=== PATIENT | female | born 1960 | race Caucasian/White ===

== ENCOUNTER 2025-06-16 12:57 | Observation (INO) ==
[2025-06-16] MEDS: ACETAMINOPHEN 1,000 MG/100 ML VIAL IV STA (13:38)
[2025-06-16 13:56] LABS: Hematocrit (blood only) 22.9 % (37.0-47.0); Hemoglobin 6.9 g/dl (12.0-16.0); Mean Corpuscular Hemoglobin 29.7 pg (25.0-34.0); Mean Corpuscular Volume 98.7 fL (80.0-100.0); Platelet Count 122 K/uL (130-400); RDW Standard Deviation 75.7 fL (36.4-46.3); Red Blood Count 2.32 M/uL (4.20-5.40); White Blood Count 11.60 K/ul (4.8-10.8)
[2025-06-16] MEDS: PROCHLORPERAZINE 5 MG in SYRINGE 4 ML IV ONE (14:15)
[2025-06-16 14:17] LABS: Alanine Aminotransferase 33 U/L (7-52); Albumin Globulin Ratio 1.0 (0.9-2); Albumin Level 2.8 gm/dl (3.4-5.0); Alkaline Phosphatase 98 U/L (34-104); Anion Gap 11 (3-11); Bilirubin,Total 0.7 mg/dl (0.2-1.0); Blood Urea Nitrogen 31 mg/dl (6-23); Calcium 8.4 mg/dl (8.6-10.3); Carbon Dioxide 32 mmol/L (21-32); Chloride 95 mmol/L (98-107); Globulin 2.7 gm/dl (2.5-4.0); Glucose 133 mg/dl (70-99(Fasting)); Lipase 10 U/L (11-82); Magnesium 2.1 mg/dl (1.7-2.4); Potassium 3.5 mmol/L (3.5-5.1); Sodium 138 mmol/L (136-145); Total Protein 5.5 gm/dl (6.0-8.3)
[2025-06-16 14:22] LABS: INR 1.1 (0.9-1.1); Partial Thromboplastin Time 23 Seconds (21-31); Prothrombin Time 11.9 Seconds (9.0-12.0)
--- NOTE | 2025-06-16 14:23 | Emergency Department Note ---
Impression & Plan Acute on chronic anemia, Headache ED Provider Note CHIEF COMPLAINT: Headache HISTORY OF PRESENTING ILLNESS: Patient is a 64-year-old female presents to the emergency department today for complaints of a headache. She states that it has been persistent for the past week and has been unable to alleviate it with any [id number] pain medications. Patient is a dialysis patient receives dialysis Thursday and Thursday. She did have dialysis this morning but however only had half of her dialysis as there was a problem with the water supply. She denies any visual changes, dizziness, lightheadedness, syncope. She denies any falls or trauma. Patient denies chest pain, sob, breathing difficulties, abdominal pain, fevers/chills, blood in stool or urine, any recent illness, or any recent travel. REVIEW OF SYSTEMS: See HPI for pertinent positives and pertinent negatives. ALLERGIES: See below MEDICATIONS: See below PAST MEDICAL HISTORY: See below PHYSICAL EXAM: VITALS: Vitals are noted on the nurse's note and reviewed by myself. GENERAL: Non toxic, in no acute distress, non-diaphoretic. SKIN: Capillary refill <2 sec. EYES: PERRLA. EOMI. Conjunctivae without injection, sclerae without icterus. No nystagmus. NECK: Supple without nuchal rigidity. HEART: Regular rate and rhythm without murmurs gallops or rubs. LUNGS: Clear to auscultation bilaterally without wheezes, rales or rhonchi. No retractions or accessory muscle use. ABDOMEN: Positive bowel sounds x 4. Normal tympanic percussion. Soft, nontender to palpation. No masses or hepatosplenomegaly. Delgado sign negative. No CVA tenderness. No guarding, rigidity, or rebound tenderness. No focal RLQ or LLQ tenderness. MUSCULOSKELETAL: Range of motion intact all 4 extremities. Ambulatory with a steady gait. No gross musculoskeletal defects. NEURO: Sensation intact to all 4 extremities. Patient was alert and oriented. No focal neurological deficits. DIFFERENTIAL DIAGNOSIS: The differential diagnosis includes acute intracranial bleed, meningitis, encephalitis, mass or mass effect, sinusitis, infection, tumor, headache, temporal arteritis and carbon monoxide exposure, and migraine. ED COURSE AND MEDICAL DECISION MAKING: HISTORY FROM INDEPENDENT HISTORIAN: History was provided by the patient and her family members at bedside and a secondary historian. MONITOR: Continuous ekg monitor tech: Order was placed for continuous ekg monitor tech. Patient was placed on the ekg monitor tech and continuous pulse ox. Patient was noted to be in normal sinus rhythm at an initial rate of 88 bpm per my interpretation. EKG: EKG was interpreted by myself as sinus rhythm with PACs with ventricular rate of 85 bpm. INTERPRETATION OF LABS: I interpreted the labs with full lab results as below in the lab section of this note. Laboratory results pertinent to the emergent complaint are discussed in the MDM section below. The patient was advised to follow up with their PCP and/or specialist(s) for further outpatient monitoring and management of any abnormal results. INTERPRETATION OF IMAGING: Imaging studies were interpreted by myself and read by radiology as per the imaging section of this note. The patient was advised to follow up with their PCP and/or specialist(s) for further outpatient management of any non-emergent abnormal findings. CHRONIC MEDICAL/SOCIAL CONDITIONS AFFECTING CARE: No social concerns were identified as barriers to patients care. EXTERNAL RECORDS REVIEWED: Patient's nephrology report from 03/02/2025. ESCALATION OF CARE CONSIDERED: I considered admission on this patient due to acute anemia and requiring blood transfusion. CONSULTATIONS: I had a meaningful discussion about this patient with Dr. Wood who agrees with my assessment and the treatment plan. I also consulted with Dr. Ocampo who accepts the patient for admission. SUMMARY: I examined the patient for complaints of headache. A physical exam and history were performed. Nursing notes, EMR, and medication list were personally reviewed. CBC shows a mild leukocytosis with white blood cell count of 11.60. Anemia with hemoglobin of 6.9. Platelet count is 122 which appears to be baseline for the patient. PT/INR and APTT are normal. CMP does show a chloride of 95, BUN of 31, creatinine of 3.52 which is baseline for the patient. Troponin was noted to be 84.2 with a 2-hour repeat of 80. BNP was 1270. Hemoccult was negative. Chest x-ray shows some cardiomegaly with pulmonary vascular congestion and trace pleural effusions plan. With the patient's headache and not having any focal neurological findings she was ordered a CT scan without contrast of the head that showed no acute intracranial findings. Patient was ordered 1 unit of packed red blood cells for transfusion with Lasix 40 mg post transfusion. Risks versus benefits were discussed with the patient and her daughter who verbalized understanding. Consent was signed by the patient and her daughter. Patient was given 1 g of Tylenol and Compazine 5 mg with improvement in pain and nausea. I did consult Dr. Rolon for admission to the hospital. The patient was accepted. I have personally spent 45 minutes of critical care time in the direct management of this patient. This includes bedside care, interpretation of diagnostic studies, and testing, discussion with consultants, patient, and family members, and other required patient management activities. This 45 minutes is in excess of all separately billable procedures. DIAGNOSIS: Acute anemia, headache TREATMENT PLAN/DISCHARGE INSTRUCTIONS: Admit to hospitalist services. The chart was completed utilizing [employer] voice recognition software.Grammatical errors, random word insertions, pronoun errors, and incomplete sentences are an occasional consequence of this system due to software limitations, ambient noise, and hardware issues.Any formal questions or concerns about the content, text, or information contained within the body of this dictation should be directly addressed to the physician for clarification. Past Med/Surg History Problem List (Updated 06/17/25 @ 22:30 by CALLI Manzo) Central line-associated bloodstream infection Gram-positive bacteremia Acute sepsis Headache (Acute) Elevated troponin Acute on chronic anemia (Acute) Goiter Sigmoid diverticulitis Chronic sinusitis Colon polyps IBS (irritable colon syndrome) Medical History Chronic heart failure with preserved ejection fraction (HFpEF) HTN (hypertension) Chronic anemia ESRD on dialysis Primary pauci-immune necrotizing and crescentic glomerulonephritis Hypothyroid Surgical History H/O: hysterectomy Hx of colonoscopy 06/2024 Family History Father Diabetes Lung disease Mother Leukemia Son Diabetes Social History Smoking Status: Never smoker Second Hand Exposure: No; Do You Dip or Chew Tobacco: No; Tobacco Cessation Education Requested by Patient: No Hx Alcohol Use: No Hx Substance Use: No Preferred Language: Gambian Communication Ability: Effective Visual Impairment: No Limitations Hearing Ability: Normal It Consultant Required: No Beliefs That Will Affect Care: None marital status: Current Living Situation: Spouse current occupational status: retired 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 Other Information That Helps Us Care for You: No Feels Safe at Home: Yes Safety Concerns: Feels Safe At This Time Diet: other and regular Diet Comment: renal diet Dental Care, Regularly: Yes Physical Activity Frequency: Does not Exercise Seatbelt Use: always Do you think of yourself as: straight/heterosexual Gender Identity: Female Assistive Devices: Cane and Walker Allergies Allergies Allergy/AdvReac Type Severity Reaction Status Date / Time latex Allergy Unknown unknown Verified 04/10/25 11:43 Home Meds Home Medications Medication Instructions Recorded Confirmed acetaminophen 325 mg capsule 650 mg PO Q6H PRN pain 03/22/25 06/16/25 bumetanide 2 mg tablet 2 mg PO BID 04/10/25 06/16/25 calcium acetate 667 mg tablet 1,334 mg PO TIDM 04/10/25 06/16/25 carvedilol 3.125 mg tablet (Coreg) 3.125 mg PO BID 04/10/25 06/16/25 levothyroxine 125 mcg tablet 125 mcg PO MOTUWETHFR 04/10/25 06/16/25 multivitamin 1 tab PO DAILY 04/10/25 06/16/25 pantoprazole 40 mg tablet,delayed 40 mg PO DAILY 04/10/25 06/16/25 release (Protonix) amlodipine 10 mg tablet 10 mg PO DAILY 06/16/25 06/16/25 levothyroxine 125 mcg tablet 62.5 mcg PO SA 06/16/25 06/16/25 vitamin B complex and vitamin C 1 cap PO DAILY 06/16/25 06/16/25 no.20-folic acid 1 mg capsule ([place] Caps) Results & Data (ED) Vital Signs Vital Signs - 24 hr 06/16/25 12:58 Temperature 37.1 C Temperature Source Temporal Artery Scan Pulse Rate 94 H Respiratory Rate 18 Respiratory Effort / Characteristics Non-Labored Spontaneous Respiratory Depth Normal Respiratory Pattern Regular Blood Pressure 117/60 Blood Pressure Mean 79 Pulse Oximetry 99 Oxygen Delivery Method Room Air Sepsis Recent Fever Within 48 Hours No Sepsis New/Unexplained Change in Mental Status N/A Sepsis Action Taken by Nursing No Action Required Laboratory Data 06/17/25 02:46 06/17/25 02:46 Lab Results 06/16/25 06/16/25 Range/Units 13:35 14:36 WBC 11.60 H (4.8-10.8) K/ul RBC 2.32 L (4.20-5.40) M/uL Hgb 6.9 L* (12.0-16.0) g/dl Hct 22.9 L (37.0-47.0) % MCV 98.7 (80.0-100.0) fL MCH 29.7 (25.0-34.0) pg MCHC 30.1 L (32.0-36.0) g/dL RDW Std Deviation 75.7 H (36.4-46.3) fL RDW Coeff of Ct 20.9 H (11.5-14.5) % Plt Count 122 L (130-400) K/uL MPV 10.4 (9.4-12.4) fL Immature Gran % (Auto) 1.1 % Neut % (Auto) 85.4 % Lymph % (Auto) 9.9 % [place] % (Auto) 3.4 % Eos % (Auto) 0.0 % Baso % (Auto) 0.2 % Neut # (Auto) 9.90 H (1.40-6.50) K/uL Lymph # (Auto) 1.15 L (1.20-3.40) K/uL [place] # (Auto) 0.40 (0.11-0.59) K/uL Eos # (Auto) 0.00 (0.00-0.50) K/uL Baso # (Auto) 0.02 (0.00-0.20) K/uL Immature Gran # (Auto) 0.13 (0.01-0.20) K/uL Absolute Nucleated RBC 0.02 (0.00-0.12) K/uL Nucleated RBC % (auto) 0.2 % Polychromasia 1+ Anisocytosis Present PT 11.9 (9.0-12.0) Seconds INR 1.1 (0.9-1.1) APTT 23 (21-31) Seconds PTT Ratio 0.8 Sodium 138 (136-145) mmol/L Potassium 3.5 (3.5-5.1) mmol/L Chloride 95 L (98-107) mmol/L Carbon Dioxide 32 (21-32) mmol/L Anion Gap 11 (3-11) BUN 31 H (6-23) mg/dl Creatinine 3.52 H (0.6-1.2) mg/dl Est Cr Clr Drug Dosing Not Reportable eGFR 13.90 BUN/Creatinine Ratio 8.8 L (10-20) Glucose 133 H (70-99(Fasting)) mg/dl Calcium 8.4 L (8.6-10.3) mg/dl Phosphorus 2.5 (2.5-4.9) mg/dl Magnesium 2.1 (1.7-2.4) mg/dl Total Bilirubin 0.7 (0.2-1.0) mg/dl AST 36 (13-39) U/L ALT 33 (7-52) U/L Alkaline Phosphatase 98 (34-104) U/L Troponin I High Sens 84.2 H* (0-14) pg/ml Total Protein 5.5 L (6.0-8.3) gm/dl Albumin 2.8 L (3.4-5.0) gm/dl Globulin 2.7 (2.5-4.0) gm/dl Albumin/Globulin Ratio 1.0 (0.9-2) Lipase 10 L (11-82) U/L Blood Type A Positive Antibody Screen NEGATIVE Crossmatch See Detail Administered Medications Acetaminophen (Acetaminophen 325 Mg Tab) 650 mg PO Q4H PRN PRN Reason: Pain or Fever Stop: 07/16/25 17:24 Last Admin: 06/17/25 18:37 Dose: 650 mg Documented By: ayan Admin: 06/16/25 21:57 Dose: 650 mg Documented By: Admin: 06/16/25 17:37 Dose: 650 mg Documented By: POLO Amlodipine Besylate (Amlodipine Besylate 5 Mg Tab) 10 mg PO DAILY [facility] Stop: 07/17/25 08:59 Last Admin: 06/17/25 08:51 Dose: 10 mg Documented By: MAXWELL Bumetanide (Bumetanide 1 Mg Tab) 2 mg PO BID17 TWILA Stop: 07/16/25 17:29 Last Admin: 06/17/25 17:29 Dose: 2 mg Documented By: Admin: 06/17/25 08:51 Dose: 2 mg Documented By: Admin: 06/16/25 17:50 Dose: 2 mg Documented By: SIMON Calcium Acetate (Calcium Acetate 667 Mg Cap/Tab) 1,334 mg PO TIDM TWILA Stop: 07/16/25 17:29 Last Admin: 06/17/25 17:28 Dose: 1,334 mg Documented By: Admin: 06/17/25 14:27 Dose: Not Given Documented By: Admin: 06/17/25 08:50 Dose: 1,334 mg Documented By: Admin: 06/16/25 17:50 Dose: 1,334 mg Documented By: SIMON Carvedilol (Carvedilol 3.125 Mg Tab) 3.125 mg PO BID TWILA Stop: 07/16/25 20:59 Last Admin: 06/17/25 21:11 Dose: 3.125 mg Documented By: deana Admin: 06/17/25 08:51 Dose: 3.125 mg Documented By: Admin: 06/16/25 20:29 Dose: 3.125 mg Documented By: RODGER Ferrous Sulfate (Ferrous Sulfate 325 Mg Tab) 325 mg PO BIDM TWILA Stop: 07/17/25 16:59 Last Admin: 06/17/25 17:28 Dose: 325 mg Documented By: JEREMY Cefepime HCl (Maxipime 2000mg) 1,000 mg in 10 mls @ 5 mls/min IV Q24H TWILA; Protocol Stop: 06/19/25 17:59 Last Admin: 06/17/25 17:33 Dose: 5 mls/min Documented By: JEREMY Levothyroxine Sodium (Levothyroxine Sodium 125 Mcg Tablet) 62.5 mcg PO Sa@0630 TWILA Stop: 07/17/25 06:29 Last Admin: 06/17/25 05:53 Dose: 62.5 mcg Documented By: RODGER Multivitamins (Multivitamin Tab) 1 tab PO DAILY TWILA Stop: 07/17/25 08:59 Last Admin: 06/17/25 08:51 Dose: 1 tab Documented By: MAXWELL Pantoprazole Sodium (Pantoprazole 40 Mg Tab) 40 mg PO DAILY TWILA Stop: 07/17/25 08:59 Last Admin: 06/17/25 08:52 Dose: 40 mg Documented By: MAXWELL Vitamin B Complex/Folic Acid (Nephrocaps) 1 cap PO DAILY TWILA Stop: 07/17/25 08:59 Last Admin: 06/17/25 08:51 Dose: 1 cap Documented By: MAXWELL Discontinued Medications Furosemide (Furosemide 40 Mg/4 Ml Vial) 40 mg IV ONE ONE Stop: 06/16/25 14:37 Last Admin: 06/16/25 16:02 Dose: 40 mg Documented By: DAR Acetaminophen (Ofirmev) 1,000 mg in 100 mls @ 400 mls/hr IV NOW STA Stop: 06/16/25 13:37 Last Infusion: 06/16/25 14:35 Dose: Infused Documented By: Admin: 06/16/25 13:38 Dose: 400 mls/hr Documented By: LATOSHA Prochlorperazine 5 mg/ Syringe 5 mls @ 5 mls/min IV ONE ONE Stop: 06/16/25 13:24 Last Admin: 06/16/25 14:15 Dose: 5 mls/min Documented By: MELVIN Cefepime HCl (Maxipime 2000mg) 1,000 mg in 10 mls @ 5 mls/min IV NOW STA; Protocol Stop: 06/16/25 23:45 Last Admin: 06/17/25 00:36 Dose: 5 mls/min Documented By: RODGER Vancomycin HCl 2,000 mg/ (Sodium Chloride) 540 mls @ 200 mls/hr IV NOW STA Stop: 06/17/25 02:22 Last Infusion: 06/17/25 03:18 Dose: Infused Documented By: Admin: 06/17/25 00:36 Dose: 200 mls/hr Documented By: RODGER Ketorolac Tromethamine (Ketorolac Tromethamine 15 Mg/Ml Vial) 10 mg IV NOW ONE Stop: 06/16/25 20:33 Last Admin: 06/16/25 20:57 Dose: 10 mg Documented By: RODGER Miscellaneous (Patient's Height &/Or Weight Needed) 1 each N/A Q2H STA Stop: 06/16/25 17:34 Last Admin: 06/16/25 17:41 Dose: 1 each Documented By: SIMON Discharge Plan Visit Data Chief Complaint: Headache Stated Complaint: HEADACHE ED Provider: Andre Valdovinos ED Midlevel Provider: Cassandra Pickett Discharge Problem: Acute on chronic anemia, Headache Patient Disposition: Admitted As Inpatient Condition: Good Discharge Instructions Interventions: ED Discharge Assessment Last Done: 06/16/25 17:02 Discharge Problem: Headache Qualifiers: Headache type: unspecified Headache chronicity pattern: acute headache I ntractability: not intractable Qualified Code(s): R51.9 - Headache, unspecified
--- NOTE | 2025-06-16 14:25 | XRay Report ---
XR chest 1V portable HISTORY: 64 years-old Female Chest pain, nonspecific COMPARISON: None TECHNIQUE: AP view the chest FINDINGS: Right IJ dual-lumen hemodialysis catheter distal tip within the expected location of the superior cav oatrial junction. Cardiac silhouette is enlarged. Pulmonary vascular congestion. Trace pleural effusi ons. No pneumothorax. Degenerative changes of the shoulders and spine. IMPRESSION: 1. Cardiomegaly with pulmonary vascular congestion. 2. Trace pleural effusions. ACT 112: Negative or not required by law. The above report was generated using voice recognition software. It may contain grammatical, syntax o r spelling errors. Electronically signed by: Jose Lepe M.D. 06/16/2025 2:24 PM
[2025-06-16] MEDS ORDERED: SODIUM CHLORIDE 0.9% 100 ML IV PRN (14:36)
[2025-06-16 14:42] LABS: Anisocytosis Present; Immature Granulocytes # (auto) 0.13 K/uL (0.01-0.20); Immature Granulocytes % (auto) 1.1 %; Polychromasia 1+
--- NOTE | 2025-06-16 15:26 | History & Physical Report ---
Date of Service June 16, 2025 Assessment & Plan (1) Acute on chronic anemia: Plan: Admit to telemetry Patient presenting for evaluation of headache. Labs show Hgb 6.9. No obvious signs of bleeding. Patient with ongoing anemia since February. Per daughter, patient has received 3 or 4 blood transfusions as an outpatient. She does not believe she has received iron infusions or Procrit injections. While admitted to [facility] in February, patient was noted to have multiple nonspecific sclerotic foci within the T11 vertebral body, left glenoid, left posterior ninth, and left proximal humeral head - felt to be benign Has not followed with hematology as an outpatient Colonoscopy 06/2024: multiple polyps removed with pathology showing tubular adenomas - colonoscopy to be repeated in 1 year, scheduled for September 2025 1 unit PRBC Check iron studies Heme occult stool Hematology consult (2) Elevated troponin: Plan: HS troponin 84, no reports of chest pain and EKG without acute ST changes Elevated troponin in the setting of ESRD Continue to trend, resting echo (3) Headache: Plan: Improved with IV Tylenol and Compazine in the ED Head CT unremarkable (4) Primary pauci-immune necrotizing and crescentic glomerulonephritis: (5) ESRD on dialysis: Plan: Nephro consult Dialysis MWF - only received half of a treatment today due to water issues at the treatment center (6) Chronic heart failure with preserved ejection fraction (HFpEF): Plan: Volume managed with dialysis Continue [employer] Bum[employer] Updating echo (7) HTN (hypertension): Plan: Continue [employer] carvedilol amlodipine DVT PROPHYLAXIS SCDs for now due to anemia Patient seen in collaboration with Dr. Osorio. I spent a total of 75 minutes coordinating, documenting, and providing care for this patient excluding time spent in the performance of separately billed services. This included personally reviewing all current laboratories and imaging studies, medication reconciliation, outpatient chart review, and discussion with specialists. History of Present Illness Chief Complaint: Headache Primary Care Provider: Sarah Trevino 64 year old female with PMH pauci-immune necrotizing and sclerosing glomerulonephritis, ESRD on HD, chronic anemia, chronic HFpEF, and other problems listed below who presents to the ED for evaluation of headache. Daughter is at bedside who provides history. Patient has been having an ongoing headache for the past 1 week. Also has had associated lightheadedness with standing. Patient went for dialysis today and only received half a treatment due to water issues at the center. Due to ongoing headache, patient presented to the ED for further evaluation. No other symptoms reported. Denies any other recent illnesses, fevers, chills. Has been having chronic nausea and poor appetite for the past several months. Denies abdominal pain, vomiting, diarrhea, dark tarry stools, bright red bleeding per rectum. Denies chest pain, Shortness of breath, and palpitations. Patient has been on dialysis since February. Was found to be profoundly anemic with renal failure and diverticulitis. Patient was treated at [facility]. Daughter reports ongoing issues with anemia and has received 3 or 4 transfusions as an outpatient. She does not believe she has received iron infusions or Procrit injections. Patient is scheduled for EGD and colonoscopy however not until September. in the ED, labs show Hgb 6.9, HS troponin 84, EKG without acute ST changes. Head CT negative for acute findings. Patient was given IV Tylenol and IV Compazine. She has been typed and crossed for 1 unit of blood. Allergies Allergy/AdvReac Type Severity Reaction Status Date / Time latex Allergy Unknown unknown Verified 04/10/25 11:43 Home Medications Medication Instructions Recorded Confirmed Type acetaminophen 325 mg capsule 650 mg PO Q6H PRN pain 03/22/25 06/16/25 History bumetanide 2 mg tablet 2 mg PO BID 04/10/25 06/16/25 History calcium acetate 667 mg tablet 1,334 mg PO TIDM 04/10/25 06/16/25 History carvedilol 3.125 mg tablet (Coreg) 3.125 mg PO BID 04/10/25 06/16/25 History levothyroxine 125 mcg tablet 125 mcg PO MOTUWETHFR 04/10/25 06/16/25 History multivitamin 1 tab PO DAILY 04/10/25 06/16/25 History pantoprazole 40 mg tablet,delayed 40 mg PO DAILY 04/10/25 06/16/25 History release (Protonix) amlodipine 10 mg tablet 10 mg PO DAILY 06/16/25 06/16/25 History levothyroxine 125 mcg tablet 62.5 mcg PO SA 06/16/25 06/16/25 History vitamin B complex and vitamin C 1 cap PO DAILY 06/16/25 06/16/25 History no.20-folic acid 1 mg capsule (Morris Caps) Past Med/Surg History Problem List (Updated 06/16/25 @ 16:47 by CALLI Lofton) Headache Elevated troponin Acute on chronic anemia Goiter Sigmoid diverticulitis Chronic sinusitis Dialysis patient Renal impairment Colon polyps IBS (irritable colon syndrome) Medical History (Updated 06/16/25 @ 16:47 by CALLI Lofton) Chronic heart failure with preserved ejection fraction (HFpEF) HTN (hypertension) Chronic anemia ESRD on dialysis Primary pauci-immune necrotizing and crescentic glomerulonephritis Hypothyroid Surgical History H/O: hysterectomy Hx of colonoscopy 06/2024 Family History (Updated 03/22/25 @ 12:29 by Samra Oconnell LPN) Father Diabetes Lung disease Mother Leukemia Son Diabetes Social History (Updated 03/22/25 @ 12:32 by Samra Oconnell LPN) Smoking Status: Never smoker Second Hand Exposure: No; Do You Dip or Chew Tobacco: No; Tobacco Cessation Education Requested by Patient: No Hx Alcohol Use: No Hx Substance Use: No Preferred Language: Hong Konger Communication Ability: Effective Visual Impairment: No Limitations Hearing Ability: Normal 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: No Beliefs That Will Affect Care: None marital status: Current Living Situation: Spouse current occupational status: retired 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 Other Information That Helps Us Care for You: No Feels Safe at Home: Yes Safety Concerns: Feels Safe At This Time Diet: other and regular Diet Comment: renal diet Dental Care, Regularly: Yes Physical Activity Frequency: Does not Exercise Seatbelt Use: always Do you think of yourself as: straight/heterosexual Gender Identity: Female Assistive Devices: Cane and Walker Review of Systems Review of Systems: All systems reviewed & are unremarkable except as noted in HPI & below Physical Exam Constitutional: WD/WN, vitals as above + obese; no acute distress Respiratory: normal respiratory effort; no respiratory distress Auscultation: + diminished lung sounds Cardiovascular: Rate/Rhythm: regular rate and regular rhythm Vessels: normal peripheral pulses Extremities: + edema (+1-2 edema BLE) Gastrointestinal (Abdomen): Percussion/Palpation: abdomen soft; abdomen nontender Skin: no rashes, warm and dry Neurologic: no focal motor deficits Psychiatric: Orientation: oriented x 3 Sleeping, arouses easily to verbal stimuli Results & Data Results & Data Vital Signs (Past 12 Hours) Vital Signs Temp Pulse Resp BP BP Pulse Ox O2 Del Method 06/16/25 14:59 112/51 L 06/16/25 14:33 81 22 97 Room Air 06/16/25 14:33 83 06/16/25 14:00 85 96 Room Air 06/16/25 13:54 87 21 90 Room Air 06/16/25 12:58 37.1 C 94 H 18 117/60 99 Room Air Laboratory Results Short CBC 06/16/25 Range/Units 13:35 WBC 11.60 H (4.8-10.8) K/ul Hgb 6.9 L* (12.0-16.0) g/dl Hct 22.9 L (37.0-47.0) % Plt Count 122 L (130-400) K/uL BMP 06/16/25 13:35 Sodium 138 Potassium 3.5 Chloride 95 L Carbon Dioxide 32 BUN 31 H Creatinine 3.52 H Glucose 133 H Calcium 8.4 L Liver Function 06/16/25 Range/Units 13:35 Total Bilirubin 0.7 (0.2-1.0) mg/dl AST 36 (13-39) U/L ALT 33 (7-52) U/L Alkaline Phosphatase 98 (34-104) U/L Albumin 2.8 L (3.4-5.0) gm/dl Diagnostic Findings Chest X-Ray 06/16/25 13:24 XR chest 1V portable HISTORY: 64 years-old Female Chest pain, nonspecific COMPARISON: None TECHNIQUE: AP view the chest FINDINGS: Right IJ dual-lumen hemodialysis catheter distal tip within the expected location of the superior cavoatrial junction. Cardiac silhouette is enlarged. Pulmonary vascular congestion. Trace pleural effusions. No pneumothorax. Degenerative changes of the shoulders and spine. IMPRESSION: 1. Cardiomegaly with pulmonary vascular congestion. 2. Trace pleural effusions. ACT 112: Negative or not required by law. The above report was generated using voice recognition software. It may contain grammatical, syntax or spelling errors. Electronically signed by: Jose Lepe M.D. 06/16/2025 2:[address] 06/16/25 14:24 CT SCAN OF THE BRAIN WITHOUT IV CONTRAST CLINICAL HISTORY: Headaches and dizziness COMPARISON STUDY: None TECHNIQUE: Unenhanced axial CT scan of the brain was performed from the vertex to the skull base. A dose lowering technique was utilized adhering to the principles of ALARA. CT DOSE: 547.75 mGy.cm FINDINGS: No intrahepatic or extra-axial mass lesions are visualized. The ventricular system is of normal size and configuration for age. There is no CT evidence of acute cortical infarction. There is no midline shift. There is no acute hemorrhage. Mild patchy hypodensities within the white matter likely on a small vessel basis. There is a small right maxillary sinus inflammatory polyp/retention cyst. IMPRESSION: No acute intracranial findings. ACT 112: Negative or not required by law. Electronically signed by: Tk Hernández M.D. 06/16/2025 3:24 PM Code Status & VTE Plan VTE Prophylaxis Plan VTE Prophylaxis will be ordered: Yes Supervising Physician Co-Signing Physician Notes Pt seen and examined by me, care coordinated w/ L. CALLI Ocampo, pls refer to her note above for further detail. Pt is a 64 yo F with pauci-immune necrotizing and sclerosing glomerulonephritis, ESRD on HD, chronic anemia, chronic HFpEF, who presents for evaluation of headache. Daughter is at bedside who also provides history. Patient has had headache for the past 1 week. Also has had associated lightheadedness with standing. Denies any other recent illnesses, fevers, chills. Has been having chronic nausea and poor appetite since started HD. Denies abdominal pain, vomiting, diarrhea, dark tarry stools, bright red bleeding per rectum. Denies chest pain, Shortness of breath, and palpitations. Patient has been on dialysis since February. Was found to be profoundly anemic with renal failure and diverticulitis. Patient was treated at [facility]. Daughter reports ongoing issues with anemia and has received 3 or 4 transfusions as an outpatient. She does not believe she has received iron infusions or Procrit injections. Patient is scheduled for EGD and colonoscopy however not until September. In the ED, labs show Hgb 6.9, HS troponin 84, EKG without acute ST changes. Head CT negative for acute findings.Patient was given IV Tylenol and IV Compazine. She has been typed and crossed for 1 unit of blood. Currently lying in bed in [facility], feels tired. reports weight loss about 30 lbs since started HD as she has been having ongoing nausea. Heart sounds regular, lung sounds decreased. Abdomen soft, obese, nontender. pt is moving extremities. Plan to consult heme/onc regarding anemia. After my eval. Pt with temp 38C, she did not have elev. temp in ED. Will obtain UA/cultx, will obtain blood cultx. Blood transfusion was ordered in ED but it was not started yet. CXR obtained in ED w/ poss. pulm. vasc. congestion. cont. to closely monitor in PCU. MD Jo
[2025-06-16] MEDS: FUROSEMIDE 40 MG/4 ML VIAL IV ONE (16:02)
[2025-06-16 17:02] LABS: Reticulocytes # 0.060 10^6/uL (0.020-0.100)
[2025-06-16 17:19] LABS: Iron 26 mcg/dl (35-150); Total Iron Binding Cap Calc 181 mcg/dl (250-450); Transferrin 129 mg/dl (200-360); Transferrin (FE) Percent Satur 14 % (15-50)
[2025-06-16] MEDS: ACETAMINOPHEN 325 MG TAB PO PRN (17:37)
[2025-06-16] MEDS: Patient's HEIGHT &/or WEIGHT Needed STA (17:41)
[2025-06-16 17:45] LABS: Folate (Folic Acid),Ser orPlas > 22.30 ng/ml (>5.38)
[2025-06-16 17:46] LABS: Vitamin B12 622 pg/ml (180-914)
[2025-06-16] MEDS: BUMETANIDE 1 MG TAB PO SCH (17:50)
[2025-06-16] MEDS: CALCIUM ACETATE 667 MG CAP/TAB PO SCH (17:50)
--- NOTE | 2025-06-16 17:58 | Progress Note ---
Date of Service June 16, 2025 Assessment & Plan Admission and Anticipated Discharge Date Admission Date: June 16, 2025 Results & Data Vital Signs (Past 12 Hours) Vital Signs Temp Pulse Pulse Resp BP BP Pulse Ox 06/16/25 17:42 06/16/25 17:41 87 06/16/25 17:38 06/16/25 17:25 37.8 C H 90 20 124/63 96 06/16/25 17:25 37.8 C H 16 124/63 96 06/16/25 16:30 80 23 97 06/16/25 16:21 78 24 97 06/16/25 15:36 78 24 95 06/16/25 15:06 77 21 97 06/16/25 14:59 112/51 L 06/16/25 14:58 112/51 L 06/16/25 14:58 112/51 L 06/16/25 14:58 112/51 L 06/16/25 14:57 78 21 97 06/16/25 14:45 78 21 97 06/16/25 14:33 81 22 97 06/16/25 14:33 83 06/16/25 14:00 85 96 06/16/25 13:54 87 21 90 06/16/25 12:58 37.1 C 94 H 18 117/60 99 Pulse Ox O2 Del Method O2 Del Method O2 Flow Rate O2 Flow Rate 06/16/25 17:42 Nasal Cannula 1 06/16/25 17:41 06/16/25 17:38 96 Nasal Cannula 1 06/16/25 17:25 Nasal Cannula 1 06/16/25 17:25 Nasal Cannula 1 06/16/25 16:30 06/16/25 16:21 06/16/25 15:36 06/16/25 15:06 06/16/25 14:59 06/16/25 14:58 Nasal Cannula 1 06/16/25 14:58 06/16/25 14:58 06/16/25 14:57 06/16/25 14:45 Nasal Cannula 1 06/16/25 14:33 Room Air 06/16/25 14:33 06/16/25 14:00 Room Air 06/16/25 13:54 Room Air 06/16/25 12:58 Room Air
--- NOTE | 2025-06-16 19:17 | Electrocardiogram Report ---
Test Reason : Blood Pressure : */* mmHG Vent. Rate : 85 BPM Atrial Rate : 85 BPM P-R Int : 136 ms QRS Dur : 80 ms QT Int : 360 ms P-R-T Axes : 63 6 63 degrees QTcB Int : 428 ms Sinus rhythm with Premature atrial complexes Otherwise normal ECG No previous ECGs available Confirmed by Eddi Manuel ([id number]) on 06/16/2025 7:17:20 PM Referred By: REFERRED SELF Confirmed By: Eddi Manuel
[2025-06-16] MEDS: KETOROLAC TROMETHAMINE 15 MG/ML VIAL IV ONE (20:57)
--- NOTE | 2025-06-16 23:28 | CT Scan Report ---
Exam(s): CT ABDOMEN + PELVIS Without Contrast EXAM: CT Abdomen and Pelvis Without Intravenous Contrast CLINICAL HISTORY: Reason for exam: fever, anemia, nausea. PAIN: Pain Notes: fever, anemia, nausea TECHNIQUE: Axial computed tomography images of the abdomen and pelvis without intravenous contrast. CTDI is 26.77 mGy and DLP is 1460.88 mGy-cm. Automated exposure control was utilized for the study. A dose lowering technique was utilized adhering to the principles of ALARA. COMPARISON: No relevant prior studies available. FINDINGS: Exam is limited due to lack of contrast Lung bases: There are trace bilateral pleural effusions with bibasilar areas of atelectasis. There is a small pericardial effusion. ABDOMEN: Liver: The liver is enlarged. Gallbladder and bile ducts: The patient is status post cholecystectomy.. No ductal dilation. Pancreas: The visualized portions of the pancreas, on this noncontrast study, are grossly unremarkable.. Spleen: No splenomegaly. Adrenals: No mass. Kidneys and ureters: No obstructing stones. No hydronephrosis. There is a 3 cm rounded lucency in the left kidney. Stomach and bowel: There are retained foodstuffs within the stomach. There is air and stool noted in the colon. There are diverticula present on the colon. There are some slight inflammatory changes noted surrounding the proximal sigmoid colon.. PELVIS: Appendix: Unremarkable CT scan appearance noted the appendix.. Bladder: No calculi are noted within the bladder.. Reproductive: The patient appears to be status post hysterectomy.. ABDOMEN and PELVIS: Intraperitoneal space: No free air. No significant fluid collection. Bones/joints: There are degenerative changes in the spine.. Soft tissues: Unremarkable. Vasculature: There are atherosclerotic changes. No abdominal aortic aneurysm. Lymph nodes: No enlarged lymph nodes. IMPRESSION: There are diverticula present on the colon. There are some slight inflammatory changes noted surrounding the proximal sigmoid colon.. Cannot exclude acute diverticulitis. There is a possible left renal cyst. Hepatomegaly. See discussion above Electronically signed by: Markie Gomes MD 06/16/25 23:27 PM
[2025-06-16] MEDS ORDERED: VANCOMYCIN CONSULT ACTIVE PRN (23:35)
[2025-06-17 00:08] LABS: Hematocrit (blood only) 23.8 % (37.0-47.0); Hemoglobin 7.2 g/dl (12.0-16.0)
[2025-06-17] MEDS: CEFEPIME 1000MG 1,000 MG/10 ML SYR IV STA (00:36)
[2025-06-17] MEDS: VANCOMYCIN HCL 2,000 MG in SODIUM CHLORIDE 0.9% 500 ML IV STA (00:36)
[2025-06-17 03:14] LABS: Hematocrit (blood only) 23.2 % (37.0-47.0); Hemoglobin 7.1 g/dl (12.0-16.0); Mean Corpuscular Hemoglobin 29.7 pg (25.0-34.0); Mean Corpuscular Volume 97.1 fL (80.0-100.0); Platelet Count 103 K/uL (130-400); RDW Standard Deviation 74.0 fL (36.4-46.3); Red Blood Count 2.39 M/uL (4.20-5.40); White Blood Count 11.57 K/ul (4.8-10.8)
[2025-06-17 03:33] LABS: Anion Gap 8.0 (3-11); Blood Urea Nitrogen 43.0 mg/dl (6-23); Calcium 8.6 mg/dl (8.6-10.3); Carbon Dioxide 31.0 mmol/L (21-32); Chloride 96.0 mmol/L (98-107); Creatinine Clr Calc Pharmacy 13.5 ml/min; Glucose 125.0 mg/dl (70-99(Fasting)); Potassium 3.6 mmol/L (3.5-5.1); Sodium 135.0 mmol/L (136-145)
[2025-06-17] MEDS: LEVOTHYROXINE SODIUM 125 MCG TABLET PO SCH (05:53)
[2025-06-17] MEDS: NEPHROCAPS PO SCH (08:51)
[2025-06-17] MEDS: MULTIVITAMIN TAB PO SCH (08:51)
[2025-06-17] MEDS ORDERED: VANCOMYCIN HCL / NSS 1,000 MG/270 ML BAG IV SCH (09:00)
--- NOTE | 2025-06-17 10:19 | Nephrology Consultation ---
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 HD MWF at [facility]. Completed partial treatment yesterday with adequate UF and clearance. BP and volume status controlled. Electrolytes normal. Next HD is currently planned for Thursday. Rx is 3.5 hours Fx CorAL-80 400/800 2K 140Na 2Ca 35HCO3; EDW 93 kg. RIJ TDC has been functioning well. Vanessa is set up for AVF placement with Dr. Rivera in [place] as an outpatient. She is maintained on Phoslo 2 tabs QAC for hyperphosphatemia. Continue renal diet. Document I/O's. Repeat serum metabolic profile tomorrow AM. Medications are appropriate for kidney function. Vanco level pending. (2) Acute on chronic anemia: Maintained on Mircera 200 mcg q 2 weeks as outpatient. Consider additional transfusion support for Hgb <8. Suggest GI consultation for non-emergent endoscopic evaluation. Peripheral smear pending. (3) Primary pauci-immune necrotizing and crescentic glomerulonephritis: Completed steroid taper and induction with Rituxan in March. Unfortunately, kidney function did not improve. Immunoglobulin testing has been requested. ANCA titers and ESR have been ordered. (4) Headache: Febrile illness -- unclear etiology. Empiric antibiotics with vanco and cefepime have been started. Cultures pending. Exam findings are not strongly suspicious for meningitis (i.e. no nuchal rigidity). HSV PCR sent this AM. Immunoglobulin levels also requested given recent treatment with Rituxan. Differential remains large. Atypical presentation or giant cell arteritis also possible. ESR requested. History of Present Illness Reason for Consultation: ESRD Requesting Physician: Federico Razo DO Attending Physician: Federico Razo DO History of Present Illness Vanessa Christopher is a 64 year-old female with BREE-->ESKD who is maintained on in- center HD at [facility]. Vanessa started HD on February [address] [facility]. She was admitted to [facility] on February 19 after presenting with left lower quadrant pain, kidney failure (creatinine 11.2 mg/dL -- no baseline testing in several years), and anemia (hemoglobin 5.7). Urine studies consistent with glomerulonephritis without nephrotic range proteinuria. Serologic evaluation was unrevealing, including normal C3/C4, negative ANCA and RICHARD, and no paraprotein. Kidney biopsy demonstrated sclerosing pauci-immune glomerulonephritis with crescents. At least moderate chronic changes were appreciated. Vanessa was treated with high dose steroids and Rituxan (1000 mg q 14 d x 2 - last dose April 10). Unfortunately, kidney function has not responded. Follow up 24 hour urine confirmed CrCl of <10 ml/min earlier this month. At this point, her kidney dysfunction appears to have progressed to ESKD. She is maintained on HD MWF. She completed a partial treatment yesterday due to technical issues at the dialysis unit. Vanessa completed 2 hours with adequate UF and clearance. She left dialysis at ~EDW. HD treatments have been uncomplicated. She is dialyzing via at [facility]. The catheter has been functioning well. Current Rx is 3.5 hours Fx CorAL 80 400/800 2K 140Na 2Ca 35HCO3; EDW 93 kg. She endorsed a headache starting in the right side of her head around the TMJ on Thursday. She does not endorse jaw claudication. She describes throbbing in the right adventism and mild tenderness. Earlier in the week, the symptom was also causing some discomfort in the right eye and tearing. She denies visual changes. She has not experienced similar symptoms in the past. Tenderness to touch has improved. The pain has moved from her right adventism to her the front of her head and feels more generalized this AM. Discomfort resolved with treatment in the ED but has returned this AM. Vanessa denies any associated nausea or photophobia. She was not experiencing fevers or chills at home. She denies any sick contacts. In addition to her symptoms, she has also been experiencing fullness in the anterior part of her neck. As an outpatient, an US of the neck was recently completed at [facility]. The study demonstrated a few subcentimeter lymph nodes but no significantly concerning findings. CT head obtained last evening did not demonstrate any concerning pathology. Vanessa has been struggling with ongoing anemia. A blood transfusion was arranged on April 21 as an outpatient. Hemoglobin in April was 10.1 but trended down despite IV iron and GEORGINA therapy. Hgb was 8.2 on 05/24, 7.9 on 06/02, and 8.0 on 06/07. She denies any signs of active bleeding/blood loss. On 06/07, ferritin was 1645 with Tsat 31. Venofer 50 mg has been provided weekly since. She is maintained on Mircera 200 mcg q 2 weeks. Outpatient GI evaluation was arranged and endoscopic evaluation is currently scheduled for September. 1 unit PRBC transfusion support was provided overnight. Hemoglobin 6.9 --> 7.1. No melena or hematochezia has been appreciated. Vanessa has been febrile (Tmax 39). Antibiotic therapy with vancomycin and cefepime provided. She was resting comfortably in bed with mild persistent headache this AM. She denies stiff neck. Medical history is also notable for hypertension, TAPAN, and hypothyroidism. BP well controlled with amlodipine and carvedilol. GERD controlled with Protonix. Allergies Allergy/AdvReac Type Severity Reaction Status Date / Time latex Allergy Unknown unknown Verified 04/10/25 11:43 Home Medications Medication Instructions Recorded Confirmed Type acetaminophen 325 mg capsule 650 mg PO Q6H PRN pain 03/22/25 06/16/25 History bumetanide 2 mg tablet 2 mg PO BID 04/10/25 06/16/25 History calcium acetate 667 mg tablet 1,334 mg PO TIDM 04/10/25 06/16/25 History carvedilol 3.125 mg tablet (Coreg) 3.125 mg PO BID 04/10/25 06/16/25 History levothyroxine 125 mcg tablet 125 mcg PO MOTUWETHFR 04/10/25 06/16/25 History multivitamin 1 tab PO DAILY 04/10/25 06/16/25 History pantoprazole 40 mg tablet,delayed 40 mg PO DAILY 04/10/25 06/16/25 History release (Protonix) amlodipine 10 mg tablet 10 mg PO DAILY 06/16/25 06/16/25 History levothyroxine 125 mcg tablet 62.5 mcg PO SA 06/16/25 06/16/25 History vitamin B complex and vitamin C 1 cap PO DAILY 06/16/25 06/16/25 History no.20-folic acid 1 mg capsule ([place] Caps) Patient History Medical History Chronic heart failure with preserved ejection fraction (HFpEF) HTN (hypertension) Chronic anemia ESRD on dialysis Primary pauci-immune necrotizing and crescentic glomerulonephritis Hypothyroid Surgical History H/O: hysterectomy Hx of colonoscopy 06/2024 Family History Father Diabetes Lung disease Mother Leukemia Son Diabetes Social History Smoking Status: Never smoker Second Hand Exposure: No; Do You Dip or Chew Tobacco: No; Tobacco Cessation Education Requested by Patient: No Hx Alcohol Use: No Hx Substance Use: No Preferred Language: [place]az[place] Communication Ability: Effective Visual Impairment: No Limitations Hearing Ability: Normal Chemical Laboratory Assistant Required: No Beliefs That Will Affect Care: None marital status: Current Living Situation: Spouse current occupational status: 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 Other Information That Helps Us Care for You: No Feels Safe at Home: Yes Safety Concerns: Feels Safe At This Time Diet: other and regular Diet Comment: renal diet Dental Care, Regularly: Yes Physical Activity Frequency: Does not Exercise Seatbelt Use: always Do you think of yourself as: straight/heterosexual Gender Identity: Female Assistive Devices: Cane and Walker Review of Systems Review of Systems: All systems reviewed & are unremarkable except as noted in HPI & below Constitutional: + fatigue; no chills Eyes: no worsening vision Ear, Nose, Mouth, Throat: + sinus pain/pressure (no pain, chronic sinus congestion); no hearing loss, no post nasal drip and no dysphagia Respiratory: + cough (chronic non-productive); no dys pnea Cardiovascular: no problem reported Gastrointestinal: no diarrhea/loose stools, no blood in stools, no melena and no problem reported Genitourinary: no problem reported Musculoskeletal: + joint pain; no problem reported Integumentary: + wounds (bruising on both arms); no zack h and no new lesions Neurologic: no problem reported Psychiatric: no problem reported Endocrine: + fatigue; no problem reported Hematologic / Lymphatic: + easy bleeding and + easy bruising Physical Exam Constitutional: WD/WN, vitals as above no acute distress Eyes: + anicteric sclerae, PERRL and EOM intac t bilaterally; no conjunctival abnormality ENMT: external ear and nose normal, oropharynx normal Neck: trachea midline and + thick neck; neck nontender and no nuchal rigidity Thyroid: no thyromegaly and no thyroid mass RIJ TDC Respiratory: normal respiratory effort; no labored breathing Cardiovascular: Rate/Rhythm: regular rate and regular rhythm Heart Sounds: normal S1 and normal S2 Extremities: no edema Musculoskeletal: Extremities: no cyanosis and no clubbing Skin: + dry skin and + ecchymosis; no jaundice and no purpura Neurologic: awake Psychiatric: Orientation: alert and oriented x 3 Results & Data Vital Signs (Past 12 Hours) Vital Signs Temp Pulse Resp BP Pulse Ox O2 Del Method O2 Flow Rate 06/17/25 07:27 38.4 C H 91 H 18 136/61 90 Nasal Cannula 2 06/16/25 22:44 37.7 C H 85 91 Room Air Laboratory Results Laboratory Results - last 24 hr 06/16/25 06/16/25 06/16/25 13:35 14:36 16:37 WBC 11.60 H RBC 2.32 L Hgb 6.9 L* Hct 22.9 L MCV 98.7 MCH 29.7 MCHC 30.1 L RDW Std Deviation 75.[address] of [address] 20.9 H Plt Count 122 L MPV 10.4 Immature Gran % (Auto) 1.1 Neut % (Auto) 85.4 Lymph % (Auto) 9.9 [place] % (Auto) 3.4 Eos % (Auto) 0.0 Baso % (Auto) 0.2 Reticulocyte % (Auto) 2.93 H Neut # (Auto) 9.90 H Lymph # (Auto) 1.15 L [place] # (Auto) 0.40 Eos # (Auto) 0.00 Baso # (Auto) 0.02 Reticulocyte # 0.060 Immature Gran # (Auto) 0.13 Absolute Nucleated RBC 0.02 Nucleated RBC % (auto) 0.2 Polychromasia 1+ Anisocytosis Present Peripher Smr Path Cons PT 11.9 INR 1.1 APTT 23 PTT Ratio 0.8 Sodium 138 Potassium 3.5 Chloride 95 L Carbon Dioxide 32 Anion Gap 11 BUN 31 H Creatinine 3.52 H Est Cr Clr Drug Dosing Not Reportable eGFR 13.90 BUN/Creatinine Ratio 8.8 L Glucose 133 H Calcium 8.4 L Phosphorus 2.5 Magnesium 2.1 Iron 26 L TIBC 181 L Transferrin 129 L Transferrin % Sat 14 L Total Bilirubin 0.7 AST 36 ALT 33 Alkaline Phosphatase 98 Troponin I High Sens 84.2 H* 80.0 H* B-Natriuretic Peptide 1270 H Total Protein 5.5 L Albumin 2.8 L Globulin 2.7 Albumin/Globulin Ratio 1.0 Lipase 10 L Vitamin B12 622 Folate > 22.30 Procalcitonin Blood Type A Positive Blood Type Recheck A Positive Antibody Screen NEGATIVE Crossmatch See Detail 06/16/25 06/17/25 23:32 02:46 WBC 11.57 H RBC 2.39 L Hgb 7.2 L 7.1 L Hct 23.8 L 23.2 L MCV 97.1 MCH 29.7 MCHC 30.6 L RDW Std Deviation 74.[address] of [address] 21.3 H Plt Count 103 L MPV 10.9 Immature Gran % (Auto) Neut % (Auto) Lymph % (Auto) [place] % (Auto) Eos % (Auto) Baso % (Auto) Reticulocyte % (Auto) Neut # (Auto) Lymph # (Auto) [place] # (Auto) Eos # (Auto) Baso # (Auto) Reticulocyte # Immature Gran # (Auto) Absolute Nucleated RBC Nucleated RBC % (auto) Polychromasia Anisocytosis Peripher Smr Path Cons Pending PT INR APTT PTT Ratio Sodium 135 L Potassium 3.6 Chloride 96 L Carbon Dioxide 31 Anion Gap 8 BUN 43 H Creatinine 4.97 H* D Est Cr Clr Drug Dosing 13.5 eGFR 9.19 BUN/Creatinine Ratio 8.7 L Glucose 125 H Calcium 8.6 Phosphorus Magnesium Iron TIBC Transferrin Transferrin % Sat Total Bilirubin AST ALT Alkaline Phosphatase Troponin I High Sens 79.4 H* 76.0 H* B-Natriuretic Peptide Total Protein Albumin Globulin Albumin/Globulin Ratio Lipase Vitamin B12 Folate Procalcitonin 2.36 H Blood Type Blood Type Recheck Antibody Screen Crossmatch Diagnostic Findings CT Abdomen and Pelvis Without Intravenous Contrast COMPARISON: No relevant prior studies available. FINDINGS: Exam is limited due to lack of contrast Lung bases: There are trace bilateral pleural effusions with bibasilar areas of atelectasis. There is a small pericardial effusion. ABDOMEN: Liver: The liver is enlarged. Gallbladder and bile ducts: The patient is status post cholecystectomy.. No ductal dilation. Pancreas: The visualized portions of the pancreas, on this noncontrast study, are grossly unremarkable.. Spleen: No splenomegaly. Adrenals: No mass. Kidneys and ureters: No obstructing stones. No hydronephrosis. There is a 3 cm rounded lucency in the left kidney. Stomach and bowel: There are retained foodstuffs within the stomach. There is air and stool noted in the colon. There are diverticula present on the colon. There are some slight inflammatory changes noted surrounding the proximal sigmoid colon.. PELVIS: Appendix: Unremarkable CT scan appearance noted the appendix.. Bladder: No calculi are noted within the bladder.. Reproductive: The patient appears to be status post hysterectomy.. ABDOMEN and PELVIS: Intraperitoneal space: No free air. No significant fluid collection. Bones/joints: There are degenerative changes in the spine.. Soft tissues: Unremarkable. Vasculature: There are atherosclerotic changes. No abdominal aortic aneurysm. Lymph nodes: No enlarged lymph nodes. IMPRESSION: There are diverticula present on the colon. There are some slight inflammatory changes noted surrounding the proximal sigmoid colon.. Cannot exclude acute diverticulitis. There is a possible left renal cyst. Hepatomegaly. CT SCAN OF THE BRAIN WITHOUT IV CONTRAST COMPARISON STUDY: None TECHNIQUE: Unenhanced axial CT scan of the brain was performed from the vertex to the skull base. A dose lowering technique was utilized adhering to the principles of ALARA. CT DOSE: 547.75 mGy.cm FINDINGS: No intrahepatic or extra-axial mass lesions are visualized. The ventricular system is of normal size and configuration for age. There is no CT evidence of acute cortical infarction. There is no midline shift. There is no acute hemorrhage. Mild patchy hypodensities within the white matter likely on a small vessel basis. There is a small right maxillary sinus inflammatory polyp/retention cyst. IMPRESSION: No acute intracranial findings. XR chest 1V portable COMPARISON: None TECHNIQUE: AP view the chest FINDINGS: Right IJ dual-lumen hemodialysis catheter distal tip within the expected loc ation of the superior cavoatrial junction. Cardiac silhouette is enlarged. Pulmonary vascular congestion. Trace pleural effusions. No pneumothorax. Degenerative changes of the shoulders and spine. IMPRESSION: 1. Cardiomegaly with pulmonary vascular congestion. 2. Trace pleural effusions. PG Care Time/CCT Total # of Minutes Spent Total Time Spent with Patient: Total time spent is greater than 50% in coordination of care (as documented) at patient's floor/unit and/or counseling patient: Coding Level of Care Code 59038 IN/OBS CONSULT LVL 5,80M Diagnoses ESRD on dialysis N18.6; Z99.2 Acute on chronic anemia D64.9 Primary pauci-immune necrotizing and crescentic glomerulonephritis N05.8; N05.7 Headache R51.9
--- NOTE | 2025-06-17 11:25 | Hospitalist Progress Note ---
Date of Service June 17, 2025 Assessment & Plan (1) Acute sepsis: (2) Gram-positive bacteremia: Plan: Enterococcus faecalis, preliminary (3) Central line-associated bloodstream infection: Plan: Suspected, present on admission (4) Chronic heart failure with preserved ejection fraction (HFpEF): (5) ESRD on dialysis: (6) Primary pauci-immune necrotizing and crescentic glomerulonephritis: (7) Hypothyroid: Plan Patient presented with headache and fever overnight. Primary blood cultures growing Enterococcus faecalis Concern for possible dialysis catheter line infection, drawl blood culture from hemodialysis catheter Continue current antibiotics while blood cultures continuing to be developed, per antibiogram Enterococcus sensitive to vancomycin Hemodialysis per nephrology If appears to have line infection may need to consider removing hemodialysis catheter Continue other medications as prescribed Will recommend infectious disease consultation on Thursday when cultures are more fully developed and infectious disease available Phone conversation with patient's daughter, Karissa, trey. Request to be kept up-to-date. She reports that she helps patient with most of her decisions. Admission and Anticipated Discharge Date Admission Date: June 16, 2025 Subjective Patient still complaining of some mild cephalgia. Seems to get better with Tylenol but then returned. Acute issue overnight with significant fever. Patient reported chills at home but unsure whether she had fever. No chest pain, no shortness of breath, no nausea or vomiting. Physical Exam Physical Exam: Constitutional: Alert, nontoxic in appearance HEENT: Mucous membranes moist. Lungs: Clear to auscultation, decreased, no wheezes rales or rhonchi CV: S1-S2, regular, no significant erythema, swelling, tenderness surrounding hemodialysis catheter right chest Abdomen: Soft, nontender, nondistended Extremities: Trace pretibial edema Neuro: No focal deficits, generally weak Psych: Cooperative, normal mood Results & Data Results & Data Vital Signs (Past 12 Hours) Vital Signs Temp Pulse Resp BP Pulse Ox O2 Del Method O2 Flow Rate 06/17/25 11:19 37.2 C 88 18 136/59 L 93 Nasal Cannula 2 06/17/25 07:27 38.4 C H 91 H 18 136/61 90 Nasal Cannula 2 Diagnostic Findings Reviewed imaging, laboratory and diagnostic studies. Pertinent findings as below. WBCs 11.5 Hemoglobin 7.1 Platelets 103 Creatinine 4.9, on hemodialysis Electrolytes reviewed Iron studies reviewed, consistent with deficiency Troponins reviewed flat, consistent with nonischemic elevated troponin due to her renal dysfunction CT abdomen reviewed, questionable mild diverticulitis Blood cultures pending
[2025-06-17 12:19] LABS: Immunoglobulin A 53.5 mg/dl (70-400); Immunoglobulin G 202.1 mg/dl (635-1741); Immunoglobulin M 20.2 mg/dl (45-281)
[2025-06-17 12:31] LABS: A calco-baum cmplx NotReported Not Detected (NotDetected); Bact fragilis Not Reported Not Detected (NotDetected); Blood Culture Id Panel See PCR Comment (NotDetected); C auris Not Reported Not Detected (NotDetected); Calbicans Not Reported Not Detected (NotDetected); Candida glabrata Not Reported Not Detected (NotDetected); Candida krusei Not Reported Not Detected (NotDetected); Cneoformans/gatti Not Reported Not Detected (NotDetected); Cparapsilosis Not Reported Not Detected (NotDetected); Ctropicalis Not Reported Not Detected (NotDetected); E cloacae compx Not Reported Not Detected (NotDetected); Efaecalis Not Reported DETECTED (NotDetected); Efaecium Not Reported Not Detected (NotDetected); Enterobacterales Not Reported Not Detected (NotDetected); Escherichia coli Not Reported Not Detected (NotDetected); H influenzae Not Reported Not Detected (NotDetected); K aerogenes Not Reported Not Detected (NotDetected); Koxytoca Not Reported Not Detected (NotDetected); Kpneumoniae grp Not Reported Not Detected (NotDetected); Lmonocyt Not Reported Not Detected (NotDetected); N meningitidis Not Reported Not Detected (NotDetected); P aeruginosa Not Reported Not Detected (NotDetected); Proteus spp Not Reported Not Detected (NotDetected); Salmonella spp Not Reported Not Detected (NotDetected); Staph lugdunensis Not Reported Not Detected (NotDetected); Staph spp. Not Reported Not Detected (NotDetected); Staphaureus Not Reported Not Detected (NotDetected); Staphepi Not Reported Not Detected (NotDetected); Stenmaltophilia Not Reported Not Detected (NotDetected); Strep agal(GrpB) Not Reported Not Detected (NotDetected); Strep pneum Not Reported Not Detected (NotDetected); Strep pyog (GrpA) Not Reported Not Detected (NotDetected); Strep spp Not Reported Not Detected (NotDetected); VanAB Resistant Gene VRE Not Detected (NotDetected)
[2025-06-17 12:59] LABS: Enterococcus faecalis DETECTED (NotDetected)
--- NOTE | 2025-06-17 14:30 | Pharmacy Report ---
Pharmacy PK ABX Note - Date of Service June 17, 2025 - Assessment and Plan Assessment 64 year old F receiving vancomycin and cefepime for treatment of bacteremia. 06/16 blood cultures (+) GPC in chains in 11/25. Blood biofire (+) E. faecalis. ESRD on iHD MWF. Day #1 of antimicrobial therapy. Plan Vancomycin * Loading dose: 2000 mg IV x 1 * Early random vanc level drawn this AM (~11h level) - 23mcg/mL. Will not re- dose today. No dialysis ordered for today - next planned for Thursday per nephrology. * Given ESRD on HD, will dose by levels (goal pre-HD level: 15-20mcg/mL). Will obtain a random level tomorrow AM as patient does make residual urine. Pharmacy will continue to follow and will adjust dose/frequency as necessary. Thank you. Pharmacy has transitioned to AUC monitoring for vancomycin. AUC/RADHA is the preferred PK/PD target and is associated with decreased risk of nephrotoxicity compared to traditional trough targets.
--- NOTE | 2025-06-17 14:33 | XCELERA ---
[id number]
[2025-06-17] MEDS: FERROUS SULFATE 325 MG TAB PO SCH (17:28)
[2025-06-17] MEDS: CEFEPIME 1000MG 1,000 MG/10 ML SYR IV SCH (17:33)
[2025-06-18 07:10] LABS: Hematocrit (blood only) 21.7 % (37.0-47.0); Hemoglobin 6.8 g/dl (12.0-16.0); Mean Corpuscular Hemoglobin 30.1 pg (25.0-34.0); Mean Corpuscular Volume 96.0 fL (80.0-100.0); Platelet Count 99 K/uL (130-400); RDW Standard Deviation 70.6 fL (36.4-46.3); Red Blood Count 2.26 M/uL (4.20-5.40); White Blood Count 8.70 K/ul (4.8-10.8)
[2025-06-18] MEDS ORDERED: SODIUM CHLORIDE 0.9% 100 ML IV PRN (07:24)
[2025-06-18 07:29] LABS: Anion Gap 10.0 (3-11); Blood Urea Nitrogen 63.0 mg/dl (6-23); Calcium 9.0 mg/dl (8.6-10.3); Carbon Dioxide 29.0 mmol/L (21-32); Chloride 96.0 mmol/L (98-107); Creatinine Clr Calc Pharmacy 11.0 ml/min; Glucose 99.0 mg/dl (70-99(Fasting)); Potassium 3.7 mmol/L (3.5-5.1); Sodium 135.0 mmol/L (136-145)
[2025-06-18 07:55] LABS: Thyroid Stimulating Hormone 0.984 uIu/ml (0.300-4.500)
[2025-06-18 08:23] LABS: Bilirubin,Total 0.5 mg/dl (0.2-1.0)
[2025-06-18 09:48] LABS: INR 1.2 (0.9-1.1); Prothrombin Time 12.7 Seconds (9.0-12.0)
--- NOTE | 2025-06-18 11:22 | Pharmacy Report ---
Pharmacy PK ABX Note - Date of Service June 18, 2025 - Assessment and Plan Assessment 06/18: Day # 2 vancomycin. Blood cultures (+) GPC in chains in 11/25 and HD cath (+) GPC in chains. Random vanc level this AM, 17.5mcg/mL. ID consulted. 06/17: 64 year old F receiving vancomycin and cefepime for treatment of bacteremia. 06/16 blood cultures (+) GPC in chains in 11/25. Blood biofire (+) E. faecalis. ESRD on iHD MWF. Day #1 of antimicrobial therapy. Plan Vancomycin * S/p loading dose: 2000 mg IV x 1 06/17 ~ midnight * Random vanc level this AM, 17.5mcg/mL - therapeutic and safe to re-dose. * Vancomycin 500mg IV X 1 today to maintain therapeutic level pre-HD in the event pt is dialyzed tomorrow (goal pre-HD level: 15-20mcg/mL). * Repeat level in AM to guide further dosing Pharmacy will continue to follow and will adjust dose/frequency as necessary. Thank you. Pharmacy has transitioned to AUC monitoring for vancomycin. AUC/RADHA is the preferred PK/PD target and is associated with decreased risk of nephrotoxicity compared to traditional trough targets.
--- NOTE | 2025-06-18 11:59 | Nephrology Progress Note ---
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 HD MWF at [facility]. BP and volume status controlled. Electrolytes normal. Next HD planned for tomorrow AM. Rx is 3.5 hours Fx CorAL-80 400/800 2K 140Na 2Ca 35HCO3; EDW 93 kg. After treatment tomorrow morning, I would suggest catheter removal and line holiday given gram positive bacteremia. Vascular surgery has been consulted. She is maintained on Phoslo 2 tabs QAC for hyperphosphatemia. Continue renal diet. Document I/O's. Repeat serum metabolic profile tomorrow AM. Medications are appropriate for kidney function. Vanco level pending. (2) Acute on chronic anemia: Plan: Maintained on Mircera 200 mcg q 2 weeks as outpatient. 1 unit PRBC transfusion provided on 06/16. Second unit infusing this AM. GI consultation pending. (3) Primary pauci-immune necrotizing and crescentic glomerulonephritis: Plan: Completed steroid taper and induction with Rituxan completed in March. Unfortunately, kidney function did not improve. Immunoglobulin testing demonstrates persistent hypogammaglobulinemia. ESR <10. (4) Gram-positive bacteremia: Plan: Primary blood cultures growing Enterococcus faecalis. Follow up cultures pending. TTE did not demonstrate any concerning vegetations. Clinically stable. Vascular has been consulted for line removal. Plan for line removal following hemodialysis tomorrow. Admission and Anticipated Discharge Date Admission Date: June 16, 2025 Subjective Tmax 38.9 overnight. Vanessa reports some generalized weakness. Headache has improved but some mild intermittent symptoms persist. No rigors. No melena or hematochezia. She denies pain. She is breathing comfortably. She denies abdominal pain. Review of Systems Review of Systems: All systems reviewed & are unremarkable except as noted in HPI & below Physical Exam Constitutional: WD/WN, vitals as above no acute distress Eyes: + anicteric sclerae; no conjunctival abn ormality ENMT: external ear and nose normal, oropharynx normal Neck: trachea midline and + thick neck; neck nontender and no nuchal rigidity Thyroid: no thyromegaly and no thyroid mass Respiratory: normal respiratory effort; no labored breathing Cardiovascular: Rate/Rhythm: regular rate and regular rhythm Heart Sounds: normal S1 and normal S2 Extremities: no edema Musculoskeletal: Extremities: no cyanosis and no clubbing Skin: + dry skin and + ecchymosis; no jaundice and no purpura Neurologic: awake Psychiatric: Orientation: alert and oriented x 3 Results & Data Vital Signs (Past 12 Hours) Vital Signs Temp Pulse Pulse Resp BP BP Pulse Ox 06/18/25 10:39 36.7 C 70 18 107/56 L 94 06/18/25 09:40 37.0 C 72 18 110/60 96 06/18/25 09:12 06/18/25 09:10 36.8 C 73 16 97/54 L 96 06/18/25 08:55 36.9 C 73 16 102/56 L 96 06/18/25 08:36 36.8 C 73 18 107/57 L 96 06/18/25 07:03 36.9 C 69 16 105/51 L 96 O2 Del Method O2 Flow Rate 06/18/25 10:39 2 06/18/25 09:40 2 06/18/25 09:12 Nasal Cannula 2 06/18/25 09:10 2 06/18/25 08:55 2 06/18/25 08:36 2 06/18/25 07:03 Nasal Cannula 2 Laboratory Results Laboratory Results - last 24 hr 06/16/25 06/16/25 06/17/25 14:36 23:32 11:14 WBC RBC Hgb Hct MCV MCH MCHC RDW Std Deviation RDW Coeff of Ct Plt Count MPV ESR PT INR Sodium Potassium Chloride Carbon Dioxide Anion Gap BUN Creatinine Est Cr Clr Drug Dosing eGFR BUN/Creatinine Ratio Glucose Calcium Total Bilirubin Direct Bilirubin Lactate Dehydrogenase C-Reactive Protein TSH Random Vancomycin 23.0 H IgG IgA IgM Enterococc faecalis PCR DETECTED A Christopher/B-Vanco Res Genes VRE Not Detected Bld Cult ID Panel PCR See PCR Comment Blood Type A Positive Antibody Screen NEGATIVE Crossmatch See Detail 06/17/25 06/17/25 06/18/25 11:38 11:39 06:36 WBC 8.70 RBC 2.26 L Hgb 6.8 L* Hct 21.7 L MCV 96.0 MCH 30.1 MCHC 31.3 L RDW Std Deviation 70.[address]eff of [address] 20.3 H Plt Count 99 L MPV 11.0 ESR 9 PT INR Sodium 135 L Potassium 3.7 Chloride 96 L Carbon Dioxide 29 Anion Gap 10 BUN 63 H D Creatinine 6.13 H* D Est Cr Clr Drug Dosing 11.0 eGFR 7.14 BUN/Creatinine Ratio 10.3 Glucose 99 Calcium 9.0 Total Bilirubin 0.5 Direct Bilirubin 0.1 Lactate Dehydrogenase 236 C-Reactive Protein 9.05 H TSH 0.984 Random Vancomycin 17.5 IgG 202.1 L IgA 53.5 L IgM 20.2 L Enterococc faecalis PCR Christopher/B-Vanco Res Genes Bld Cult ID Panel PCR Blood Type Antibody Screen Crossmatch 06/18/25 08:45 WBC RBC Hgb Hct MCV MCH MCHC RDW Std Deviation RDW Coeff of Ct Plt Count MPV ESR PT 12.7 H INR 1.2 H Sodium Potassium Chloride Carbon Dioxide Anion Gap BUN Creatinine Est Cr Clr Drug Dosing eGFR BUN/Creatinine Ratio Glucose Calcium Total Bilirubin Direct Bilirubin Lactate Dehydrogenase C-Reactive Protein TSH Random Vancomycin IgG IgA IgM Enterococc faecalis PCR Christopher/B-Vanco Res Genes Bld Cult ID Panel PCR Blood Type Antibody Screen Crossmatch PG Care Time/CCT Total # of Minutes Spent Total Time Spent with Patient: Total time spent is greater than 50% in coordination of care (as documented) at patient's floor/unit and/or counseling patient: Coding Level of Care Code 05321 SUB INP/OBS CARE 3/50MIN Diagnoses ESRD on dialysis N18.6; Z99.2 Acute on chronic anemia D64.9 Primary pauci-immune necrotizing and crescentic glomerulonephritis N05.8; N05.7 Gram-positive bacteremia R78.81
--- NOTE | 2025-06-18 12:17 | Cardiology Consultation ---
Date of Consultation June 18, 2025 Assessment & Plan (1) Central line-associated bloodstream infection: (2) Gram-positive bacteremia: (3) Elevated troponin: (4) Chronic heart failure with preserved ejection fraction (HFpEF): Plan 64 year old female with PMHx significant for pauci-immune necrotizing and sclerosing glomerulonephritis, ESRD on HD, chronic anemia, chronic HFpEF, HTN, hypothyroidism, diverticulitis, and IBS who presented to [facility] on 06/16/25 for evaluation of ongoing headaches and positional lightheadedness for the past week. Had hemodialysis on Thursday but only received half of her treatment due to problems with the water supply. Work-up in ED remarkable for low hemoglobin (6.9) and mildly elevated troponin (84). EKG with no acute ischemic changes. Received 2 unit of PRBCs during admission. Found to have positive blood cultures growing Enterococcus faecalis and started on antibiotics for bacteremia. Nephrology consulted with plan for line removal with vascular surgery after hemodialysis tomorrow. Developed a fever overnight and received Tylenol. ECHO today revealed preserved systolic function (LVEF 55-60%), mild-moderate aortic regurgitation, mild MR/TR, and no concerning valve vegetations. Plan/Recommendations: * Remains stable and asymptomatic from a cardiac standpoint * Does not appear significantly volume overloaded upon exam * Heart rate and blood pressure remain stable * High-sensitivity troponin x4 (84-80-79-76) mildly elevated but remains flat likely secondary to ESRD * Plan CHARISMA tomorrow AM to rule out infective endocarditis and NPO at midnight * Will defer to primary team and nephrology for ongoing management of bacteremia * Continue to monitor on telemetry Case discussed and coordinated with Dr. Marrero. Please see Dr. Marrero notes for further recommendations. I spent a total of 45 minutes coordinating, documenting, and providing care for this patient excluding time spent in the performance of separately billed services or time spent by another provider/QHP. CALLI Christensen Department of Cardiology Supervising Physician Co-Signing Physician Notes Patient seen and examined. Past medical history, surgical history, social history and family history have been reviewed. The medical record and all the above studies have been reviewed. Case DW TAD including management. Gram positive bacteremia Chronic HFpEF -> not in acute CHF at the time of exam ESRD on HD HTN Hypothyroidism ABN Troponin - likely due to demand ischemia 06/17/25 ECHO Interpretation Summary The study was technically difficult. Left ventricular systolic function is normal. Left Ventricular Ejection Fraction = 55-60%. Mild to moderate aortic regurgitation. Mild pulmonic valvular regurgitation. There is mild mitral regurgitation. There is mild tricuspid regurgitation. Right ventricular systolic pressure is elevated at 30-40mmHg. CHARISMA dw patient - agrees to proceed will schedule for 06/19/25 NPO post MN correct and f/u electrolytes ABX as per hospitalist continue anticoagulation GDMT for HFrEF limited due to renal insufficiency adjust dose keeping HR between 60 to 100 BPM and systolic BP between 100-140 mmHg adjust anti-HTN meds keeping systolic BP between 100-140 mmHg avoid hypovolemia keep patient euvolemic DVT prophylaxis History of Present Illness Reason for Consultation: CHARISMA; Bacteremia Requesting Physician: Kari Brennan MD Attending Physician: Kari Brennan MD History of Present Illness 64 year old female with PMHx significant for pauci-immune necrotizing and sclerosing glomerulonephritis, ESRD on HD (MWF), chronic anemia, chronic HFpEF, HTN, hypothyroidism, diverticulitis, and IBS who presented to [facility] on 06/16/25 for evaluation of ongoing headaches for the past week. She has been having ongoing headaches for the past week. Worsening lightheadedness and dizziness as well as increased head pressure with positional changes. Denies near syncopal or syncopal episodes. She went to hemodialysis on Thursday but only received half of her treatment due to problems with the water supply. She developed worsening shortness of breath and noticed lower leg swelling on Thursday after her treatment. Denies missing any dialysis sessions prior to Thursday. Denies chest pressure or pain, tachy palpitations, orthopnea, PND, or abdominal bloating. She has been dealing with chronic anemia issues outpatient and received 3-4 blood transfusions. She also states that she has been getting IV iron infusions during hemodialysis. Denies bright red blood in stool, dark tarry stools, or blood in urine. She developed a fever overnight and received Tylenol. She also notes new tremors or "jerking" motions since admission. She otherwise denies muscle aches, chills, or flu-like symptoms. Denies stroke-like symptoms. Denies tobacco, alcohol, or illicit drug use. Denies significant family history of cardiovascular disease. Allergies Allergy/AdvReac Type Severity Reaction Status Date / Time latex Allergy Unknown unknown Verified 04/10/25 11:43 Home Medications Medication Instructions Recorded Confirmed Type acetaminophen 325 mg capsule 650 mg PO Q6H PRN pain 03/22/25 06/16/25 History bumetanide 2 mg tablet 2 mg PO BID 04/10/25 06/16/25 History calcium acetate 667 mg tablet 1,334 mg PO TIDM 04/10/25 06/16/25 History carvedilol 3.125 mg tablet (Coreg) 3.125 mg PO BID 04/10/25 06/16/25 History levothyroxine 125 mcg tablet 125 mcg PO MOTUWETHFR 04/10/25 06/16/25 History multivitamin 1 tab PO DAILY 04/10/25 06/16/25 History pantoprazole 40 mg tablet,delayed 40 mg PO DAILY 04/10/25 06/16/25 History release (Protonix) amlodipine 10 mg tablet 10 mg PO DAILY 06/16/25 06/16/25 History levothyroxine 125 mcg tablet 62.5 mcg PO SA 06/16/25 06/16/25 History vitamin B complex and vitamin C 1 cap PO DAILY 06/16/25 06/16/25 History no.20-folic acid 1 mg capsule ([place] Caps) Patient History Medical History Chronic heart failure with preserved ejection fraction (HFpEF) HTN (hypertension) Chronic anemia ESRD on dialysis Primary pauci-immune necrotizing and crescentic glomerulonephritis Hypothyroid Surgical History H/O: hysterectomy Hx of colonoscopy 06/2024 Family History Father Diabetes Lung disease Mother Leukemia Son Diabetes Social History Smoking Status: Never smoker Second Hand Exposure: No; Do You Dip or Chew Tobacco: No; Tobacco Cessation Education Requested by Patient: No Hx Alcohol Use: No Hx Substance Use: No Preferred Language: Venezuelan Communication Ability: Effective Visual Impairment: No Limitations Hearing Ability: Normal Manufacturing Cost Estimator Required: No Beliefs That Will Affect Care: None marital status: Current Living Situation: Spouse current occupational status: retired 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 All others negative other than those noted in the HPI. CONSTITUTIONAL: +fever. No change in weight, No weakness, No fatigue, No sweats or chills. HEENT: No visual changes, No epistaxis, No bleeding gums, No dysphagia, PULMONARY: +shortness of breath. No cough, sputum, or hemoptysis, No wheezing, No shortness of breath, and No recent change in breathing. CARDIOVASCULAR: +edema. No chest pain, No dyspnea on exertion, No palpitations, No syncope, No claudication, No calf pain. GASTROINTESTINAL: No change in appetite, No abdominal pain, No change in bowel habits, No significant heartburn, No nausea, No vomiting, No diarrhea, No constipation, No blood in stools or black tarry stools, No dysphagia. HEMATOLOGIC: No abnormal bleeding and No bruising. NEUROLOGICAL: +lightheadedness. No falls, No dizziness, Normal balance, No headaches, and No weakness. PSYCH: No sleep disturbances, No mood changes. Physical Exam Physical Exam: Vital signs within normal limits as above. General: Well developed and nourished. No acute distress. A+Ox3. HEENT: Normocephalic. Atraumatic. EOMI. Conjunctiva and sclera clear. NECK: Trachea midline. No thyromegaly. No carotid bruits. No JVD. Carotid upstrokes are brisk. Heart: RRR. S1 and S2 noted. No murmur. No rubs or gallops. PMI non displaced. Lungs: No acute respiratory distress. Clear to auscultation. No wheezes.No rhonchi. No rales. Abdomen: Obese. Normal bowel sounds. Soft. Nontender. No abdominal bruits. Extremities: Normal capillary refill. No edema. No clubbing or cyanosis. Skin: Warm and dry. No Janeway leisons or Osler nodes noted. NEURO: No focal deficits. PSYCH: Appropriate affect and insight. Results & Data Vital Signs (Past 12 Hours) Vital Signs Temp Pulse Pulse Resp BP BP Pulse Ox 06/18/25 10:39 36.7 C 70 18 107/56 L 94 06/18/25 09:40 37.0 C 72 18 110/60 96 06/18/25 09:12 06/18/25 09:10 36.8 C 73 16 97/54 L 96 06/18/25 08:55 36.9 C 73 16 102/56 L 96 06/18/25 08:36 36.8 C 73 18 107/57 L 96 06/18/25 07:03 36.9 C 69 16 105/51 L 96 O2 Del Method O2 Flow Rate 06/18/25 10:39 2 06/18/25 09:40 2 06/18/25 09:12 Nasal Cannula 2 06/18/25 09:10 2 06/18/25 08:55 2 06/18/25 08:36 2 06/18/25 07:03 Nasal Cannula 2 Laboratory Results Cardiac Enzymes 06/18/25 Range/Units 06:36 Lactate Dehydrogenase 236 (86-244) U/L Coagulation 06/18/25 Range/Units 08:45 PT 12.7 H (9.0-12.0) Seconds CBC 06/18/25 Range/Units 06:36 WBC 8.70 (4.8-10.8) K/ul RBC 2.26 L (4.20-5.40) M/uL Hgb 6.8 L* (12.0-16.0) g/dl Hct 21.7 L (37.0-47.0) % Plt Count 99 L (130-400) K/uL Comprehensive Metabolic Panel 06/18/25 Range/Units 06:36 Sodium 135 L (136-145) mmol/L Potassium 3.7 (3.5-5.1) mmol/L Chloride 96 L (98-107) mmol/L Carbon Dioxide 29 (21-32) mmol/L BUN 63 H D (6-23) mg/dl Creatinine 6.13 H* D (0.6-1.2) mg/dl Glucose 99 (70-99(Fasting)) mg/dl Calcium 9.0 (8.6-10.3) mg/dl Direct Bilirubin 0.1 (0-0.2) mg/dl Intake and Output 06/17/25 06/18/25 06/18/25 22:59 06:59 14:59 Intake Total 0 / 0 Balance 0 / 0 Intake: Intake (Blood Product) Amt 0 / 0 Packed Cells, Leukoreduced 0 / 0 Unit [id number] Diagnostic Findings ECHO 06/17/25 Left ventricular systolic function is normal LVEF = 55-60% Mild-moderate aortic regurgitation Mild pulmonic regurgitation Mild mitral regurgitation Mild tricuspid regurgitation Mild pulmonary hypertension EKG 06/16/25 NSR with PACs 85 bpm QTc 428 ms Medications Administered Home Medications Medication Instructions Recorded Confirmed Last Taken acetaminophen 325 mg capsule 650 mg PO Q6H PRN pain 03/22/25 06/16/25 Unknown bumetanide 2 mg tablet 2 mg PO BID 04/10/25 06/16/25 Unknown calcium acetate 667 mg tablet 1,334 mg PO TIDM 04/10/25 06/16/25 Unknown carvedilol 3.125 mg tablet (Coreg) 3.125 mg PO BID 04/10/25 06/16/25 Unknown levothyroxine 125 mcg tablet 125 mcg PO MOTUWETHFR 04/10/25 06/16/25 Unknown multivitamin 1 tab PO DAILY 04/10/25 06/16/25 Unknown pantoprazole 40 mg tablet,delayed 40 mg PO DAILY 04/10/25 06/16/25 Unknown release (Protonix) amlodipine 10 mg tablet 10 mg PO DAILY 06/16/25 06/16/25 Unknown levothyroxine 125 mcg tablet 62.5 mcg PO SA 06/16/25 06/16/25 Unknown vitamin B complex and vitamin C 1 cap PO DAILY 06/16/25 06/16/25 Unknown no.20-folic acid 1 mg capsule (Oscar Caps) Active Medications Generic Name Dose Route Start Last Admin Trade Name Freq PRN Reason Stop Dose Admin Acetaminophen 650 mg 06/16/25 17:25 06/17/25 18:37 Acetaminophen 325 Mg Tab PO 07/16/25 17:24 650 mg Q4H PRN Administration Pain or Fever Amlodipine Besylate 10 mg 06/17/25 09:00 06/17/25 08:51 Amlodipine Besylate 5 Mg Tab PO 07/17/25 08:59 10 mg DAILY TWILA Administration Bumetanide 2 mg 06/16/25 17:30 06/18/25 08:09 Bumetanide 1 Mg Tab PO 07/16/25 17:29 2 mg BID17 TWILA Administration Calcium Acetate 1,334 mg 06/16/25 17:30 06/18/25 12:51 Calcium Acetate 667 Mg Cap/Tab PO 07/16/25 17:29 1,334 mg TIDM TWILA Administration Carvedilol 3.125 mg 06/16/25 21:00 06/17/25 21:11 Carvedilol 3.125 Mg Tab PO 07/16/25 20:59 3.125 mg BID TWILA Administration Ferrous Sulfate 325 mg 06/17/25 17:00 06/18/25 08:09 Ferrous Sulfate 325 Mg Tab PO 07/17/25 16:59 325 mg BIDM TWILA Administration Cefepime HCl 1,000 mg in 10 mls @ 5 mls/min 06/17/25 18:00 06/17/25 17:33 Maxipime 2000mg IV 06/19/25 17:59 5 mls/min Q24H TWILA Administration Protocol Levothyroxine Sodium 62.5 mcg 06/17/25 06:30 06/17/25 05:53 Levothyroxine Sodium 125 Mcg Tablet PO 07/17/25 06:29 62.5 mcg Sa@0630 TWILA Administration Multivitamins 1 tab 06/17/25 09:00 06/18/25 08:09 Multivitamin Tab PO 07/17/25 08:59 1 tab DAILY TWILA Administration Pantoprazole Sodium 40 mg 06/17/25 09:00 06/18/25 08:09 Pantoprazole 40 Mg Tab PO 07/17/25 08:59 40 mg DAILY TWILA Administration Vitamin B Complex/Folic Acid 1 cap 06/17/25 09:00 06/18/25 08:09 Nephrocaps PO 07/17/25 08:59 1 cap DAILY TWILA Administration PG Care Time/CCT Total # of Minutes Spent Total Time Spent with Patient: Total time spent is greater than 50% in coordination of care (as documented) at patient's floor/unit and/or counseling patient: [place] [address] IN/OBS CONSULT LVL 5,80M Patient Type New Medical Decision Making High Complexity Diagnoses Central line-associated bloodstream infection T80.211A Gram-positive bacteremia R78.81 Elevated troponin R79.89 Chronic heart failure with preserved ejection fraction (HFpEF) I50.32 Time Spent (min) 45
--- NOTE | 2025-06-18 12:24 | Gastrointestinal Consultation ---
Date of Consultation June 18, 2025 Assessment & Plan (1) Acute on chronic anemia: Likely multifactorial. Renal failure and now this bacteremia may be playing a role. There are certainly no clinical evidence of gastrointestinal bleeding patient denies any melena hematochezia excetra. We will check a Hemoccult if negative will helpful if positive not so much. Awaiting hematology consult. Patient has a bit of a pancytopenia now with low platelets. (2) Sigmoid diverticulitis: CT changes may not reflect acute diverticulitis he clinically does not have this. This may be sequela of her bowel back in January. Alternatively this may represent a polypectomy site. I will review the previous colonoscopy report to see over the polyps were removed. She is adequately covered at this point with antibiotics. (3) Gram-positive bacteremia: (4) Colon polyps: Previous polypectomy June. Reviewed results. Evaluate indication for 1 year colon follow-up suspect previous piecemeal polypectomy. (5) ESRD on dialysis: History of Present Illness Reason for Consultation: Anemia Attending Physician: Kari Brennan MD History of Present Illness 64-year-old female GI is asked to assess for persistent recurrent anemia requiring transfusion. By patient's recall she has had up to 6 units of packed cells since January. There has been no obvious gastrointestinal bleeding either melena hematochezia dark or maroon stools. Patient had a colonoscopy performed at [facility] in June 2024. Apparently multiple polyps removed at that time and she was told to return in approximately a year. She tells me clips were placed so I assume there was a larger polyp present. Pathology and these polyps are said to be tubular adenomas Patient was admitted in January 2025 to [facility] with left-sided abdominal pain. Ultimately diagnosed with diverticulitis by her report but then developed acute renal failure with pauci-immune concentric glomerulonephritis. Patient is now on dialysis. Since her renal failure she has received to 6 units of blood's as noted above. 2 in [place] to at [place] and she believes to here. Patient has been receiving EPO and iron. Adequate iron stores. GI is consulted possibility of occult gastrointestinal bleeding. Do not see any Hemoccults. Patient had a remote history of peptic ulcer disease 20 years ago which she attributes to stress. She denies regular NSAID use. Patient currently not on oral anticoagulants. Likely receives heparin on dialysis. Patient is growing Enterococcus faecalis in her blood. May be related to line infection. Her liver tests are normal against any biliary source. There is thickening of the sigmoid colon which is described as mild. She does not have pain in the side. This may be sequela of her previous diagnosis of diverticulitis, represent a polypectomy site, or diverticulitis currently. She has been covered adequately for this bacteremia present. Echo did not show obvious endocarditis though was transthoracic and described as technically difficult study Of note Home medications list Protonix 40 mg/day. Allergies Allergy/AdvReac Type Severity Reaction Status Date / Time latex Allergy Unknown unknown Verified 04/10/25 11:43 Home Medications Medication Instructions Recorded Confirmed Type acetaminophen 325 mg capsule 650 mg PO Q6H PRN pain 03/22/25 06/16/25 History bumetanide 2 mg tablet 2 mg PO BID 04/10/25 06/16/25 History calcium acetate 667 mg tablet 1,334 mg PO TIDM 04/10/25 06/16/25 History carvedilol 3.125 mg tablet (Coreg) 3.125 mg PO BID 04/10/25 06/16/25 History levothyroxine 125 mcg tablet 125 mcg PO MOTUWETHFR 04/10/25 06/16/25 History multivitamin 1 tab PO DAILY 04/10/25 06/16/25 History pantoprazole 40 mg tablet,delayed 40 mg PO DAILY 04/10/25 06/16/25 History release (Protonix) amlodipine 10 mg tablet 10 mg PO DAILY 06/16/25 06/16/25 History levothyroxine 125 mcg tablet 62.5 mcg PO SA 06/16/25 06/16/25 History vitamin B complex and vitamin C 1 cap PO DAILY 06/16/25 06/16/25 History no.20-folic acid 1 mg capsule ([place] [facility]aps) Patient History Medical History Chronic heart failure with preserved ejection fraction (HFpEF) HTN (hypertension) Chronic anemia ESRD on dialysis Primary pauci-immune necrotizing and crescentic glomerulonephritis Hypothyroid Surgical History H/O: hysterectomy Hx of colonoscopy 06/2024 Family History Father Diabetes Lung disease Mother Leukemia Son Diabetes Social History Smoking Status: Never smoker Second Hand Exposure: No; Do You Dip or Chew Tobacco: No; Tobacco Cessation Education Requested by Patient: No Hx Alcohol Use: No Hx Substance Use: No Preferred Language: Tamaz[place] Communication Ability: Effective Visual Impairment: No Limitations Hearing Ability: Normal Negative Notcher Required: No Beliefs That Will Affect Care: None marital status: Current Living Situation: Spouse 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 No changes. GI currently denies abdominal pain heartburn indigestion. Does state occasionally has issues with eating meats. Where they hang for a few seconds though no prolonged esophageal obstructions. No diarrhea or constipation. Stools are brown Physical Exam Physical Exam: Patient lying in bed she does not appear acutely toxic or ill. Does appear chronically ill. Physical examination from H&P reviewed agree without change. GI bowel sounds are present. No guarding rebound rigidity tenderness or masses identified specifically the right lower quadrant also felt benign. Liver and spleen not clinically enlarged. No distention or hernias. Results & Data Vital Signs (Past 12 Hours) Vital Signs Temp Pulse Pulse Resp BP BP Pulse Ox 06/18/25 10:39 36.7 C 70 18 107/56 L 94 06/18/25 09:40 37.0 C 72 18 110/60 96 06/18/25 09:12 06/18/25 09:10 36.8 C 73 16 97/54 L 96 06/18/25 08:55 36.9 C 73 16 102/56 L 96 06/18/25 08:36 36.8 C 73 18 107/57 L 96 06/18/25 07:03 36.9 C 69 16 105/51 L 96 O2 Del Method O2 Flow Rate 06/18/25 10:39 2 06/18/25 09:40 2 06/18/25 09:12 Nasal Cannula 2 06/18/25 09:10 2 06/18/25 08:55 2 06/18/25 08:36 2 06/18/25 07:03 Nasal Cannula 2 PG Care Time/CCT Total # of Minutes Spent Total Time Spent with Patient: Total time spent is greater than 50% in coordination of care (as documented) at patient's floor/unit and/or counseling patient: Coding Level of Care Code 79723 INT INP/OBS CARE 2MIN Diagnoses Acute on chronic anemia D64.9 Sigmoid diverticulitis K57.32 Gram-positive bacteremia R78.81 Colon polyps K63.5 ESRD on dialysis N18.6; Z99.2
[2025-06-18] MEDS: VANCOMYCIN 500 MG in NSS 100mL IV ONE (12:51)
--- NOTE | 2025-06-18 15:45 | Hospitalist Progress Note ---
Date of Service June 18, 2025 Assessment & Plan (1) Acute sepsis: (2) Gram-positive bacteremia: (3) Central line-associated bloodstream infection: (4) Chronic heart failure with preserved ejection fraction (HFpEF): (5) ESRD on dialysis: (6) Primary pauci-immune necrotizing and crescentic glomerulonephritis: (7) Hypothyroid: Plan Ms. Christopher is 64 year old female with PMH pauci-immune necrotizing and sclerosing glomerulonephritis, ESRD on HD, chronic anemia, chronic HFpEF, and other problems listed admitted for headache and found to have bacteremia. Patient with hgb down to 6.8 this am, noting that since last transfusion hgb only went from 6.9-7.2 No signs of hemorrhage. Patient with recent history requiring blood transfusions at prior hospitalization when diagnosed with glomerulonephritis Lesions noted on CT at that time including sclerotic oci on T11, left glenoid , left rib, and left humeral head--thought to be benign at that time, but no further work up performed. Lesions noted noted on CT/CXR on admission. Patient still overall feeling poorly. Blood cx 4/4 + enterococcus on 06/16, 1/2 +on 06/17 Discussed case with daughter, Karissa #Sepsis #Bacteremia 2/2 enterococcus blood cultures with enterococcus faecalis 06/17 blood culture from [facility] 24 hours 38.9 Vascular consulted for exchange tomorrow s/p HD ID consulted Cards consulted for CHARISMA continue vanc/cefepime for now transfer back to med/tele on monitor iso relative hypotension ID consult #Acute on chronic anemia, multifactorial #Thrombocytopenia likely multifactorial iso AoCD, sepsis, renal disease Colonoscopy 06/2024: multiple polyps removed with pathology showing tubular adenomas - colonoscopy to be repeated in 1 year, scheduled for September 2025 labs with hgb of 6.9, only up to 7.2; now 6.2 this am transfusion ordered, now s/p 2 PRBC this admission repeat HH ldh 236, t bili wnl, low suspicion of active hemolysis epogen per nephrology GI consulted: low suspicion of gi bleed hemoccult pending #Elevated troponin, likely demand iso infection and renal disease HS troponin 84, no reports of chest pain and EKG without acute ST changes Elevated troponin in the setting of ESRD ctm #Primary pauci-immune necrotizing and crescentic glomerulonephritis: #ESRD on dialysis: Nephro consult Dialysis MWF - only received half of a treatment today due to water issues at the treatment center plan for HD tomorrow followed by TDC exchange # Headache: resoved Improved with IV Tylenol and Compazine in the ED Head CT unremarkable # Chronic heart failure with preserved ejection fraction (HFpEF): Volume managed with dialysis 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 #HTN (hypertension): relatively hypotensive hold 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 carvedilol amlodipine, resume as able DVT ppx SCDS iso thrombocyptopenia < 100, resume as able dispo pending ID recs and pt/OT Admission and Anticipated Discharge Date Admission Date: June 16, 2025 Subjective Reports headache has improved, but still feeling generally poor and fatigued denies chest pain, sob, or abdominal pain denies any vomiting or signs of bleeding Physical Exam Constitutional: mildly uncomfortable woman Respiratory: normal respiratory effort, lungs clear to auscultation Cardiovascular: RRR, no murmur, no edema Gastrointestinal (Abdomen): normal bowel sounds, soft, nontender, no hepatosplenomegaly Results & Data Results & Data Vital Signs (Past 12 Hours) Vital Signs Temp Pulse Pulse Resp BP BP Pulse Ox 06/18/25 15:14 76 06/18/25 15:05 78 06/18/25 12:37 36.6 C 71 17 118/62 94 06/18/25 11:40 36.6 C 71 18 109/57 L 93 06/18/25 10:39 36.7 C 70 18 107/56 L 94 06/18/25 09:40 37.0 C 72 18 110/60 96 06/18/25 09:12 06/18/25 09:10 36.8 C 73 16 97/54 L 96 06/18/25 08:55 36.9 C 73 16 102/56 L 96 06/18/25 08:36 36.8 C 73 18 107/57 L 96 06/18/25 07:03 36.9 C 69 16 105/51 L 96 O2 Del Method O2 Flow Rate 06/18/25 15:14 06/18/25 15:05 06/18/25 12:37 2 06/18/25 11:40 2 06/18/25 10:39 2 06/18/25 09:40 2 06/18/25 09:12 Nasal Cannula 2 06/18/25 09:10 2 06/18/25 08:55 2 06/18/25 08:36 2 06/18/25 07:03 Nasal Cannula 2 Laboratory Results Short CBC 06/18/25 Range/Units 06:36 WBC 8.70 (4.8-10.8) K/ul Hgb 6.8 L* (12.0-16.0) g/dl Hct 21.7 L (37.0-47.0) % Plt Count 99 L (130-400) K/uL BMP 06/18/25 06:36 Sodium 135 L Potassium 3.7 Chloride 96 L Carbon Dioxide 29 BUN 63 H D Creatinine 6.13 H* D Glucose 99 Calcium 9.0 Liver Function 06/18/25 Range/Units 06:36 Total Bilirubin 0.5 (0.2-1.0) mg/dl Direct Bilirubin 0.1 (0-0.2) mg/dl Medications Administered Home Medications Medication Instructions Recorded Confirmed Last Taken acetaminophen 325 mg capsule 650 mg PO Q6H PRN pain 03/22/25 06/16/25 Unknown bumetanide 2 mg tablet 2 mg PO BID 04/10/25 06/16/25 Unknown calcium acetate 667 mg tablet 1,334 mg PO TIDM 04/10/25 06/16/25 Unknown carvedilol 3.125 mg tablet (Coreg) 3.125 mg PO BID 04/10/25 06/16/25 Unknown levothyroxine 125 mcg tablet 125 mcg PO MOTUWETHFR 04/10/25 06/16/25 Unknown multivitamin 1 tab PO DAILY 04/10/25 06/16/25 Unknown pantoprazole 40 mg tablet,delayed 40 mg PO DAILY 04/10/25 06/16/25 Unknown release (Protonix) amlodipine 10 mg tablet 10 mg PO DAILY 06/16/25 06/16/25 Unknown levothyroxine 125 mcg tablet 62.5 mcg PO SA 06/16/25 06/16/25 Unknown vitamin B complex and vitamin C 1 cap PO DAILY 06/16/25 06/16/25 Unknown no.20-folic acid 1 mg capsule ([place] Caps) Active Medications Generic Name Dose Route Start Last Admin Trade Name Freq PRN Reason Stop Dose Admin Acetaminophen 650 mg 06/16/25 17:25 06/17/25 18:37 Acetaminophen 325 Mg Tab PO 07/16/25 17:24 650 mg Q4H PRN Administration Pain or Fever Amlodipine Besylate 10 mg 06/17/25 09:00 06/17/25 08:51 Amlodipine Besylate 5 Mg Tab PO 07/17/25 08:59 10 mg DAILY TWILA Administration Bumetanide 2 mg 06/16/25 17:30 06/18/25 08:09 Bumetanide 1 Mg Tab PO 07/16/25 17:29 2 mg BID17 TWILA Administration Calcium Acetate 1,334 mg 06/16/25 17:30 06/18/25 12:51 Calcium Acetate 667 Mg Cap/Tab PO 07/16/25 17:29 1,334 mg TIDM TWILA Administration Carvedilol 3.125 mg 06/16/25 21:00 06/17/25 21:11 Carvedilol 3.125 Mg Tab PO 07/16/25 20:59 3.125 mg BID TWILA Administration Ferrous Sulfate 325 mg 06/17/25 17:00 06/18/25 08:09 Ferrous Sulfate 325 Mg Tab PO 07/17/25 16:59 325 mg BIDM TWILA Administration Cefepime HCl 1,000 mg in 10 mls @ 5 mls/min 06/17/25 18:00 06/17/25 17:33 Maxipime 2000mg IV 06/19/25 17:59 5 mls/min Q24H TWILA Administration Protocol Levothyroxine Sodium 62.5 mcg 06/17/25 06:30 06/17/25 05:53 Levothyroxine Sodium 125 Mcg Tablet PO 07/17/25 06:29 62.5 mcg Sa@0630 TWILA Administration Multivitamins 1 tab 06/17/25 09:00 06/18/25 08:09 Multivitamin Tab PO 07/17/25 08:59 1 tab DAILY TWILA Administration Pantoprazole Sodium 40 mg 06/17/25 09:00 06/18/25 08:09 Pantoprazole 40 Mg Tab PO 07/17/25 08:59 40 mg DAILY TWILA Administration Vitamin B Complex/Folic Acid 1 cap 06/17/25 09:00 06/18/25 08:09 Nephrocaps PO 07/17/25 08:59 1 cap DAILY TWILA Administration
--- NOTE | 2025-06-18 20:38 | XRay Report ---
INDICATION: Pain. History of sclerotic lesion in the humerus. TECHNIQUE: 2 views of the left humerus were obtained. COMPARISON: None FINDINGS: No displaced acute osseous process is identified. There is a region of sclerosis measuring 1.3 x 5.1 cm in the proximal humeral shaft in its medial aspect with a narrow zone of transition Enthesopathic changes over the humeral head. IMPRESSION: Region of sclerosis in the medial aspect of the proximal shaft may represent the sclerotic lesion described in the history. Narrow zone of transition may suggest a benign fibrocystic change however if warranted, further ration with MRI may be obtained for further assessment. Electronically signed by Chandra Farrell 06-18-2025 8:38 PM
[2025-06-19 05:52] LABS: Hematocrit (blood only) 26.9 % (37.0-47.0); Hemoglobin 8.5 g/dl (12.0-16.0); Mean Corpuscular Hemoglobin 29.4 pg (25.0-34.0); Mean Corpuscular Volume 93.1 fL (80.0-100.0); Platelet Count 109 K/uL (130-400); RDW Standard Deviation 65.9 fL (36.4-46.3); Red Blood Count 2.89 M/uL (4.20-5.40); White Blood Count 9.43 K/ul (4.8-10.8)
[2025-06-19 06:12] LABS: Albumin Level 2.5 gm/dl (3.4-5.0); Anion Gap 11.0 (3-11); Blood Urea Nitrogen 72.0 mg/dl (6-23); Calcium 9.1 mg/dl (8.6-10.3); Carbon Dioxide 27.0 mmol/L (21-32); Chloride 95.0 mmol/L (98-107); Creatinine Clr Calc Pharmacy 10.2 ml/min; Glucose 101.0 mg/dl (70-99(Fasting)); Magnesium 2.3 mg/dl (1.7-2.4); Potassium 3.7 mmol/L (3.5-5.1); Sodium 133.0 mmol/L (136-145)
[2025-06-19] MEDS: LEVOTHYROXINE SODIUM 125 MCG TABLET PO SCH (06:15)
--- NOTE | 2025-06-19 07:45 | Vascular Surgery Consultation ---
<Statement entered by Madhu Heredia MD - 06/19/25 10:19> Options include: *removal of tunneled line, placement of temporary line, then re-placement of tunneled line or *removal of tunneled line, line "holiday" then re-placement of tunneled line or *treat through with IV antibiotics Will discuss with Nephrology/primary team regarding options. Date of Consultation June 19, 2025 Assessment & Plan (1) Gram-positive bacteremia: in setting of tunneled dialysis catheter seen by nephrology who recommends removal with line holiday, although removal would not be able to happen until after dialysis today, so may be more worth while to look at time for tomorrow (Thursday). Tentative plan would be for line removal with temporary line placement so she could continue to receive dialysis, and after line holiday, place new tunneled line. Would try to avoid placement on left if possible, due to plan for LUE AVF in near future (2) ESRD on dialysis: HD MWF History of Present Illness Reason for Consultation: tunneled dialysis catheter removal Requesting Physician: Dr. 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 In the ED she was found to have Hgb 6.9 and was also noted to be febrile, so blood and urine cultures obtained. Blood cultures from 06/16, 06/17, 06/18 noted to be positive for gram positive cocci in chains. She was started on IV antibiotics. She has been followed by nephrology since admission as she will need HD today, and current recommendations are for her to receive dialysis today then have line removed with line holiday, before placing new tunneled line. Of note she does follow with Dr. Rivera in [place] and has plans for LUE A VF. She has had no other dialysis catheters in the past and has had no issues with her current dialysis catheter. She overall feels a little better this morning. Still with poor appetite which is not new for her with some weakness, but denies any fevers, chills or headache. Denies any chest pain, shortness of breath, abdominal pain, diarrhea, nausea or vomiting. She has received transfusion while in house for anemia. She has been Afebrile past 24 hours. Allergies Allergy/AdvReac Type Severity Reaction Status Date / Time latex Allergy Unknown unknown Verified 04/10/25 11:43 Home Medications Medication Instructions Recorded Confirmed Type acetaminophen 325 mg capsule 650 mg PO Q6H PRN pain 03/22/25 06/16/25 History bumetanide 2 mg tablet 2 mg PO BID 04/10/25 06/16/25 History calcium acetate 667 mg tablet 1,334 mg PO TIDM 04/10/25 06/16/25 History carvedilol 3.125 mg tablet (Coreg) 3.125 mg PO BID 04/10/25 06/16/25 History levothyroxine 125 mcg tablet 125 mcg PO MOTUWETHFR 04/10/25 06/16/25 History multivitamin 1 tab PO DAILY 04/10/25 06/16/25 History pantoprazole 40 mg tablet,delayed 40 mg PO DAILY 04/10/25 06/16/25 History release (Protonix) amlodipine 10 mg tablet 10 mg PO DAILY 06/16/25 06/16/25 History levothyroxine 125 mcg tablet 62.5 mcg PO SA 06/16/25 06/16/25 History vitamin B complex and vitamin C 1 cap PO DAILY 06/16/25 06/16/25 History no.20-folic acid 1 mg capsule (Belden Caps) Patient History Medical History Chronic heart failure with preserved ejection fraction (HFpEF) HTN (hypertension) Chronic anemia ESRD on dialysis Primary pauci-immune necrotizing and crescentic glomerulonephritis Hypothyroid Surgical History H/O: hysterectomy Hx of colonoscopy 06/2024 Family History Father Diabetes Lung disease Mother Leukemia Son Diabetes Social History Smoking Status: Never smoker Second Hand Exposure: No; Do You Dip or Chew Tobacco: No; Tobacco Cessation Education Requested by Patient: No Hx Alcohol Use: No Hx Substance Use: No Preferred Language: Kiswahili Communication Ability: Effective Visual Impairment: No Limitations Hearing Ability: Normal Smokehouse Operator Required: No Beliefs That Will Affect Care: None marital status: Current Living Situation: Spouse current occupational status: 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 Other Information That Helps Us Care for You: No Feels Safe at Home: Yes Safety Concerns: Feels Safe At This Time Diet: other and regular Diet Comment: renal diet Dental Care, Regularly: Yes Physical Activity Frequency: Does not Exercise Seatbelt Use: always Do you think of yourself as: straight/heterosexual Gender Identity: Female Assistive Devices: Cane and Walker Review of Systems Constitutional: see HPI Respiratory: See HPI, also denies coughing or wheezing Cardiovascular: Additional Comments: See HPI, also denies increased swelling in extremities, palpitations Gastrointestinal: see HPI Genitourinary: still makes urine Integumentary: no itching, rashes or ulcers/lesions Neurologic: no numbness or tingling, no extremity weakness Hematologic / Lymphatic: history of anemia Physical Exam Constitutional: WDWN, in no distress, lying in bed Neck: supple, trachea midline, no lymphadenopathy Respiratory: no increased work of breathing or accessory muscle use, CTAB Cardiovascular: RRR, no peripheral edema noted. Radial pulses +2 bilaterally Pedal pulses +2 bilaterally Chest (Breasts): Additional Comments: right sided tunneled dialysis catheter in place, no obvious redness to tunnel, no drainage from tunnel Skin: warm and dry with bruising noted on upper extremities Neurologic: no focal deficits noted. Results & Data Vital Signs (Past 12 Hours) Vital Signs Temp Pulse Pulse Resp BP Pulse Ox O2 Del Method 06/19/25 07:37 71 06/19/25 03:26 36.9 C 75 20 111/55 L 94 Room Air 06/18/25 23:47 36.7 C 77 16 95 Nasal Cannula 06/18/25 22:03 82 O2 Flow Rate 06/19/25 07:37 06/19/25 03:26 06/18/25 23:47 1 06/18/25 22:03 Laboratory Results 06/18/25 06:36 Aerobic Blood Culture - Preliminary Blood Gram positive cocci in chains Anaerobic Blood Culture - Preliminary No growth in Anaerobic bottle after 24 hours. 06/18/25 06:44 Aerobic Blood Culture - Preliminary Blood Gram positive cocci in chains Anaerobic Blood Culture - Pending 06/16/25 23:32 Aerobic Blood Culture - Preliminary Blood Gram positive cocci in chains Anaerobic Blood Culture - Preliminary Gram positive cocci in chains 06/17/25 11:37 Aerobic Blood Culture - Preliminary Blood Gram positive cocci in chains Anaerobic Blood Culture - Preliminary No growth in Anaerobic bottle after 24 hours. 06/16/25 23:32 Aerobic Blood Culture - Preliminary Blood Gram positive cocci in chains Anaerobic Blood Culture - Preliminary Gram positive cocci in chains 06/19/25 06/18/25 06/18/25 05:23 08:45 06:44 WBC 9.43 RBC 2.89 L Hgb 8.5 L Hct 26.9 L MCV 93.1 MCH 29.4 MCHC 31.6 L RDW Std Deviation 65.[address]eff of Ct 19.8 H Plt Count 109 L MPV 10.7 Peripher Smr Path Cons PT 12.7 H INR 1.2 H Sodium 133 L Potassium 3.7 Chloride 95 L Carbon Dioxide 27 Anion Gap 11 BUN 72 H Creatinine 6.60 H* D Est Cr Clr Drug Dosing 10.2 eGFR 6.54 BUN/Creatinine Ratio 10.9 Glucose 101 H Calcium 9.1 Phosphorus 3.8 Magnesium 2.3 Albumin 2.5 L Random Vancomycin 19.8 A.calcoaceticus-baumannii cmplx PCR Cancelled Bacteroides fragilis Cancelled Elsie albicans (PCR) Cancelled Elsie auris (PCR) Cancelled C. glabrata (PCR) Cancelled C. krusei (PCR) Cancelled C. parapsilosis (PCR) Cancelled C. tropicalis (PCR) Cancelled C. neoform/gattii (PCR) Cancelled Enterobacterales (PCR) Cancelled E. cloacae complex PCR Cancelled Enterococc faecalis PCR Cancelled Enterococc faecium PCR Cancelled E. coli (PCR) Cancelled H. influenzae (PCR) Cancelled Klebsiella aerogenes (PCR) Cancelled Klebsiella oxytoca PCR Cancelled K. pneumoniae group (PCR) Cancelled List. monocytogenes PCR Cancelled N. meningitidis (PCR) Cancelled Proteus species (PCR) Cancelled Salmonella spp. (PCR) Cancelled Serratia marcescens PCR Cancelled Staphylococcus sp PCR Cancelled Staph aureus (PCR) Cancelled mecA/C & MREJ Resist Gene Cancelled mecA/C-Methicil Resis Gene Cancelled mcr-1 Colistin Res Gene PCR Cancelled Staph epidermidis (PCR) Cancelled Staph lugdunensis PCR Cancelled S. maltophilia (PCR) Cancelled Streptococcus sp PCR Cancelled Strep agalactiae (PCR) Cancelled Strep pneumoniae (PCR) Cancelled S. pyogenes (PCR) Cancelled P. aeruginosa (PCR) Cancelled Christopher/B-Vanco Res Genes Cancelled blaIMP Car res Gene PCR Cancelled KPC-Carbap Res Gene PCR Cancelled blaNDM Car Res Gene PCR Cancelled OXA-48 Carbapenem Resis Gene (PCR) Cancelled blaVIM Car Res Gene PCR Cancelled CTX-M Gene Resistance (PCR) Cancelled Bld Cult ID Panel PCR Cancelled Bld Cult ID PCR Com Cancelled Crossmatch 06/16/25 06/16/25 23:32 14:36 WBC RBC Hgb Hct MCV MCH MCHC RDW Std Deviation RDW Coeff of Ct Plt Count MPV Peripher Smr Path Cons PT INR Sodium Potassium Chloride Carbon Dioxide Anion Gap BUN Creatinine Est Cr Clr Drug Dosing eGFR BUN/Creatinine Ratio Glucose Calcium Phosphorus Magnesium Albumin Random Vancomycin A.calcoaceticus-baumannii cmplx PCR Bacteroides fragilis Elsie albicans (PCR) Elsie auris (PCR) C. glabrata (PCR) C. krusei (PCR) C. parapsilosis (PCR) C. tropicalis (PCR) C. neoform/gattii (PCR) Enterobacterales (PCR) E. cloacae complex PCR Enterococc faecalis PCR Enterococc faecium PCR E. coli (PCR) H. influenzae (PCR) Klebsiella aerogenes (PCR) Klebsiella oxytoca PCR K. pneumoniae group (PCR) List. monocytogenes PCR N. meningitidis (PCR) Proteus species (PCR) Salmonella spp. (PCR) Serratia marcescens PCR Staphylococcus sp PCR Staph aureus (PCR) mecA/C & MREJ Resist Gene mecA/C-Methicil Resis Gene mcr-1 Colistin Res Gene PCR Staph epidermidis (PCR) Staph lugdunensis PCR S. maltophilia (PCR) Streptococcus sp PCR Strep agalactiae (PCR) Strep pneumoniae (PCR) S. pyogenes (PCR) P. aeruginosa (PCR) Christopher/B-Vanco Res Genes blaIMP Car res Gene PCR KPC-Carbap Res Gene PCR blaNDM Car Res Gene PCR OXA-48 Carbapenem Resis Gene (PCR) blaVIM Car Res Gene PCR CTX-M Gene Resistance (PCR) Bld Cult ID Panel PCR Bld Cult ID PCR Com Crossmatch See Detail Diagnostic Findings Humerus X-Ray 06/18/25 15:50 INDICATION: Pain. History of sclerotic lesion in the humerus. TECHNIQUE: 2 views of the left humerus were obtained. COMPARISON: None FINDINGS: No displaced acute osseous process is identified. There is a region of sclerosis measuring 1.3 x 5.1 cm in the proximal humeral shaft in its medial aspect with a narrow zone of transition Enthesopathic changes over the humeral head. IMPRESSION: Region of sclerosis in the medial aspect of the proximal shaft may represent the sclerotic lesion described in the history. Narrow zone of transition may suggest a benign fibrocystic change however if warranted, further ration with MRI may be obtained for further assessment. Electronically signed by Chandra Farrell 06-18-2025 8:38 PM Medications Administered Home Medications Medication Instructions Recorded Confirmed Last Taken acetaminophen 325 mg capsule 650 mg PO Q6H PRN pain 03/22/25 06/16/25 Unknown bumetanide 2 mg tablet 2 mg PO BID 04/10/25 06/16/25 Unknown calcium acetate 667 mg tablet 1,334 mg PO TIDM 04/10/25 06/16/25 Unknown carvedilol 3.125 mg tablet (Coreg) 3.125 mg PO BID 04/10/25 06/16/25 Unknown levothyroxine 125 mcg tablet 125 mcg PO MOTUWETHFR 04/10/25 06/16/25 Unknown multivitamin 1 tab PO DAILY 04/10/25 06/16/25 Unknown pantoprazole 40 mg tablet,delayed 40 mg PO DAILY 04/10/25 06/16/25 Unknown release (Protonix) amlodipine 10 mg tablet 10 mg PO DAILY 06/16/25 06/16/25 Unknown levothyroxine 125 mcg tablet 62.5 mcg PO SA 06/16/25 06/16/25 Unknown vitamin B complex and vitamin C 1 cap PO DAILY 06/16/25 06/16/25 Unknown no.20-folic acid 1 mg capsule (Belden Caps) Active Medications Generic Name Dose Route Start Last Admin Trade Name Freq PRN Reason Stop Dose Admin Acetaminophen 650 mg 06/16/25 17:25 06/17/25 18:37 Acetaminophen 325 Mg Tab PO 07/16/25 17:24 650 mg Q4H PRN Administration Pain or Fever Amlodipine Besylate 10 mg 06/17/25 09:00 06/17/25 08:51 Amlodipine Besylate 5 Mg Tab PO 07/17/25 08:59 10 mg DAILY TWILA Administration Bumetanide 2 mg 06/16/25 17:30 06/18/25 17:49 Bumetanide 1 Mg Tab PO 07/16/25 17:29 2 mg BID17 TWILA Administration Calcium Acetate 1,334 mg 06/16/25 17:30 06/19/25 08:50 Calcium Acetate 667 Mg Cap/Tab PO 07/16/25 17:29 1,334 mg TIDM TWILA Administration Carvedilol 3.125 mg 06/16/25 21:00 06/17/25 21:11 Carvedilol 3.125 Mg Tab PO 07/16/25 20:59 3.125 mg BID TWILA Administration Ferrous Sulfate 325 mg 06/17/25 17:00 06/19/25 08:51 Ferrous Sulfate 325 Mg Tab PO 07/17/25 16:59 325 mg BIDM TWILA Administration Guaifenesin/Dextromethorphan 5 ml 06/18/25 20:00 06/18/25 23:57 Guaifenesin/Dextrom Syrup 100mg/10mg 5ml Udc PO 07/18/25 19:59 5 ml Q6H PRN Administration Cough Ampicillin Sodium 2,000 mg/ 100 mls @ 200 mls/hr 06/19/25 08:00 06/19/25 08:49 Sodium Chloride IV 07/03/25 07:59 Infused Q12 TWILA Infusion Levothyroxine Sodium 125 mcg 06/19/25 06:30 06/19/25 06:15 Levothyroxine Sodium 125 Mcg Tablet PO 07/19/25 06:29 125 mcg [id number]@0630 TWILA Administration Levothyroxine Sodium 62.5 mcg 06/17/25 06:30 06/17/25 05:53 Levothyroxine Sodium 125 Mcg Tablet PO 07/17/25 06:29 62.5 mcg Sa@0630 TWILA Administration Multivitamins 1 tab 06/17/25 09:00 06/19/25 08:51 Multivitamin Tab PO 07/17/25 08:59 1 tab DAILY TWILA Administration Pantoprazole Sodium 40 mg 06/17/25 09:00 06/19/25 08:51 Pantoprazole 40 Mg Tab PO 07/17/25 08:59 40 mg DAILY TWILA Administration Vitamin B Complex/Folic Acid 1 cap 06/17/25 09:00 06/19/25 08:51 Nephrocaps PO 07/17/25 08:59 1 cap DAILY TWILA Administration PG Care Time/CCT Total # of Minutes Spent Total Time Spent with Patient: Total time spent is greater than 50% in coordination of care (as documented) at patient's floor/unit and/or counseling patient: [place] [address] IN/OBS CONSULT LVL 3,45M Patient Type New History Expanded Problem Focused Exam Detailed Medical Decision Making Moderate Complexity Diagnoses Gram-positive bacteremia R78.81 ESRD on dialysis N18.6; Z99.2
[2025-06-19] MEDS: AMPICILLIN 2,000 MG in SODIUM CHLOR 0.9% MINI-B 100 ML IV SCH (08:06)
--- NOTE | 2025-06-19 10:21 | Nephrology Progress Note ---
Date of Service June 19, 2025 Assessment & Plan (1) ESRD on dialysis: (2) Gram-positive bacteremia: (3) HTN (hypertension): (4) Acute on chronic anemia: (5) Headache: (6) Acute sepsis: Plan [facility] 64 year-old female ESKD on HD at [facility], started HD on 02/28/25 while inpatient at [facility]. Admitted to [facility] on 02/19/25 with LLQ pain, kidney failure, cr. 11.2 mg/d with no prior lab in several years, hemoglobin 5.7). W/U as below consistent with glomerulonephritis without nephrotic range proteinuria. Serology negative, Bx demonstrated sclerosing pauci-immune glomerulonephritis with crescents, moderate IFTA. Treated with high dose steroids and Rituxan (1000 mg q 14 d x 2 - last dose April 10). Unfortunately, kidney function continued to decline, 24 hour urine confirmed CrCl of <10 ml/min and now transitioned to ESKD, on IHD MWF. She is dialyzing via at [facility]. Rx is 3.5 hours Fx CorAL 80 400/800 2K 140Na 2Ca 35HCO3; EDW 93 kg. Has history of hypertension, GERD and hypothyroidism. She was admitted with headache for few days and on admission she was also febrile and and found to be septic and blood culture grew Enterococcus, currently on vancomycin and cefepime. TTE was negative for vegetation but she is scheduled to have a CHARISMA. Vascular surgery consulted for removal of the tunneled dialysis catheter. Also has been having ongoing issues with anemia. At the dialysis unit she has been getting high dose of Mircera, iron and urine received blood transfusion as hemoglobin kept dropping. She denies any signs of active bleeding/blood loss. On 06/07, ferritin was 1645 with Tsat 31. Has history of colon polyp, had p olypectomy in June 2024 and plan was to have repeat colonoscopy in a year with family history of colon cancer. Blood pressure relatively stable, has been tolerating UF. Otherwise asymptomatic. --Appreciate vascular surgery assistance with removing the tunneled dialysis catheter after dialysis this morning. Will hold off on temporary access for now considering the fact that her electrolyte generally acceptable and she is still voids decent amount of urine. Ideally would like to avoid temporary access and if repeat culture comes back negative, place another tunneled dialysis catheter unless there is any urgent need for dialysis. --Monitor hemoglobin. -- Dose medications for eGFR less than 10, left nephrology precaution for future vascular access. Admission and Anticipated Discharge Date Admission Date: June 16, 2025 Subjective Vansesa was seen and evaluated during hemodialysis treatment this morning. She has been tolerating dialysis well, tolerating UF goal of 3 L, denies any dizziness lightheadedness, confusion or headache currently. No fever or chills. Blood pressure stable. Review of Systems Review of Systems: Detailed review of system was done and pertinent positives and negatives are mentioned above. Physical Exam Constitutional: WD/WN, vitals as above + obese; no acute distress Eyes: + anicteric sclerae Neck: normal visual inspection Respiratory: Auscultation: lungs clear to auscultation bilaterally Cardiovascular: RRR, no murmur, no edema Extremities: + vascular access device (Rt IJ TDC) Skin: no rashes, warm and dry Neurologic: no focal motor deficits Psychiatric: Orientation: alert and oriented x 3 Results & Data Vital Signs (Past 12 Hours) Vital Signs Temp Pulse Pulse Pulse Resp BP BP 06/19/25 10:00 74 113/52 L 06/19/25 09:35 36.5 C 74 120/52 L 06/19/25 09:29 36.5 C 76 06/19/25 07:55 36.6 C 75 20 114/50 L 06/19/25 07:37 71 06/19/25 03:26 36.9 C 75 20 111/55 L 06/18/25 23:47 36.7 C 77 16 Pulse Ox O2 Del Method O2 Flow Rate 06/19/25 10:00 06/19/25 09:35 06/19/25 09:29 06/19/25 07:55 95 Nasal Cannula 1 06/19/25 07:37 06/19/25 03:26 94 Room Air 06/18/25 23:47 95 Nasal Cannula 1 PG Care Time/CCT Total # of Minutes Spent Total Time Spent with Patient: Total time spent is greater than 50% in coordination of care (as documented) at patient's floor/unit and/or counseling patient: Coding Level of Care Code 37103 SUB INP/OBS CARE 3/50MIN Diagnoses ESRD on dialysis N18.6; Z99.2 Gram-positive bacteremia R78.81 HTN (hypertension) I10 Acute on chronic anemia D64.9 Headache R51.9 Headache chronicity pattern: acute headache Headache type: unspecified Intractability: not intractable Acute sepsis A41.9 (5) Headache Headache chronicity pattern: acute headache Headache type: unspecified Intractability: not intractable Qualified Code(s): R51.9 - Headache, unspecified
--- NOTE | 2025-06-19 11:05 | Hospitalist Progress Note ---
Date of Service June 19, 2025 Assessment & Plan (1) Acute sepsis: (2) Gram-positive bacteremia: (3) Central line-associated bloodstream infection: (4) Chronic heart failure with preserved ejection fraction (HFpEF): (5) ESRD on dialysis: (6) Primary pauci-immune necrotizing and crescentic glomerulonephritis: (7) Hypothyroid: Plan Ms. Christopher is 64 year old female with PMH pauci-immune necrotizing and sclerosing glomerulonephritis, ESRD on HD, chronic anemia, chronic HFpEF, and other problems listed admitted for headache and found to have bacteremia. Patient with hgb down to 6.8 this am, noting that since last transfusion hgb only went from 6.9-7.2 No signs of hemorrhage. Patient with recent history requiring blood transfusions at prior hospitalization when diagnosed with glomerulonephritis Lesions noted on CT at that time including sclerotic oci on T11, left glenoid , left rib, and left humeral head--thought to be benign at that time, but no further work up performed. LNo lesions noted noted on CT/CXR on admission. XR Lt humerus revealed sclerotic lesion of left humerus. Plan for CT to better characterize Blood cx 4/4 + enterococcus on 06/16, 1/2 +on 06/17 #Sepsis #Bacteremia 2/2 enterococcus blood cultures with enterococcus faecalis 06/17 blood culture from [facility] TMAX 24 hours 38.9 Vascular consulted for exchange: Plan for line placement on Thursday ID consulted Cards consulted for CHARISMA: plan for today transfer back to med/tele on monitor iso relative hypotension ID consult placed Susceptibilities noted for ampicillin, will transition for now #Acute on chronic anemia, multifactorial #Thrombocytopenia likely multifactorial iso AoCD, sepsis, renal disease Colonoscopy 06/2024: multiple polyps removed with pathology showing tubular adenomas - colonoscopy to be repeated in 1 year, scheduled for September 2025 labs with hgb of 6.9, only up to 7.2; now 6.2 this am transfusion ordered, now s/p 2 PRBC this admission repeat HH at 8.5 ldh 236, t bili wnl, low suspicion of active hemolysis epogen per nephrology GI consulted: low suspicion of gi bleed hemoccult pending #Elevated troponin, likely demand iso infection and renal disease HS troponin 84, no reports of chest pain and EKG without acute ST changes Elevated troponin in the setting of ESRD ctm #Sclerotic lesion left humerus noted on imaging in OSH 02/2025 recommended possible bone scintography CT ordered to better characterize as possible benign lesion noted #Primary pauci-immune necrotizing and crescentic glomerulonephritis: #ESRD on dialysis: Nephro consult Dialysis MWF - only received half of a treatment today due to water issues at the treatment center plan for HD tomorrow followed by TDC exchange # Headache: resoved Improved with IV Tylenol and Compazine in the ED Head CT unremarkable # Chronic heart failure with preserved ejection fraction (HFpEF): Volume managed with dialysis Continue [employer] Bumex #HTN (hypertension): relatively hypotensive hold [employer] carvedilol amlodipine, resume as able DVT ppx SCDS , platelets at 109 will start sq heparin dispo pending ID recs and pt/OT Admission and Anticipated Discharge Date Admission Date: June 16, 2025 Subjective Reports feeling better this am Denies any chest pain or sob Excited about PT/OT eval Physical Exam Constitutional: chronically ill appearing woman Respiratory: normal respiratory effort, lungs clear to auscultation Cardiovascular: RRR, no murmur, no edema Skin: multiple areas of pupura Results & Data Results & Data Vital Signs (Past 12 Hours) Vital Signs Temp Pulse Pulse Pulse Resp BP BP 06/19/25 10:30 75 109/50 L 06/19/25 10:00 74 113/52 L 06/19/25 09:35 36.5 C 74 120/52 L 06/19/25 09:29 36.5 C 76 06/19/25 07:55 36.6 C 75 20 114/50 L 06/19/25 07:37 71 06/19/25 03:26 36.9 C 75 20 111/55 L 06/18/25 23:47 36.7 C 77 16 Pulse Ox O2 Del Method O2 Flow Rate 06/19/25 10:30 06/19/25 10:00 06/19/25 09:35 06/19/25 09:29 06/19/25 07:55 95 Nasal Cannula 1 06/19/25 07:37 06/19/25 03:26 94 Room Air 06/18/25 23:47 95 Nasal Cannula 1 Laboratory Results Short CBC 06/19/25 Range/Units 05:23 WBC 9.43 (4.8-10.8) K/ul Hgb 8.5 L (12.0-16.0) g/dl Hct 26.9 L (37.0-47.0) % Plt Count 109 L (130-400) K/uL BMP 06/19/25 05:23 Sodium 133 L Potassium 3.7 Chloride 95 L Carbon Dioxide 27 BUN 72 H Creatinine 6.60 H* D Glucose 101 H Calcium 9.1 Liver Function 06/19/25 Range/Units 05:23 Albumin 2.5 L (3.4-5.0) gm/dl Medications Administered Home Medications Medication Instructions Recorded Confirmed Last Taken acetaminophen 325 mg capsule 650 mg PO Q6H PRN pain 03/22/25 06/16/25 Unknown bumetanide 2 mg tablet 2 mg PO BID 04/10/25 06/16/25 Unknown calcium acetate 667 mg tablet 1,334 mg PO TIDM 04/10/25 06/16/25 Unknown carvedilol 3.125 mg tablet (Coreg) 3.125 mg PO BID 04/10/25 06/16/25 Unknown levothyroxine 125 mcg tablet 125 mcg PO MOTUWETHFR 04/10/25 06/16/25 Unknown multivitamin 1 tab PO DAILY 04/10/25 06/16/25 Unknown pantoprazole 40 mg tablet,delayed 40 mg PO DAILY 04/10/25 06/16/25 Unknown release (Protonix) amlodipine 10 mg tablet 10 mg PO DAILY 06/16/25 06/16/25 Unknown levothyroxine 125 mcg tablet 62.5 mcg PO SA 06/16/25 06/16/25 Unknown vitamin B complex and vitamin C 1 cap PO DAILY 06/16/25 06/16/25 Unknown no.20-folic acid 1 mg capsule (Barnum Caps) Active Medications Generic Name Dose Route Start Last Admin Trade Name Freq PRN Reason Stop Dose Admin Acetaminophen 650 mg 06/16/25 17:25 06/17/25 18:37 Acetaminophen 325 Mg Tab PO 07/16/25 17:24 650 mg Q4H PRN Administration Pain or Fever Amlodipine Besylate 10 mg 06/17/25 09:00 06/17/25 08:51 Amlodipine Besylate 5 Mg Tab PO 07/17/25 08:59 10 mg DAILY TWILA Administration Bumetanide 2 mg 06/16/25 17:30 06/18/25 17:49 Bumetanide 1 Mg Tab PO 07/16/25 17:29 2 mg BID17 TWILA Administration Calcium Acetate 1,334 mg 06/16/25 17:30 06/19/25 08:50 Calcium Acetate 667 Mg Cap/Tab PO 07/16/25 17:29 1,334 mg TIDM TWILA Administration Carvedilol 3.125 mg 06/16/25 21:00 06/17/25 21:11 Carvedilol 3.125 Mg Tab PO 07/16/25 20:59 3.125 mg BID TWILA Administration Ferrous Sulfate 325 mg 06/17/25 17:00 06/19/25 08:51 Ferrous Sulfate 325 Mg Tab PO 07/17/25 16:59 325 mg BIDM TWILA Administration Guaifenesin/Dextromethorphan 5 ml 06/18/25 20:00 06/18/25 23:57 Guaifenesin/Dextrom Syrup 100mg/10mg 5ml Udc PO 07/18/25 19:59 5 ml Q6H PRN Administration Cough Ampicillin Sodium 2,000 mg/ 100 mls @ 200 mls/hr 06/19/25 08:00 06/19/25 08:49 Sodium Chloride IV 07/03/25 07:59 Infused Q12 TWILA Infusion Levothyroxine Sodium 125 mcg 06/19/25 06:30 06/19/25 06:15 Levothyroxine Sodium 125 Mcg Tablet PO 07/19/25 06:29 125 mcg [id number] TWILA Administration Levothyroxine Sodium 62.5 mcg 06/17/25 06:30 06/17/25 05:53 Levothyroxine Sodium 125 Mcg Tablet PO 07/17/25 06:29 62.5 mcg Sa@0630 TWILA Administration Multivitamins 1 tab 06/17/25 09:00 06/19/25 08:51 Multivitamin Tab PO 07/17/25 08:59 1 tab DAILY TWILA Administration Pantoprazole Sodium 40 mg 06/17/25 09:00 06/19/25 08:51 Pantoprazole 40 Mg Tab PO 07/17/25 08:59 40 mg DAILY TWILA Administration Vitamin B Complex/Folic Acid 1 cap 06/17/25 09:00 06/19/25 08:51 Nephrocaps PO 07/17/25 08:59 1 cap DAILY TWILA Administration
[2025-06-19] MEDS: EPOETIN ALFA 40,000 UNITS/ML VIAL IV ONE (11:24)
--- NOTE | 2025-06-19 12:08 | Gastroenterology Progress Note ---
Date of Service June 19, 2025 Assessment & Plan (1) Acute on chronic anemia: Plan: No overt evidence of GI bleeding at this time From a GI standpoint, we will continue to monitor peripherally as we await the results of her CHARISMA and hematology evaluation. Continue to monitor H/H. Should she develop overt GI bleeding, do not hesitate to contact us. Admission and Anticipated Discharge Date Admission Date: June 16, 2025 Supervising Physician Co-Signing Physician Notes GI will take a backseat until transesophageal echo hematology consult and acute infection manage. There is no overt gastrointestinal bleeding. She is not iron deficient. Suspect anemia multifactorial renal failure infectious process. Await fecal occult blood testing. Subjective Patient is a 64 yo female with anemia. She is off the floor during rounds due to testing. H/H 8.5/26.9 today. BUN 72, Cr 6.6. She is currently awaiting hematology evaluation for this anemia. She is on treatment for IV antibiotics. She is to have a CHARISMA this AM for evaluation for endocarditis given her gram positive bacteremia. Results & Data Results & Data Vital Signs (Past 12 Hours) Vital Signs Temp Pulse Pulse Pulse Resp BP BP 06/19/25 11:30 79 113/47 L 06/19/25 11:00 77 107/49 L 06/19/25 10:30 75 109/50 L 06/19/25 10:00 74 113/52 L 06/19/25 09:35 36.5 C 74 120/52 L 06/19/25 09:29 36.5 C 76 06/19/25 07:55 36.6 C 75 20 114/50 L 06/19/25 07:37 71 06/19/25 03:26 36.9 C 75 20 111/55 L Pulse Ox O2 Del Method O2 Flow Rate 06/19/25 11:30 06/19/25 11:00 06/19/25 10:30 06/19/25 10:00 06/19/25 09:35 06/19/25 09:29 06/19/25 07:55 95 Nasal Cannula 1 06/19/25 07:37 06/19/25 03:26 94 Room Air PG Care Time/CCT Total # of Minutes Spent Total Time Spent with Patient: Total time spent is greater than 50% in coordination of care (as documented) at patient's floor/unit and/or counseling patient: Coding Level of Care Code 15012 SUB INP/OBS CARE MIN Diagnoses Acute on chronic anemia D64.9
--- NOTE | 2025-06-19 14:28 | Cardiology Progress Note ---
Date of Service June 19, 2025 Assessment & Plan (1) Central line-associated bloodstream infection: (2) Gram-positive bacteremia: (3) Elevated troponin: (4) Chronic heart failure with preserved ejection fraction (HFpEF): Plan 64-year-old female with Enterococcus faecalis bacteremia secondary to central line/dialysis catheter. Persistent bacteremia noted. Repeat blood cultures drawn today with results pending. Cultures drawn 06/18/2025 positive for gram- positive cocci in chains. No evidence of vegetation per 2D transthoracic echocardiogram. Recommendations: * N.p.o. after midnight in anticipation of transesophageal echocardiogram 06/20/2020 * Antibiotics per internal medicine * Repeat blood cultures drawn today. * Central catheter removal after hemodialysis treatment today. Dion Guadalupe DO, [facility] Admission and Anticipated Discharge Date Admission Date: June 16, 2025 Subjective Patient seen and examined on hemodialysis. Denies chest pain or shortness of breath. No subjective fever or chills overnight. Initial blood cultures positive for Enterococcus facialis. Repeat blood culture drawn 06/18/2025 demonstrates gram-positive cocci in chains. Scheduled for dialysis catheter removal today. Review of Systems Review of Systems: All systems reviewed & are unremarkable except as noted in Subjective Physical Exam Constitutional: well nourished and + ill appearing Respiratory: no labored breathing, no retractions and does not use accessory muscles Auscultation: no crackles, no rales, no rhonchi and no wheezes Cardiovascular: Rate/Rhythm: regular rate and regular rhythm Heart Sounds: normal S1, normal S2 and + murmur (1/6 mid systolic murmur heard at the left sternal border and apex) Vessels: no JVD Extremities: no edema Gastrointestinal (Abdomen): Inspection/Auscultation: normal bowel sounds; abdomen not distended Percussion/Palpation: abdomen soft; abdomen nontender, no guarding and abdomen not rigid Neurologic: CN's II-XI intact bilaterally and moves all extremities Results & Data Vital Signs (Past 12 Hours) Vital Signs Temp Pulse Pulse Pulse Resp BP BP 06/19/25 13:00 87 108/53 L 06/19/25 12:30 82 99/55 L 06/19/25 12:00 78 103/50 L 06/19/25 11:30 79 113/47 L 06/19/25 11:00 77 107/49 L 06/19/25 10:30 75 109/50 L 06/19/25 10:00 74 113/52 L 06/19/25 09:35 36.5 C 74 120/52 L 06/19/25 09:29 36.5 C 76 06/19/25 07:55 36.6 C 75 20 114/50 L 06/19/25 07:37 71 06/19/25 03:26 36.9 C 75 20 111/55 L Pulse Ox O2 Del Method O2 Flow Rate 06/19/25 13:00 06/19/25 12:30 06/19/25 12:00 06/19/25 11:30 06/19/25 11:00 06/19/25 10:30 06/19/25 10:00 06/19/25 09:35 06/19/25 09:29 06/19/25 07:55 95 Nasal Cannula 1 06/19/25 07:37 06/19/25 03:26 94 Room Air Laboratory Results CBC 06/19/25 Range/Units 05:23 WBC 9.43 (4.8-10.8) K/ul RBC 2.89 L (4.20-5.40) M/uL Hgb 8.5 L (12.0-16.0) g/dl Hct 26.9 L (37.0-47.0) % Plt Count 109 L (130-400) K/uL Comprehensive Metabolic Panel 06/19/25 Range/Units 05:23 Sodium 133 L (136-145) mmol/L Potassium 3.7 (3.5-5.1) mmol/L Chloride 95 L (98-107) mmol/L Carbon Dioxide 27 (21-32) mmol/L BUN 72 H (6-23) mg/dl Creatinine 6.60 H* D (0.6-1.2) mg/dl Glucose 101 H (70-99(Fasting)) mg/dl Calcium 9.1 (8.6-10.3) mg/dl Albumin 2.5 L (3.4-5.0) gm/dl Intake and Output 06/18/25 06/19/25 06/19/25 22:59 06:59 14:59 Intake Total 250 / 600 100 / 100 Balance 250 / 600 100 / 100 Intake: IV 100 / 100 Ampicillin 2,000 mg In Sodium 100 / 100 Chlor 0.9% Mini-B 100 ml @ 200 mls/hr IV Q12 [facility] Rx#:[id number] Oral 250 / 490 Other: Weight 95.8 kg 95.8 kg Weight Measurement Method Built in Bedscale Built in Bedscale Patient Weight 06/20/25 06:59 Weight 95.8 kg PG Care Time/CCT Total # of Minutes Spent Total Time Spent with Patient: Total time spent is greater than 50% in coordination of care (as documented) at patient's floor/unit and/or counseling patient: Coding Level of Care Code 88192 SUB INP/OBS CARE 3/50MIN Diagnoses Central line-associated bloodstream infection T80.211A Gram-positive bacteremia R78.81 Elevated troponin R79.89 Chronic heart failure with preserved ejection fraction (HFpEF) I50.32
--- NOTE | 2025-06-19 15:21 | Infectious Disease Consult ---
Date of Service June 19, 2025 Telehealth Information I performed this visit using a real-time telehealth connection between my location and the patients location ([facility]). After connecting through interactive tele-video, patient was identified by name and date of and/or wristband check.Patient (or authorized healthcare independent sales representative) was informed that this was a telemedicine visit and it was being conducted confidentially over secure lines. My office door was closed and no one else was present in the room with me.Patient (or authorized healthcare independent sales representative) provided consent to proceed with the visit, expressed an understanding of privacy and security of the telemedicine visit, and gave permission to have a hospital independent sales representative in the room in order to assist with the visit and to conduct portions of the visit, as needed. I informed the patient (or authorized healthcare independent sales representative) that I reviewed their record and presented the opportunity for them to ask any questions regarding the visit today. The patient agreed to participate. Assessment & Plan (1) ESRD on dialysis: (2) Central line-associated bloodstream infection: (3) Enterococcus faecalis infection: (4) Gram-positive bacteremia: Plan Assessment: 64 year old female with PMHx of pauci-immune necrotizing and sclerosing glomerulonephritis, ESRD on HD, chronic anemia, chronic HFpEF who presented to [facility] on 06/16/2025 for ASHLEY and lightheadedness. Pt admitted to [facility] and infectious work-up showed Enterococcal bacteremia in 4/4 bottles. Plan: 1. Enterococcus Faecalis Bacteremia likely 2/2 CLABSI, r/o endovascular seeding - Recommend continuing Ampicillin IV. - Agree with CHARISMA as TTE was negative and pt's blood cultures were persistently positive. - Recommend blood cultures every other day until negative. - Tunneled Dialysis Catheter must be removed TAMMY. - we will not actively monitor pt, if additional recommendation please contact the ID physician salvationist for teledoc services via tiger text or call. Thank you. History of Present Illness History of Present Illness Reason for Consult: GPC bacteremia 64 year old female with PMHx of pauci-immune necrotizing and sclerosing glomerulonephritis, ESRD on HD, chronic anemia, chronic HFpEF who presented to [facility] on 06/16/2025 for ASHLEY and lightheadedness. In the ED, pt's labs show Hgb 6.9, HS troponin 84, EKG without acute ST changes. Head CT negative for acute findings. Patient was given IV Tylenol and IV Compazine. She has been typed and crossed for 1 unit of blood. Pt admitted to [facility] and infectious work-up showed Enterococcal bacteremia in 4/4 bottles. ID consulted for evaluation and management. Allergies Allergy/AdvReac Type Severity Reaction Status Date / Time latex Allergy Unknown unknown Verified 04/10/25 11:43 Home Medications Medication Instructions Recorded Confirmed Type acetaminophen 325 mg capsule 650 mg PO Q6H PRN pain 03/22/25 06/16/25 History bumetanide 2 mg tablet 2 mg PO BID 04/10/25 06/16/25 History calcium acetate 667 mg tablet 1,334 mg PO TIDM 04/10/25 06/16/25 History carvedilol 3.125 mg tablet (Coreg) 3.125 mg PO BID 04/10/25 06/16/25 History levothyroxine 125 mcg tablet 125 mcg PO MOTUWETHFR 04/10/25 06/16/25 History multivitamin 1 tab PO DAILY 04/10/25 06/16/25 History pantoprazole 40 mg tablet,delayed 40 mg PO DAILY 04/10/25 06/16/25 History release (Protonix) amlodipine 10 mg tablet 10 mg PO DAILY 06/16/25 06/16/25 History levothyroxine 125 mcg tablet 62.5 mcg PO SA 06/16/25 06/16/25 History vitamin B complex and vitamin C 1 cap PO DAILY 06/16/25 06/16/25 History no.20-folic acid 1 mg capsule ([place] Caps) Patient History Medical History Chronic heart failure with preserved ejection fraction (HFpEF) HTN (hypertension) Chronic anemia ESRD on dialysis Primary pauci-immune necrotizing and crescentic glomerulonephritis Hypothyroid Surgical History H/O: hysterectomy Hx of colonoscopy 06/2024 Family History Father Diabetes Lung disease Mother Leukemia Son Diabetes Social History Smoking Status: Never smoker Second Hand Exposure: No; Do You Dip or Chew Tobacco: No; Tobacco Cessation Education Requested by Patient: No Hx Alcohol Use: No Hx Substance Use: No Preferred Language: Indonesian Communication Ability: Effective Visual Impairment: No Limitations Hearing Ability: Normal Applications Project Manager Required: No Beliefs That Will Affect Care: None marital status: Current Living Situation: Spouse current occupational status: retired 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 Physical Exam NA Results & Data Vital Signs (Past 12 Hours) Vital Signs Temp Pulse Pulse Pulse Resp BP BP 06/19/25 13:00 87 108/53 L 06/19/25 12:30 82 99/55 L 06/19/25 12:00 78 103/50 L 06/19/25 11:30 79 113/47 L 06/19/25 11:00 77 107/49 L 06/19/25 10:30 75 109/50 L 06/19/25 10:00 74 113/52 L 06/19/25 09:35 36.5 C 74 120/52 L 06/19/25 09:29 36.5 C 76 06/19/25 07:55 36.6 C 75 20 114/50 L 06/19/25 07:37 71 06/19/25 03:26 36.9 C 75 20 111/55 L Pulse Ox O2 Del Method O2 Flow Rate 06/19/25 13:00 06/19/25 12:30 06/19/25 12:00 06/19/25 11:30 06/19/25 11:00 06/19/25 10:30 06/19/25 10:00 06/19/25 09:35 06/19/25 09:29 06/19/25 07:55 95 Nasal Cannula 1 06/19/25 07:37 06/19/25 03:26 94 Room Air Laboratory Results Blood culture on 06/16/2025 Blood Culture Aerobic Preliminary 06/19/25-1436 Organism 1 Enterococcus faecalis Sens Sensitivities to Follow Phoned positive Blood Culture Gram Stain report to Daniella Tovar on 06/17/25 at 1300 [place] [id number]. [place] [id number]. Blood Culture Anaerobic Preliminary 06/19/25-1436 Organism 1 Enterococcus faecalis Sens No Sensitivities to Follow Blood Culture PCR Panel If viewing in EMR, results available under LAB Serology tab. 06/18/25 06:44 Aerobic Blood Culture - Preliminary Blood Gram positive cocci in chains Anaerobic Blood Culture - Final 06/16/25 23:32 Aerobic Blood Culture - Preliminary Blood Enterococcus faecalis Anaerobic Blood Culture - Preliminary Enterococcus faecalis 06/19/25 13:14 Aerobic Blood Culture - Pending Blood Anaerobic Blood Culture - Pending 06/17/25 11:37 Aerobic Blood Culture - Preliminary Blood Enterococcus faecalis Anaerobic Blood Culture - Preliminary No growth in Anaerobic bottle after 48 hours. 06/16/25 23:32 Aerobic Blood Culture - Preliminary Blood Enterococcus faecalis Anaerobic Blood Culture - Preliminary Enterococcus faecalis 06/18/25 06:36 Aerobic Blood Culture - Preliminary Blood Gram positive cocci in chains Anaerobic Blood Culture - Preliminary No growth in Anaerobic bottle after 24 hours. 06/19/25 06/18/25 05:23 06:44 WBC 9.43 RBC 2.89 L Hgb 8.5 L Hct 26.9 L MCV 93.1 MCH 29.4 MCHC 31.6 L RDW Std Deviation 65.[address]eff of Ct 19.8 H Plt Count 109 L MPV 10.7 Sodium 133 L Potassium 3.7 Chloride 95 L Carbon Dioxide 27 Anion Gap 11 BUN 72 H Creatinine 6.60 H* D Est Cr Clr Drug Dosing 10.2 eGFR 6.54 BUN/Creatinine Ratio 10.9 Glucose 101 H Calcium 9.1 Phosphorus 3.8 Magnesium 2.3 Albumin 2.5 L Random Vancomycin 19.8 A.calcoaceticus-baumannii cmplx PCR Cancelled Bacteroides fragilis Cancelled Elsie albicans (PCR) Cancelled Elsie auris (PCR) Cancelled C. glabrata (PCR) Cancelled C. krusei (PCR) Cancelled C. parapsilosis (PCR) Cancelled C. tropicalis (PCR) Cancelled C. neoform/gattii (PCR) Cancelled Enterobacterales (PCR) Cancelled E. cloacae complex PCR Cancelled Enterococc faecalis PCR Cancelled Enterococc faecium PCR Cancelled E. coli (PCR) Cancelled H. influenzae (PCR) Cancelled Klebsiella aerogenes (PCR) Cancelled Klebsiella oxytoca PCR Cancelled K. pneumoniae group (PCR) Cancelled List. monocytogenes PCR Cancelled N. meningitidis (PCR) Cancelled Proteus species (PCR) Cancelled Salmonella spp. (PCR) Cancelled Serratia marcescens PCR Cancelled Staphylococcus sp PCR Cancelled Staph aureus (PCR) Cancelled mecA/C & MREJ Resist Gene Cancelled mecA/C-Methicil Resis Gene Cancelled mcr-1 Colistin Res Gene PCR Cancelled Staph epidermidis (PCR) Cancelled Staph lugdunensis PCR Cancelled S. maltophilia (PCR) Cancelled Streptococcus sp PCR Cancelled Strep agalactiae (PCR) Cancelled Strep pneumoniae (PCR) Cancelled S. pyogenes (PCR) Cancelled P. aeruginosa (PCR) Cancelled Christopher/B-Vanco Res Genes Cancelled blaIMP Car res Gene PCR Cancelled KPC-Carbap Res Gene PCR Cancelled blaNDM Car Res Gene PCR Cancelled OXA-48 Carbapenem Resis Gene (PCR) Cancelled blaVIM Car Res Gene PCR Cancelled CTX-M Gene Resistance (PCR) Cancelled Bld Cult ID Panel PCR Cancelled Bld Cult ID PCR Com Cancelled Diagnostic Findings CT abd/pelvis on 06/16/2025 IMPRESSION: There are diverticula present on the colon. There are some slight inflammatory changes noted surrounding the proximal sigmoid colon.. Cannot exclude acute diverticulitis. There is a possible left renal cyst. Hepatomegaly. Humerus X-Ray 06/18/25 15:50 INDICATION: Pain. History of sclerotic lesion in the humerus. TECHNIQUE: 2 views of the left humerus were obtained. COMPARISON: None FINDINGS: No displaced acute osseous process is identified. There is a region of sclerosis measuring 1.3 x 5.1 cm in the proximal humeral shaft in its medial aspect with a narrow zone of transition Enthesopathic changes over the humeral head. IMPRESSION: Region of sclerosis in the medial aspect of the proximal shaft may represent the sclerotic lesion described in the history. Narrow zone of transition may suggest a benign fibrocystic change however if warranted, further ration with MRI may be obtained for further assessment. negative Medications Administered Home Medications Medication Instructions Recorded Confirmed Last Taken acetaminophen 325 mg capsule 650 mg PO Q6H PRN pain 03/22/25 06/16/25 Unknown bumetanide 2 mg tablet 2 mg PO BID 04/10/25 06/16/25 Unknown calcium acetate 667 mg tablet 1,334 mg PO TIDM 04/10/25 06/16/25 Unknown carvedilol 3.125 mg tablet (Coreg) 3.125 mg PO BID 04/10/25 06/16/25 Unknown levothyroxine 125 mcg tablet 125 mcg PO MOTUWETHFR 04/10/25 06/16/25 Unknown multivitamin 1 tab PO DAILY 04/10/25 06/16/25 Unknown pantoprazole 40 mg tablet,delayed 40 mg PO DAILY 04/10/25 06/16/25 Unknown release (Protonix) amlodipine 10 mg tablet 10 mg PO DAILY 06/16/25 06/16/25 Unknown levothyroxine 125 mcg tablet 62.5 mcg PO SA 06/16/25 06/16/25 Unknown vitamin B complex and vitamin C 1 cap PO DAILY 06/16/25 06/16/25 Unknown no.20-folic acid 1 mg capsule ([place] Caps) Active Medications Generic Name Dose Route Start Last Admin Trade Name Freq PRN Reason Stop Dose Admin Acetaminophen 650 mg 06/16/25 17:25 06/17/25 18:37 Acetaminophen 325 Mg Tab PO 07/16/25 17:24 650 mg Q4H PRN Administration Pain or Fever Amlodipine Besylate 10 mg 06/17/25 09:00 06/17/25 08:51 Amlodipine Besylate 5 Mg Tab PO 07/17/25 08:59 10 mg DAILY TWILA Administration Bumetanide 2 mg 06/16/25 17:30 06/19/25 17:13 Bumetanide 1 Mg Tab PO 07/16/25 17:29 2 mg BID17 TWILA Administration Calcium Acetate 1,334 mg 06/16/25 17:30 06/19/25 17:13 Calcium Acetate 667 Mg Cap/Tab PO 07/16/25 17:29 1,334 mg TIDM TWILA Administration Carvedilol 3.125 mg 06/16/25 21:00 06/17/25 21:11 Carvedilol 3.125 Mg Tab PO 07/16/25 20:59 3.125 mg BID TWILA Administration Ferrous Sulfate 325 mg 06/17/25 17:00 06/19/25 17:14 Ferrous Sulfate 325 Mg Tab PO 07/17/25 16:59 325 mg BIDM TWILA Administration Guaifenesin/Dextromethorphan 5 ml 06/18/25 20:00 06/18/25 23:57 Guaifenesin/Dextrom Syrup 100mg/10mg 5ml Udc PO 07/18/25 19:59 5 ml Q6H PRN Administration Cough Ampicillin Sodium 2,000 mg/ 100 mls @ 200 mls/hr 06/19/25 08:00 06/19/25 08:49 Sodium Chloride IV 07/03/25 07:59 Infused Q12 TWILA Infusion Levothyroxine Sodium 125 mcg 06/19/25 06:30 06/19/25 06:15 Levothyroxine Sodium 125 Mcg Tablet PO 07/19/25 06:29 125 mcg [id number]@0630 TWILA Administration Levothyroxine Sodium 62.5 mcg 06/17/25 06:30 06/17/25 05:53 Levothyroxine Sodium 125 Mcg Tablet PO 07/17/25 06:29 62.5 mcg Sa@0630 TWILA Administration Multivitamins 1 tab 06/17/25 09:00 06/19/25 08:51 Multivitamin Tab PO 07/17/25 08:59 1 tab DAILY TWILA Administration Pantoprazole Sodium 40 mg 06/17/25 09:00 06/19/25 08:51 Pantoprazole 40 Mg Tab PO 07/17/25 08:59 40 mg DAILY TWILA Administration Vitamin B Complex/Folic Acid 1 cap 06/17/25 09:00 06/19/25 08:51 Nephrocaps PO 07/17/25 08:59 1 cap DAILY TWILA Administration
--- NOTE | 2025-06-19 15:50 | CT Scan Report ---
LEFT HUMERUS CT WITHOUT CONTRAST CLINICAL HISTORY: Sclerotic lesion. COMPARISON STUDY: Left humerus radiographs June 18, 2025. TECHNIQUE: Axial images of the left humerus were obtained without IV contrast. Sagittal and coronal r eformats were viewed. A dose lowering technique was utilized adhering to the principles of ALARA. FINDINGS: Alignment of the left shoulder is anatomic. There is moderate osteoarthritis of the left ac romioclavicular and glenohumeral joints. Subchondral cystic change within the left humeral head is de generative. A 6 mm subchondral sclerotic focus within the glenoid is likely degenerative. No suspicio us lesions within the glenoid are identified. There are no suspicious lesions within the left humerus by CT. There are no fractures. Alignment of the left elbow is anatomic. There is a small glenohumera l joint effusion. IMPRESSION: 1. No suspicious lesions within the left humerus by CT. No fractures within the left humerus. 2. Moderate osteoarthritis of the left acromioclavicular and glenohumeral joints. ACT 112: Negative or not required by law. Electronically signed by: Adair Montague M.D. 06/19/2025 3:49 PM
[2025-06-19] MEDS: HEPARIN SOD 5,000 UNIT/0.5 ML VIAL SQ SCH (20:46)
[2025-06-20 06:54] LABS: Hematocrit (blood only) 27.4 % (37.0-47.0); Hemoglobin 8.7 g/dl (12.0-16.0); Mean Corpuscular Hemoglobin 29.7 pg (25.0-34.0); Mean Corpuscular Volume 93.5 fL (80.0-100.0); Platelet Count 118 K/uL (130-400); RDW Standard Deviation 65.8 fL (36.4-46.3); Red Blood Count 2.93 M/uL (4.20-5.40); White Blood Count 8.75 K/ul (4.8-10.8)
[2025-06-20 07:11] LABS: Anion Gap 10.0 (3-11); Blood Urea Nitrogen 35.0 mg/dl (6-23); Calcium 8.8 mg/dl (8.6-10.3); Carbon Dioxide 26.0 mmol/L (21-32); Chloride 99.0 mmol/L (98-107); Creatinine Clr Calc Pharmacy 14.3 ml/min; Glucose 104.0 mg/dl (70-99(Fasting)); Magnesium 2.0 mg/dl (1.7-2.4); Potassium 3.8 mmol/L (3.5-5.1); Sodium 135.0 mmol/L (136-145)
--- NOTE | 2025-06-20 08:54 | Vascular Surgery Progress Note ---
Date of Service June 20, 2025 Assessment & Plan (1) Gram-positive bacteremia: Plan: in setting of tunneled dialysis catheter, remains with positive cultures despite IV antibiotics seen by nephrology who recommends removal with line holiday Plan for removal after dialysis on Thursday morning, and new placement on Thursday as long as blood cultures have been negative at least 48 hours. Would draw blood cultures on Thursday to have accurate information for Thursday's dialysis catheter placement Would try to avoid placement of new tunneled line on left if possible, due to plan for LUE AVF in near future (2) ESRD on dialysis: Plan: HD MWF Admission and Anticipated Discharge Date Admission Date: June 16, 2025 Subjective Feels much better this morning. Denies fevers, chills, chest pain or shortness of breath. Had dialysis yesterday. Afebrile overnight, vitals stable. Blood cultures remain positive, including cultures drawn yesterday. Physical Exam Physical Exam: WDWN, lying in bed, appears more energetic than yesterday right chest with dialysis catheter in place AA&O x 3 Results & Data Vital Signs (Past 12 Hours) Vital Signs Temp Pulse Pulse Pulse Resp BP Pulse Ox 06/20/25 08:15 37.2 C 86 20 100/61 99 06/20/25 02:08 36.6 C 92 H 16 120/56 L 95 06/19/25 22:22 36.9 C 88 16 105/57 L 97 06/19/25 21:48 84 O2 Del Method O2 Flow Rate 06/20/25 08:15 Nasal Cannula 2 06/20/25 02:08 Nasal Cannula 2 06/19/25 22:22 Nasal Cannula 2 06/19/25 21:48 Laboratory Results 06/18/25 06:36 Aerobic Blood Culture - Preliminary Blood Gram positive cocci in chains Anaerobic Blood Culture - Preliminary No growth in Anaerobic bottle after 48 hours. 06/19/25 13:14 Aerobic Blood Culture - Preliminary Blood Gram positive cocci in chains Anaerobic Blood Culture - Pending 06/18/25 06:44 Aerobic Blood Culture - Preliminary Blood Gram positive cocci in chains Anaerobic Blood Culture - Final 06/16/25 23:32 Aerobic Blood Culture - Preliminary Blood Enterococcus faecalis Anaerobic Blood Culture - Preliminary Enterococcus faecalis 06/17/25 11:37 Aerobic Blood Culture - Preliminary Blood Enterococcus faecalis Anaerobic Blood Culture - Preliminary No growth in Anaerobic bottle after 48 hours. 06/16/25 23:32 Aerobic Blood Culture - Preliminary Blood Enterococcus faecalis Anaerobic Blood Culture - Preliminary Enterococcus faecalis 06/20/25 06:30 WBC 8.75 RBC 2.93 L Hgb 8.7 L Hct 27.4 L MCV 93.5 MCH 29.7 MCHC 31.8 L RDW Std Deviation 65.[address]eff of [address] 19.6 H Plt Count 118 L MPV 11.2 Sodium 135 L Potassium 3.8 Chloride 99 Carbon Dioxide 26 Anion Gap 10 BUN 35 H D Creatinine 4.60 H* D Est Cr Clr Drug Dosing 14.3 eGFR 10.08 BUN/Creatinine Ratio 7.6 L Glucose 104 H Calcium 8.8 Phosphorus 2.8 D Magnesium 2.0 Medications Administered Home Medications Medication Instructions Recorded Confirmed Last Taken acetaminophen 325 mg capsule 650 mg PO Q6H PRN pain 03/22/25 06/16/25 Unknown bumetanide 2 mg tablet 2 mg PO BID 04/10/25 06/16/25 Unknown calcium acetate 667 mg tablet 1,334 mg PO TIDM 04/10/25 06/16/25 Unknown carvedilol 3.125 mg tablet (Coreg) 3.125 mg PO BID 04/10/25 06/16/25 Unknown levothyroxine 125 mcg tablet 125 mcg PO MOTUWETHFR 04/10/25 06/16/25 Unknown multivitamin 1 tab PO DAILY 04/10/25 06/16/25 Unknown pantoprazole 40 mg tablet,delayed 40 mg PO DAILY 04/10/25 06/16/25 Unknown release (Protonix) amlodipine 10 mg tablet 10 mg PO DAILY 06/16/25 06/16/25 Unknown levothyroxine 125 mcg tablet 62.5 mcg PO SA 06/16/25 06/16/25 Unknown vitamin B complex and vitamin C 1 cap PO DAILY 06/16/25 06/16/25 Unknown no.20-folic acid 1 mg capsule ([place] Caps) Active Medications Generic Name Dose Route Start Last Admin Trade Name Freq PRN Reason Stop Dose Admin Acetaminophen 650 mg 06/16/25 17:25 06/17/25 18:37 Acetaminophen 325 Mg Tab PO 07/16/25 17:24 650 mg Q4H PRN Administration Pain or Fever Amlodipine Besylate 10 mg 06/17/25 09:00 06/17/25 08:51 Amlodipine Besylate 5 Mg Tab PO 07/17/25 08:59 10 mg DAILY TWILA Administration Bumetanide 2 mg 06/16/25 17:30 06/19/25 17:13 Bumetanide 1 Mg Tab PO 07/16/25 17:29 2 mg BID17 TWILA Administration Calcium Acetate 1,334 mg 06/16/25 17:30 06/19/25 17:13 Calcium Acetate 667 Mg Cap/Tab PO 07/16/25 17:29 1,334 mg TIDM TWILA Administration Carvedilol 3.125 mg 06/16/25 21:00 06/17/25 21:11 Carvedilol 3.125 Mg Tab PO 07/16/25 20:59 3.125 mg BID TWILA Administration Ferrous Sulfate 325 mg 06/17/25 17:00 06/19/25 17:14 Ferrous Sulfate 325 Mg Tab PO 07/17/25 16:59 325 mg BIDM TWILA Administration Guaifenesin/Dextromethorphan 5 ml 06/18/25 20:00 06/19/25 20:50 Guaifenesin/Dextrom Syrup 100mg/10mg 5ml Udc PO 07/18/25 19:59 5 ml Q6H PRN Administration Cough Heparin Sodium (Porcine) 5,000 units 06/19/25 21:00 06/19/25 20:46 Heparin Sod 5,000 Unit/0.5 Ml Vial SQ 07/19/25 20:59 5,000 units Q12 TWILA Administration Ampicillin Sodium 2,000 mg/ 100 mls @ 200 mls/hr 06/19/25 08:00 06/19/25 21:16 Sodium Chloride IV 07/03/25 07:59 Infused Q12 TWILA Infusion Levothyroxine Sodium 125 mcg 06/19/25 06:30 06/20/25 06:14 Levothyroxine Sodium 125 Mcg Tablet PO 07/19/25 06:29 125 mcg MoTuWeThFr@0630 TWILA Administration Levothyroxine Sodium 62.5 mcg 06/17/25 06:30 06/17/25 05:53 Levothyroxine Sodium 125 Mcg Tablet PO 07/17/25 06:29 62.5 mcg Sa@0630 TWILA Administration Multivitamins 1 tab 06/17/25 09:00 06/19/25 08:51 Multivitamin Tab PO 07/17/25 08:59 1 tab DAILY TWILA Administration Pantoprazole Sodium 40 mg 06/17/25 09:00 06/19/25 08:51 Pantoprazole 40 Mg Tab PO 07/17/25 08:59 40 mg DAILY TWILA Administration Vitamin B Complex/Folic Acid 1 cap 06/17/25 09:00 06/19/25 08:51 Nephrocaps PO 07/17/25 08:59 1 cap DAILY TWILA Administration PG Care Time/CCT Total # of Minutes Spent Total Time Spent with Patient: Total time spent is greater than 50% in coordination of care (as documented) at patient's floor/unit and/or counseling patient:
--- NOTE | 2025-06-20 10:05 | Nephrology Progress Note ---
Date of Service June 20, 2025 Assessment & Plan (1) ESRD on dialysis: (2) Gram-positive bacteremia: (3) HTN (hypertension): (4) Acute on chronic anemia: (5) Headache: (6) Acute sepsis: Plan 64 year-old female ESKD on HD at [facility], started HD on 02/28/25 while inpatient at [facility]. Admitted to [facility] on 02/19/25 with LLQ pain, kidney failure, cr. 11.2 mg/d with no prior lab in several years, hemoglobin 5.7). W/U as below consistent with glomerulonephritis without nephrotic range proteinuria. Serology negative, Bx demonstrated sclerosing pauci-immune glomerulonephritis with crescents, moderate IFTA. Treated with high dose steroids and Rituxan (1000 mg q 14 d x 2 - last dose April 10). Unfortunately, kidney function continued to decline, 24 hour urine confirmed CrCl of <10 ml/min and now transitioned to ESKD, on IHD MWF. She is dialyzing via at [facility]. Rx is 3.5 hours Fx CorAL 80 400/800 2K 140Na 2Ca 35HCO3; EDW 93 kg. Has history of hypertension, GERD and hypothyroidism. She was admitted with headache for few days and on admission she was also febrile and and found to be septic and blood culture grew Enterococcus, currently on Ampicillin. TTE was negative for vegetation. Vascular surgery consulted for removal of the tunneled dialysis catheter. Also has been having ongoing issues with anemia. At the dialysis unit she has been getting high dose of Mircera, iron and urine received blood transfusion as hemoglobin kept dropping. She denies any signs of active bleeding/blood loss. On 06/07, ferritin was 1645 with Tsat 31. Has history of colon polyp, had polypectomy in June 2024 and plan was to have repeat colonoscopy in a year with family history of colon cancer. Blood pressure relatively stable. Otherwise asymptomatic. Plan for CHARISMA later today. --Plan for HD tomorrow am and removal of the tunneled dialysis catheter after dialysis. Will hold off on temporary access considering the fact that her electrolyte generally acceptable and she is still voids decent amount of urine. --Monitor hemoglobin. --Dose medications for eGFR less than 10, left nephrology precaution for future vascular access. Admission and Anticipated Discharge Date Admission Date: June 16, 2025 Subjective Vanessa was seen and evaluated this morning. She has been feeling better, denies any dizziness lightheadedness, confusion or headache currently. No fever or chills. Blood pressure low but asymptomatic. Review of Systems Review of Systems: Detailed review of system was done and pertinent positives and negatives are mentioned above. Physical Exam Constitutional: WD/WN, vitals as above + obese; no acute distress Neck: normal visual inspection Respiratory: Auscultation: lungs clear to auscultation bilaterally Cardiovascular: RRR, no murmur, no edema Extremities: + vascular access device (Rt IJ TDC) Skin: no rashes, warm and dry Neurologic: no focal motor deficits Psychiatric: Orientation: alert and oriented x 3 Results & Data Vital Signs (Past 12 Hours) Vital Signs Temp Pulse Pulse Pulse Resp BP Pulse Ox 06/20/25 08:48 75 06/20/25 08:15 37.2 C 86 20 100/61 99 06/20/25 02:08 36.6 C 92 H 16 120/56 L 95 06/19/25 22:22 36.9 C 88 16 105/57 L 97 O2 Del Method O2 Flow Rate 06/20/25 08:48 06/20/25 08:15 Nasal Cannula 2 06/20/25 02:08 Nasal Cannula 2 06/19/25 22:22 Nasal Cannula 2 PG Care Time/CCT Total # of Minutes Spent Total Time Spent with Patient: Total time spent is greater than 50% in coordination of care (as documented) at patient's floor/unit and/or counseling patient: Coding Level of Care Code 08360 SUB INP/OBS CARE 2/35MIN Diagnoses ESRD on dialysis N18.6; Z99.2 Gram-positive bacteremia R78.81 HTN (hypertension) I10 Acute on chronic anemia D64.9 Headache R51.9 Headache chronicity pattern: acute headache Headache type: unspecified Intractability: not intractable Acute sepsis A41.9 (5) Headache Headache chronicity pattern: acute headache Headache type: unspecified Intractability: not intractable Qualified Code(s): R51.9 - Headache, unspecified
--- NOTE | 2025-06-20 11:57 | Hospitalist Progress Note ---
Date of Service June 20, 2025 Assessment & Plan (1) Acute sepsis: (2) Gram-positive bacteremia: (3) Central line-associated bloodstream infection: (4) Chronic heart failure with preserved ejection fraction (HFpEF): (5) ESRD on dialysis: (6) Primary pauci-immune necrotizing and crescentic glomerulonephritis: (7) Hypothyroid: Plan Ms. Christopher is 64 year old female with PMH pauci-immune necrotizing and sclerosing glomerulonephritis, ESRD on HD, chronic anemia, chronic HFpEF, and other problems listed admitted for headache and found to have bacteremia. Patient with hgb down to 6.8 this am, noting that since last transfusion hgb only went from 6.9-7.2 No signs of hemorrhage. Patient with recent history requiring blood transfusions at prior hospitalization when diagnosed with glomerulonephritis Lesions noted on CT at that time including sclerotic oci on T11, left glenoid , left rib, and left humeral head--thought to be benign at that time, but no further work up performed. LNo lesions noted noted on CT/CXR on admission. XR Lt humerus revealed sclerotic lesion of left humerus. CT reviewed and not concern Blood cx 4/4 + enterococcus on 06/16, 1/2 +on 06/17 CHARISMA planned for afternoon HD catheter planned for removal tomorrow and replacement later in the week. Patient with continued subjective improvement reported, working to ambulate to the bathroom as able PT/OT recommended home PT/OT #Sepsis #Bacteremia 2/2 enterococcus blood cultures with enterococcus faecalis 06/17 blood culture from [facility] TMAX 24 hours 38.9 Vascular consulted for exchange: Plan for line placement on Thursday ID consulted Cards consulted for CHARISMA: plan for today transfer back to med/tele on monitor iso relative hypotension ID consult placed--reviewed recommendations this am, continue ampicillin, continue forward with CHARISMA and line removal. Will need to reach out to ID once more for final recommendations once line exchanged #Acute on chronic anemia, multifactorial #Thrombocytopenia likely multifactorial iso AoCD, sepsis, renal disease Colonoscopy 06/2024: multiple polyps removed with pathology showing tubular adenomas - colonoscopy to be repeated in 1 year, scheduled for September 2025 Hgb as low as 6.2 this admission transfusion ordered, now s/p 2 PRBC this admission repeat HH at 8.5 s/p transfusion, stable this am at 8.7 ldh 236, t bili wnl, low suspicion of active hemolysis epogen per nephrology GI consulted: low suspicion of gi bleed hemoccult ordered, stool sample no collected ye #Elevated troponin, likely demand iso infection and renal disease HS troponin 84, no reports of chest pain and EKG without acute ST changes Elevated troponin in the setting of ESRD ctm #Sclerotic lesion left humerus noted on imaging in OSH 02/2025 recommended possible bone scintography CT ordered to better characterize as possible benign lesion, ct reviewed noting osteoarthritis and no suspicious lesions #Primary pauci-immune necrotizing and crescentic glomerulonephritis: #ESRD on dialysis: Nephro consult Dialysis MWF - only received half of a treatment today due to water issues at the treatment center Plan for removal of TDC tomorrow with replacement in coming days # Headache: resolved Improved with IV Tylenol and Compazine in the ED Head CT unremarkable # Chronic heart failure with preserved ejection fraction (HFpEF): Volume managed with dialysis Continue COMPRESS[employer] SUPERINTENDENT Bumex #HTN (hypertension): relatively hypotensive hold COM[employer] SUPERINTENDENT carvedilol amlodipine, resume as able DVT ppx SCDS , platelets continue to improve, continue sq heparin dispo pending line exchange and finalized ID recs will dc with PT/OT Admission and Anticipated Discharge Date Admission Date: June 16, 2025 Subjective Reports feeling much better, notes she has been more mobile and working to use bathroom rather than bedpan. States she feels more energetic this morning in comparison to days prior Physical Exam Constitutional: WD/WN, vitals as above Respiratory: diminshed in bases Cardiovascular: rrr MELISA+ Gastrointestinal (Abdomen): normal bowel sounds, soft, nontender, no hepatosplenomegaly Neurologic: PERRL, EOMI, accommodation nl, no face palsy, no dysarthria Results & Data Results & Data Vital Signs (Past 12 Hours) Vital Signs Temp Pulse Pulse Pulse Resp BP Pulse Ox 06/20/25 08:48 75 06/20/25 08:15 37.2 C 86 20 100/61 99 06/20/25 02:08 36.6 C 92 H 16 120/56 L 95 O2 Del Method O2 Flow Rate 06/20/25 08:48 06/20/25 08:15 Nasal Cannula 2 06/20/25 02:08 Nasal Cannula 2 Laboratory Results Short CBC 06/20/25 Range/Units 06:30 WBC 8.75 (4.8-10.8) K/ul Hgb 8.7 L (12.0-16.0) g/dl Hct 27.4 L (37.0-47.0) % Plt Count 118 L (130-400) K/uL BMP 06/20/25 06:30 Sodium 135 L Potassium 3.8 Chloride 99 Carbon Dioxide 26 BUN 35 H D Creatinine 4.60 H* D Glucose 104 H Calcium 8.8
--- NOTE | 2025-06-20 12:53 | Anesthesiology Consultation ---
Date of Service June 20, 2025 Assessment & Plan Chart Review Chart Review: Acceptable Risk for Surgery and Patient NOT seen in Pre Admission Testing Consults Requested none History Surgery Operation Date: 06/20/25 12:00 Proposed Procedures p Transesophageal Echo w/Anesthesia - Dion Guadalupe DO Operation Date: 06/21/25 11:20 Proposed Procedures p Removal Dialysis Catheter - Madhu Heredia MD Operation Date: 06/26/25 08:00 Proposed Procedures p Tunneled Dialysis Line Insertion - Madhu Heredia MD Operation Date: 06/26/25 12:00 Proposed Procedures p Tunneled Dialysis Line Insertion - Madhu Heredia MD Height/Weight Height: 5 ft 7 in Weight: 91.4 kg Allergies Allergy/AdvReac Type Severity Reaction Status Date / Time latex Allergy Unknown unknown Verified 04/10/25 11:43 Medications Home Medications Medication Instructions Recorded Confirmed Last Taken acetaminophen 325 mg capsule 650 mg PO Q6H PRN pain 03/22/25 06/16/25 Unknown bumetanide 2 mg tablet 2 mg PO BID 04/10/25 06/16/25 Unknown calcium acetate 667 mg tablet 1,334 mg PO TIDM 04/10/25 06/16/25 Unknown carvedilol 3.125 mg tablet (Coreg) 3.125 mg PO BID 04/10/25 06/16/25 Unknown levothyroxine 125 mcg tablet 125 mcg PO MOTUWETHFR 04/10/25 06/16/25 Unknown multivitamin 1 tab PO DAILY 04/10/25 06/16/25 Unknown pantoprazole 40 mg tablet,delayed 40 mg PO DAILY 04/10/25 06/16/25 Unknown release (Protonix) amlodipine 10 mg tablet 10 mg PO DAILY 06/16/25 06/16/25 Unknown levothyroxine 125 mcg tablet 62.5 mcg PO SA 06/16/25 06/16/25 Unknown vitamin B complex and vitamin C 1 cap PO DAILY 06/16/25 06/16/25 Unknown no.20-folic acid 1 mg capsule (Veguita Caps) Active Medications Generic Name Dose Route Start Last Admin Trade Name Freq PRN Reason Stop Dose Admin Acetaminophen 650 mg 06/16/25 17:25 06/17/25 18:37 Acetaminophen 325 Mg Tab PO 07/16/25 17:24 650 mg Q4H PRN Administration Pain or Fever Amlodipine Besylate 10 mg 06/17/25 09:00 06/17/25 08:51 Amlodipine Besylate 5 Mg Tab PO 07/17/25 08:59 10 mg DAILY TWILA Administration Bumetanide 2 mg 06/16/25 17:30 06/19/25 17:13 Bumetanide 1 Mg Tab PO 07/16/25 17:29 2 mg BID17 TWILA Administration Calcium Acetate 1,334 mg 06/16/25 17:30 06/20/25 11:46 Calcium Acetate 667 Mg Cap/Tab PO 07/16/25 17:29 Not Given TIDM TWILA Carvedilol 3.125 mg 06/16/25 21:00 06/17/25 21:11 Carvedilol 3.125 Mg Tab PO 07/16/25 20:59 3.125 mg BID TWILA Administration Ferrous Sulfate 325 mg 06/17/25 17:00 06/19/25 17:14 Ferrous Sulfate 325 Mg Tab PO 07/17/25 16:59 325 mg BIDM TWILA Administration Guaifenesin/Dextromethorphan 5 ml 06/18/25 20:00 06/19/25 20:50 Guaifenesin/Dextrom Syrup 100mg/10mg 5ml Udc PO 07/18/25 19:59 5 ml Q6H PRN Administration Cough Ampicillin Sodium 2,000 mg/ 100 mls @ 200 mls/hr 06/19/25 08:00 06/20/25 11:15 Sodium Chloride IV 07/03/25 07:59 200 mls/hr Q12 TWILA Administration Levothyroxine Sodium 125 mcg 06/19/25 06:30 06/20/25 06:14 Levothyroxine Sodium 125 Mcg Tablet PO 07/19/25 06:29 125 mcg [id number]@0630 TWILA Administration Levothyroxine Sodium 62.5 mcg 06/17/25 06:30 06/17/25 05:53 Levothyroxine Sodium 125 Mcg Tablet PO 07/17/25 06:29 62.5 mcg Sa@0630 TWILA Administration Multivitamins 1 tab 06/17/25 09:00 06/19/25 08:51 Multivitamin Tab PO 07/17/25 08:59 1 tab DAILY TWILA Administration Pantoprazole Sodium 40 mg 06/17/25 09:00 06/19/25 08:51 Pantoprazole 40 Mg Tab PO 07/17/25 08:59 40 mg DAILY TWILA Administration Vitamin B Complex/Folic Acid 1 cap 06/17/25 09:00 06/19/25 08:51 Nephrocaps PO 07/17/25 08:59 1 cap DAILY TWILA Administration Past Medical History Medical History Chronic heart failure with preserved ejection fraction (HFpEF) HTN (hypertension) Chronic anemia ESRD on dialysis Primary pauci-immune necrotizing and crescentic glomerulonephritis Hypothyroid Past Family History Family History Father Diabetes Lung disease Mother Leukemia Son Diabetes Past Surgical History Surgical History H/O: hysterectomy Hx of colonoscopy 06/2024 Social History Smoking Status: Never smoker Do You Dip or Chew Tobacco: No Hx Alcohol Use: No Alcohol type: beer Hx Substance Use: No substance use type: does not use Physical Exam Vital Signs Last Vital Signs Temp 37.2 C 06/20/25 08:15 Pulse 75 06/20/25 08:48 Resp 20 06/20/25 08:15 BP 100/61 06/20/25 08:15 Pulse Ox 95 06/20/25 12:17 O2 Del Method Nasal Cannula 06/20/25 08:15 O2 Flow Rate 0 06/20/25 12:17 Testing Laboratory Results 06/20/25 06:30 06/20/25 06:30 PT 12.7 Seconds (9.0-12.0) H 06/18/25 08:45 INR 1.2 (0.9-1.1) H 06/18/25 08:45 APTT 23 Seconds (21-31) 06/16/25 13:35 Blood Type A Positive 06/16/25 14:36 Antibody Screen NEGATIVE 06/16/25 14:36 06/16/25 23:32 Aerobic Blood Culture - Final Blood Enterococcus faecalis Anaerobic Blood Culture - Final Enterococcus faecalis 06/16/25 23:32 Aerobic Blood Culture - Final Blood Enterococcus faecalis Anaerobic Blood Culture - Final Enterococcus faecalis 06/18/25 06:44 Aerobic Blood Culture - Preliminary Blood Enterococcus faecalis Anaerobic Blood Culture - Final 06/18/25 06:36 Aerobic Blood Culture - Preliminary Blood Enterococcus faecalis Anaerobic Blood Culture - Preliminary No growth in Anaerobic bottle after 48 hours. 06/19/25 13:14 Aerobic Blood Culture - Preliminary Blood Gram positive cocci in chains 06/17/25 11:37 Aerobic Blood Culture - Preliminary Blood Enterococcus faecalis Anaerobic Blood Culture - Preliminary No growth in Anaerobic bottle after 48 hours.
--- NOTE | 2025-06-20 12:56 | History & Physical Bridge Note ---
Date of Service June 20, 2025 History & Physical Bridge Note I have examined the patient, reviewed the History & Physical and in the interval since the performance of the History & Physical I have noted the following changes of clinical significance: no changes noted. Proceed with CHARISMA
[2025-06-20] MEDS ORDERED: PROPOFOL IV EMULSION 10 MG/ML 20 ML VIAL IV ONE ×2 (13:12→13:46)
--- NOTE | 2025-06-20 14:03 | Post Operative Brief Note ---
Cardiology Brief Post Op Date of Surgery June 20, 2025 Pre & Post Diagnosis Operation Date: 06/26/25 12:00 Procedure Preprocedure diagnosis: Persistent Enterococcus faecalis bacteremia, assess for endocarditis Post procedure diagnosis: Aortic valve endocarditis, concern for perivalvular abscess, vegetation on distal tip of tunneled dialysis line Transesophageal echocardiogram procedure: After informed consent was obtained a timeout was performed the patient was sedated with the assistance of the anesthesia service. Patient was found to have a large vegetation on the left coronary cusp and aorti c valve cusp, with 2D appearance suggestive of abscess, and severe aortic valve regurgitation. There was a small linear mobile echodensity on the distal tip of the indwelling tunneled dialysis catheter consistent with vegetation. Recommendation: Removal of Dialysis catheter Transfer to tertiary center for CT surgery consultation, family [facility]. Anna Sierra DO Job Coaching Mendoza Sierra DO Community Service Representative Gina Washington, EDIS Estimated Blood Loss 0 Findings Consistent with Post-Op Diagnosis Anesthesia Type MAC
--- NOTE | 2025-06-20 14:30 | Anesthesiology Progress Note ---
Date of Service June 20, 2025 Anesthesia Post Procedure Vital Signs Vital Signs: Temp Pulse Pulse Pulse Pulse Resp BP 06/20/25 14:20 36.6 C 73 16 101/56 L 06/20/25 14:19 72 16 110/46 L 06/20/25 14:04 75 18 118/48 L 06/20/25 13:49 71 18 106/48 L 06/20/25 12:17 06/20/25 08:48 75 06/20/25 08:15 37.2 C 86 20 100/61 06/20/25 02:08 36.6 C 92 H 16 120/56 L 06/19/25 22:22 36.9 C 88 16 105/57 L 06/19/25 21:48 84 06/19/25 20:30 06/19/25 19:56 37.4 C 87 16 112/53 L 06/19/25 19:00 06/19/25 15:54 37.1 C 80 16 105/50 L Pulse Ox Pulse Ox O2 Del Method O2 Flow Rate O2 Flow Rate 06/20/25 14:20 91 Room Air 06/20/25 14:19 91 Room Air 06/20/25 14:04 94 Room Air 06/20/25 13:49 98 Room Air 06/20/25 12:17 95 0 06/20/25 08:48 06/20/25 08:15 99 Nasal Cannula 2 06/20/25 02:08 95 Nasal Cannula 2 06/19/25 22:22 97 Nasal Cannula 2 06/19/25 21:48 06/19/25 20:30 Nasal Cannula 2 06/19/25 19:56 97 Nasal Cannula 2 06/19/25 19:00 Nasal Cannula 2 06/19/25 15:54 97 Room Air Transfer of Care Handoff Completed per policy Notes Mental Status: alert / awake / arousable Patient Amnestic to Procedure: Yes Nausea / Vomiting: adequately controlled Pain: adequately controlled Airway Patency, RR, SpO2: stable & adequate BP & HR: stable & adequate Hydration State: stable & adequate Anesthetic Complications: no major complications apparent
[2025-06-20] MEDS: DOCUSATE SODIUM 100 MG CAP PO SCH (14:50)
[2025-06-20] MEDS: HEPARIN SOD 5,000 UNIT/0.5 ML VIAL SQ SCH (14:50)
[2025-06-20] MEDS: BENZOCAINE/TETRACAIN/BUTAM 50 APPLN/5 GM CAN EXT ONE (14:51)
[2025-06-20] MEDS: POLYETHYLENE (MIRALAX) 17 GM PACK PO SCH (14:54)
--- NOTE | 2025-06-20 14:55 | XCELERA ---
[id number]
--- NOTE | 2025-06-20 16:42 | Cardiology Progress Note ---
Date of Service June 20, 2025 Assessment & Plan (1) Endocarditis: (2) Central line-associated bloodstream infection: (3) Gram-positive bacteremia: (4) Elevated troponin: (5) Chronic heart failure with preserved ejection fraction (HFpEF): Plan 64-year-old female with Enterococcus faecalis bacteremia. Persistent bacteremia noted. Concern for aortic valve endocarditis, abscess, leaflet perforation with severe aortic valve regurgitation. Vegetation also noted on distal tip of indwelling catheter terminating in the superior vena cava. * Discussed CHARISMA results with patient and extended family at the bedside * No acute CHF or conduction system disease at present * Recommend removal of HD catheter and transfer to tertiary center for CT surgery evaluation. * Patient requests [facility]. Will have transfer center determine if this institution is an option with patient's insurance. * Case discussed with Dr Brennan of the hospitalist service. * Continue antibiotics. Anna Sierra DO Admission and Anticipated Discharge Date Admission Date: June 16, 2025 Subjective Patient seen again in follow up in room 258-1 after CHARISMA completed. Mentating well. BP stable. SR on telemetry without AV block. Physical Exam Constitutional: well nourished and + ill appearing Respiratory: no labored breathing, no retractions and does not use accessory muscles Auscultation: no crackles, no rales, no rhonchi and no wheezes Cardiovascular: Rate/Rhythm: regular rate and regular rhythm Heart Sounds: normal S1, normal S2 and + murmur (1/6 mid systolic murmur heard at the left sternal border and apex) Vessels: no JVD Extremities: no edema Gastrointestinal (Abdomen): Inspection/Auscultation: normal bowel sounds; abdomen not distended Percussion/Palpation: abdomen soft; abdomen nontender, no guarding and abdomen not rigid Neurologic: CN's II-XI intact bilaterally and moves all extremities Results & Data Vital Signs (Past 12 Hours) Vital Signs Temp Pulse Pulse Pulse Resp BP Pulse Ox 06/20/25 15:50 36.8 C 82 16 109/55 L 93 06/20/25 15:23 36.8 C 78 16 109/58 L 92 06/20/25 14:50 36.7 C 75 16 111/54 L 92 06/20/25 14:35 36.6 C 74 16 111/55 L 94 06/20/25 14:20 36.6 C 73 16 101/56 L 91 06/20/25 14:19 72 16 110/46 L 91 06/20/25 14:04 75 18 118/48 L 94 06/20/25 13:49 71 18 106/48 L 98 06/20/25 12:17 06/20/25 08:48 75 06/20/25 08:15 37.2 C 86 20 100/61 99 06/20/25 08:00 Pulse Ox O2 Del Method O2 Flow Rate O2 Flow Rate 06/20/25 15:50 Room Air 06/20/25 15:23 Room Air 06/20/25 14:50 Room Air 06/20/25 14:35 Room Air 06/20/25 14:20 Room Air 06/20/25 14:19 Room Air 06/20/25 14:04 Room Air 06/20/25 13:49 Room Air 06/20/25 12:17 95 0 06/20/25 08:48 06/20/25 08:15 Nasal Cannula 2 06/20/25 08:00 Nasal Cannula 2 Coding Level of Care Code 59188 SUB INP/OBS CARE 2/35MIN Diagnoses Acute bacterial endocarditis I33.0 Endocarditis type: infective Infective endocarditis organism: bacterial Chronicity: acute Central line-associated bloodstream infection T80.211A Gram-positive bacteremia R78.81 Elevated troponin R79.89 Chronic heart failure with preserved ejection fraction (HFpEF) I50.32 (1) Endocarditis Endocarditis type: infective Infective endocarditis organism: bacterial Chronicity: acute Qualified Code(s): I33.0 - Acute and subacute infective endocarditis
--- NOTE | 2025-06-20 17:04 | Communication Note ---
Date of Service: June 20, 2025 Transesophageal echo report identified. Suspect her anemia is related to her renal failure now endocarditis. No plan for any endoscopic evaluation at this time. GI signs off reconsult as needed
[2025-06-21 06:23] LABS: Hematocrit (blood only) 27.0 % (37.0-47.0); Hemoglobin 8.3 g/dl (12.0-16.0); Mean Corpuscular Hemoglobin 29.2 pg (25.0-34.0); Mean Corpuscular Volume 95.1 fL (80.0-100.0); Platelet Count 125 K/uL (130-400); RDW Standard Deviation 66.8 fL (36.4-46.3); Red Blood Count 2.84 M/uL (4.20-5.40); White Blood Count 7.28 K/ul (4.8-10.8)
[2025-06-21 06:42] LABS: Anion Gap 10.0 (3-11); Blood Urea Nitrogen 45.0 mg/dl (6-23); Calcium 9.2 mg/dl (8.6-10.3); Carbon Dioxide 26.0 mmol/L (21-32); Chloride 100.0 mmol/L (98-107); Creatinine Clr Calc Pharmacy 11.9 ml/min; Glucose 100.0 mg/dl (70-99(Fasting)); Magnesium 2.1 mg/dl (1.7-2.4); Potassium 3.9 mmol/L (3.5-5.1); Sodium 136.0 mmol/L (136-145)
[2025-06-21 07:48] LABS: Appearance Urine Clear (Clear); Bacteria Urine Automated None Seen (None Seen); Glucose Urine UA Negative (Negative); RBC Urine Automated 0-2 /hpf (0-2)
[2025-06-21 07:52] VITALS: RESP 16; O2SAT 93
--- NOTE | 2025-06-21 09:15 | Vascular Surgery Progress Note ---
Date of Service June 21, 2025 Assessment & Plan (1) Central line-associated bloodstream infection: Plan: Echo findings noted. Plan for transfer to facility with CT surgery capacity. Discussed with Cardiology (Dr. Sierra) and Primary team (Dr. Brennan). No compelling indication for acute catheter removal. Given severe aortic valve insufficiency, overall stability of patient, and need to expedite transfer will cancel planned central line removal for today. Admission and Anticipated Discharge Date Admission Date: June 16, 2025 Subjective Patient seen in dialysis. Comfortable. Physical Exam Physical Exam: No new findings. Results & Data Vital Signs (Past 12 Hours) Vital Signs Temp Pulse Pulse Pulse Resp BP Pulse Ox 06/21/25 07:52 36.6 C 77 16 100/47 L 93 06/21/25 05:45 75 06/21/25 03:18 36.8 C 76 18 113/56 L 97 06/21/25 01:13 76 06/20/25 23:11 37.1 C 79 16 109/53 L 95 06/20/25 22:19 O2 Del Method O2 Flow Rate 06/21/25 07:52 Room Air 06/21/25 05:45 06/21/25 03:18 Nasal Cannula 2 06/21/25 01:13 06/20/25 23:11 Nasal Cannula 2 06/20/25 22:19 Nasal Cannula 2 PG Care Time/CCT Total # of Minutes Spent Total Time Spent with Patient: Total time spent is greater than 50% in coordination of care (as documented) at patient's floor/unit and/or counseling patient:
--- NOTE | 2025-06-21 09:30 | Nephrology Progress Note ---
Date of Service June 21, 2025 Assessment & Plan (1) ESRD on dialysis: (2) Gram-positive bacteremia: (3) HTN (hypertension): (4) Acute on chronic anemia: (5) Headache: (6) Acute sepsis: Plan 64 year-old female ESKD on HD at [facility], started HD on 02/28/25 while inpatient at [facility]. Admitted to [facility] on 02/19/25 with LLQ pain, kidney failure, cr. 11.2 mg/d with no prior lab in several years, hemoglobin 5.7). W/U as below consistent with glomerulonephritis without nephrotic range proteinuria. Serology negative, Bx demonstrated sclerosing pauci-immune glomerulonephritis with crescents, moderate IFTA. Treated with high dose steroids and Rituxan (1000 mg q 14 d x 2 - last dose April 10). Unfortunately, kidney function continued to decline, 24 hour urine confirmed CrCl of <10 ml/min and now transitioned to ESKD, on IHD MWF. She is dialyzing via at [facility]. Rx is 3.5 hours Fx CorAL 80 400/800 2K 140Na 2Ca 35HCO3; EDW 93 kg. Has history of hypertension, GERD and hypothyroidism. She was admitted with headache for few days and on admission she was also febrile and and found to be septic and blood culture grew Enterococcus, currently on Ampicillin. TTE was negative for vegetation. Vascular surgery consulted for removal of the tunneled dialysis catheter. Also has been having ongoing issues with anemia. At the dialysis unit she has been getting high dose of Mircera, iron and urine received blood transfusion as hemoglobin kept dropping. She denies any signs of active bleeding/blood loss. On 06/07, ferritin was 1645 with Tsat 31. Has history of colon polyp, had polypectomy in June 2024 and plan was to have repeat colonoscopy in a year with family history of colon cancer. CHARISMA on 06/20/25 showed aortic valve endocarditis, abscess, leaflet perforation with severe aortic valve regurgitation. as well as vegetation on distal tip of T DC terminating in the superior vena cava. Blood pressure relatively stable. Otherwise asymptomatic. --tolerating HD, vitals stable. --waiting on Transfer to [facility] for CT surgery evaluation. --Dose medications for eGFR less than 10, left nephrology precaution for future vascular access. Admission and Anticipated Discharge Date Admission Date: June 16, 2025 Subjective Vanessa was seen and evaluated during hemodialysis treatment this morning. She has been tolerating dialysis well, tolerating UF goal of 2 L, vitals stable, denies any dizziness lightheadedness, confusion or headache currently. Blood Cx from 06/19/25 remains positive. CHARISMA on 06/20/25 showed aortic valve endocarditis, abscess, leaflet perforation with severe aortic valve regurgitation. as well as vegetation on distal tip of TDC terminating in the superior vena cava. Review of Systems Review of Systems: Detailed review of system was done and pertinent positives and negatives are mentioned above. Physical Exam Constitutional: WD/WN, vitals as above + obese; no acute distress Eyes: + anicteric sclerae Neck: normal visual inspection Respiratory: Auscultation: lungs clear to auscultation bilaterally Cardiovascular: Extremities: + vascular access device (Rt IJ TDC) Skin: no rashes, warm and dry Neurologic: no focal motor deficits Psychiatric: Orientation: alert and oriented x 3 Results & Data Vital Signs (Past 12 Hours) Vital Signs Temp Pulse Pulse Pulse Resp BP Pulse Ox 06/21/25 07:52 36.6 C 77 16 100/47 L 93 06/21/25 05:45 75 06/21/25 03:18 36.8 C 76 18 113/56 L 97 06/21/25 01:13 76 06/20/25 23:11 37.1 C 79 16 109/53 L 95 06/20/25 22:19 O2 Del Method O2 Flow Rate 06/21/25 07:52 Room Air 06/21/25 05:45 06/21/25 03:18 Nasal Cannula 2 06/21/25 01:13 06/20/25 23:11 Nasal Cannula 2 06/20/25 22:19 Nasal Cannula 2 PG Care Time/CCT Total # of Minutes Spent Total Time Spent with Patient: Total time spent is greater than 50% in coordination of care (as documented) at patient's floor/unit and/or counseling patient: Coding Level of Care Code 46145 SUB INP/OBS CARE 2/35MIN Diagnoses ESRD on dialysis N18.6; Z99.2 Gram-positive bacteremia R78.81 HTN (hypertension) I10 Acute on chronic anemia D64.9 Headache R51.9 Headache chronicity pattern: acute headache Headache type: unspecified Intractability: not intractable Acute sepsis A41.9 (5) Headache Headache chronicity pattern: acute headache Headache type: unspecified Intractability: not intractable Qualified Code(s): R51.9 - Headache, unspecified
[2025-06-21 12:09] VITALS: BP 105/48; TEMP 97.7
--- NOTE | 2025-06-21 13:04 | Discharge Summary ---
Discharge Summary Date of Service June 21, 2025 Principal Dx & Hospital Course #1 = Principal Diagnosis (1) Acute sepsis: (2) Gram-positive bacteremia: (3) Central line-associated bloodstream infection: (4) Chronic heart failure with preserved ejection fraction (HFpEF): (5) ESRD on dialysis: (6) Primary pauci-immune necrotizing and crescentic glomerulonephritis: (7) Hypothyroid: Plan Ms. Christopher is 64 year old female with PMH pauci-immune necrotizing and sclerosing glomerulonephritis, ESRD on HD, chronic anemia, chronic HFpEF, and other problems listed admitted for headache and found to have bacteremia. Patient with hgb down to 6.2 this admission, noting that since last transfusion hgb only went from 6.9-7.2 Patient recieved total of 2UPRBC during admission . No signs of hemorrhage. Patient with recent history requiring blood transfusions at prior hospitalization when diagnosed with glomerulonephritis. Suspect this anemia is secondary to endocarditis and bacteremia. Hgb stable since 06/19 a round 8/5-8.7. Lesions noted on CT at that time including sclerotic oci on T11, left glenoid , left rib, and left humeral head--thought to be benign at that time, but no further work up performed. LNo lesions noted noted on CT/CXR on admission. XR Lt humerus revealed sclerotic lesion of left humerus. CT left humerus reviewed and not concerning for malignancy. Blood cultures: 06/16: 4/4 + enterococcus faecialis 06/17: 1/2 + enterococcus faecialis 06/18: 1/2 + enterococcus faecialis 06/19: 1/2 + enterococcus faecialis CHARISMA planned 06/20 revealed concern for aortic valve endocarditis, abscess, leaflet perforation with severe aortic valve regurgitation. Vegetation also noted on distal tip of indwelling catheter terminating in the superior vena cava. Patient to be transferred to [place] for CT surgical evaluation. Patient remains on ampcillin at this time from 06/19-present Previously on vanc/cefepime from 06/16-06/19 Patient reports subjective improvement despite underlying clinical concerns. #Sepsis #Bacteremia 2/2 enterococcus #aortic valve endocarditis c/b severe aortic insufficiency and perivalvular abscess blood cultures with enterococcus faecalis 06/17 blood culture from [facility] Vascular consulted for exchange: hold until transfer given risk of reseeding line ID consulted: continue ampcillin Cards consulted for CHARISMA: aortic valve endocarditis, abscess, leaflet perforation with severe aortic valve regurgitation. Vegetation also noted on distal tip of indwelling catheter terminating in the superior vena cava. Transfer to [place] #Acute on chronic anemia, multifactorial #Thrombocytopenia likely multifactorial iso AoCD, sepsis, renal disease Colonoscopy 06/2024: multiple polyps removed with pathology showing tubular adenomas - colonoscopy to be repeated in 1 year, scheduled for September 2025 Hgb as low as 6.2 this admission transfusion ordered, now s/p 2 PRBC this admission repeat HH at 8.5 s/p transfusion, stable this am at 8.7 ldh 236, t bili wnl, low suspicion of active hemolysis epogen per nephrology GI consulted: low suspicion of gi bleed stable at this time, 8.3 on discharge platelets uptrending #Elevated troponin, likely demand iso infection and renal disease HS troponin 84, no reports of chest pain and EKG without acute ST changes Elevated troponin in the setting of ESRD ctm #Sclerotic lesion left humerus noted on imaging in OSH 02/2025 recommended possible bone scintography CT ordered to better characterize as possible benign lesion, ct reviewed noting osteoarthritis and no suspicious lesions #Primary pauci-immune necrotizing and crescentic glomerulonephritis: #ESRD on dialysis: Nephro consult Dialysis MWF - only received half of a treatment today due to water issues at the treatment center hold TDC exchange until surgical eval for endocarditis # Headache: resolved Improved with IV Tylenol and Compazine in the ED Head CT unremarkable # Chronic heart failure with preserved ejection fraction (HFpEF): Volume managed with dialysis Continue SOLUTION MIXER Bumex #HTN (hypertension): relatively hypotensive hold SOLUTION MIXER carvedilol amlodipine, resume as able Notes For Next Care Provider Medication Changes From Visit Holding amlodipine and coreg iso relative hypotension prior to transfer on Ampcillin 2g q12 for enterococcus bacteremia Admission HPI Per Admitting Provider 64 year old female with PMH pauci-immune necrotizing and sclerosing glomerulonephritis, ESRD on HD, chronic anemia, chronic HFpEF, and other problems listed below who presents to the ED for evaluation of headache. Daughter is at bedside who provides history. Patient has been having an ongoing headache for the past 1 week. Also has had associated lightheadedness with standing. Patient went for dialysis today and only received half a treatment due to water issues at the center. Due to ongoing headache, patient presented to the ED for further evaluation. No other symptoms reported. Denies any other recent illnesses, fevers, chills. Has been having chronic nausea and poor appetite for the past several months. Denies abdominal pain, vomiting, diarrhea, dark tarry stools, bright red bleeding per rectum. Denies chest pain, Shortness of breath, and palpitations. Patient has been on dialysis since February. Was found to be profoundly anemic with renal failure and diverticulitis. Patient was treated at [facility]. Daughter reports ongoing issues with anemia and has received 3 or 4 transfusions as an outpatient. She does not believe she has received iron infusions or Procrit injections. Patient is scheduled for EGD and colonoscopy however not until September. in the ED, labs show Hgb 6.9, HS troponin 84, EKG without acute ST changes. Head CT negative for acute findings. Patient was given IV Tylenol and IV Compazine. She has been typed and crossed for 1 unit of blood. Admission Exam Per Admitting Provider Constitutional: WD/WN, vitals as above + obese; no acute distress Respiratory: normal respiratory effort; no respiratory distress Auscultation: + diminished lung sounds Cardiovascular: Rate/Rhythm: regular rate and regular rhythm Vessels: normal peripheral pulses Extremities: + edema (+1-2 edema BLE) Gastrointestinal (Abdomen): Percussion/Palpation: abdomen soft; abdomen nontender Skin: no rashes, warm and dry Neurologic: no focal motor deficits Psychiatric: Orientation: oriented x 3 Sleeping, arouses easily to verbal stimuli Discharge Exam Constitutional chronically ill appearing, but pleasant AOx4 and communicative Neck RIJ TDC with no signs of superficial infection Respiratory normal respiratory effort, lungs clear to auscultation Cardiovascular MELISA+ RRR Skin scattered purpura on BUE, skin tear on left forearm Updated Medication List Medication Instructions Recorded Confirmed Type acetaminophen 325 mg capsule 650 mg PO Q6H PRN pain 03/22/25 06/16/25 History bumetanide 2 mg tablet 2 mg PO BID 04/10/25 06/16/25 History calcium acetate 667 mg tablet 1,334 mg PO TIDM 04/10/25 06/16/25 History carvedilol 3.125 mg tablet (Coreg) 3.125 mg PO BID 04/10/25 06/16/25 History levothyroxine 125 mcg tablet 125 mcg PO MOTUWETHFR 04/10/25 06/16/25 History multivitamin 1 tab PO DAILY 04/10/25 06/16/25 History pantoprazole 40 mg tablet,delayed 40 mg PO DAILY 04/10/25 06/16/25 History release (Protonix) amlodipine 10 mg tablet 10 mg PO DAILY 06/16/25 06/16/25 History levothyroxine 125 mcg tablet 62.5 mcg PO SA 06/16/25 06/16/25 History vitamin B complex and vitamin C 1 cap PO DAILY 06/16/25 06/16/25 History no.20-folic acid 1 mg capsule (Oscar Caps) ampicillin sodium 2 gram 2 g IV Q12H 06/21/25 Rx intravenous solution docusate sodium 100 mg capsule 100 mg PO BID #0 caps 06/21/25 Rx ferrous sulfate 325 mg (65 mg 325 mg PO BIDM #0 tabs 06/21/25 Rx iron) tablet,delayed release heparin, porcine (PF) 5,000 5,000 unit (0.5 mL) subcut Q8H #0 06/21/25 Rx unit/0.5 mL injection syringe mL polyethylene glycol 3350 17 gram 17 g PO DAILY #0 ea 06/21/25 Rx oral powder packet (Miralax) Hospital Stay Data Consultations 06/16/25 15:17 ED Decision to Admit Stat 06/16/25 17:25 Consult Hematology Routine Consult Nephrology Routine 06/18/25 07:24 Consult Gastroenterology Routine 06/18/25 07:29 Consult Infectious Diseases Routine 06/18/25 07:30 Consult Cardiology Routine 06/18/25 08:32 Consult Vascular Surgery Routine 06/18/25 14:46 Consult Anesthesiology Routine 06/19/25 14:32 Consult Anesthesiology Routine Procedures Performed Operation Date: 06/26/25 12:00 <No data on this case meets the specified criteria> Diagnostic Imagining Performed 06/16/25 14:24 CT head/brain wo con Stat 06/16/25 20:05 CT abd pelvis wo con Routine 06/19/25 11:24 CT humerus LT wo con Routine Pending Results Patient Have Any Pending Studies at Discharge: No Discharge Instructions Given to Patient (Per Discharging Provider) Ms. Christopher is 64 year old female with PMH pauci-immune necrotizing and sclerosing glomerulonephritis, ESRD on HD, chronic anemia, chronic HFpEF, and other problems listed admitted for headache and found to have bacteremia. Patient with hgb down to 6.2 this admission, noting that since last transfusion hgb only went from 6.9-7.2 Patient recieved total of 2UPRBC during admission . No signs of hemorrhage. Patient with recent history requiring blood transfusions at prior hospitalization when diagnosed with glomerulonephritis. Suspect this anemia is secondary to endocarditis and bacteremia. Hgb stable since 06/19 around 8/5-8.7. Lesions noted on CT at that time including sclerotic oci on T11, left glenoid , left rib, and left humeral head--thought to be benign at that time, but no further work up performed. LNo lesions noted noted on CT/CXR on admission. XR Lt humerus revealed sclerotic lesion of left humerus. CT left humerus reviewed and not concerning for malignancy. Blood cultures: 06/16: 4/4 + enterococcus faecialis 06/17: 1/2 + enterococcus faecialis 06/18: 1/2 + enterococcus faecialis 06/19: 1/2 + enterococcus faecialis CHRAISMA planned 06/20 revealed concern for aortic valve endocarditis, abscess, leaflet perforation with severe aortic valve regurgitation. Vegetation also noted on distal tip of indwelling catheter terminating in the superior vena cava. Patient to be transferred to [place] for CT surgical evaluation. Patient remains on ampcillin at this time from 06/19-present Previously on vanc/cefepime from 06/16-06/19 Patient reports subjective improvement despite underlying clinical concerns. #Sepsis #Bacteremia 2/2 enterococcus #aortic valve endocarditis c/b severe aortic insufficiency and perivalvular abscess blood cultures with enterococcus faecalis 06/17 blood culture from [facility] Vascular consulted for exchange: hold until transfer given risk of reseeding line ID consulted: continue ampcillin Cards consulted for CHARISMA: aortic valve endocarditis, abscess, leaflet perforation with severe aortic valve regurgitation. Vegetation also noted on distal tip of indwelling catheter terminating in the superior vena cava. Transfer to [place] #Acute on chronic anemia, multifactorial #Thrombocytopenia likely multifactorial iso AoCD, sepsis, renal disease Colonoscopy 06/2024: multiple polyps removed with pathology showing tubular adenomas - colonoscopy to be repeated in 1 year, scheduled for September 2025 Hgb as low as 6.2 this admission transfusion ordered, now s/p 2 PRBC this admission repeat HH at 8.5 s/p transfusion, stable this am at 8.7 ldh 236, t bili wnl, low suspicion of active hemolysis epogen per nephrology GI consulted: low suspicion of gi bleed stable at this time, 8.3 on discharge platelets uptrending #Elevated troponin, likely demand iso infection and renal disease HS troponin 84, no reports of chest pain and EKG without acute ST changes Elevated troponin in the setting of ESRD ctm #Sclerotic lesion left humerus noted on imaging in OSH 02/2025 recommended possible bone scintography CT ordered to better characterize as possible benign lesion, ct reviewed noting osteoarthritis and no suspicious lesions #Primary pauci-immune necrotizing and crescentic glomerulonephritis: #ESRD on dialysis: Nephro consult Dialysis MWF - only received half of a treatment today due to water issues at the treatment center hold TDC exchange until surgical eval for endocarditis # Headache: resolved Improved with IV Tylenol and Compazine in the ED Head CT unremarkable # Chronic heart failure with preserved ejection fraction (HFpEF): Volume managed with dialysis Continue SOLUTION MIXER Bumex #HTN (hypertension): relatively hypotensive hold SOLUTION MIXER carvedilol amlodipine, resume as able Total Time Total Time Spent Total Time Spent (In Minutes): 55
[2025-06-21 14:33] VITALS: PULSE 86
[2025-06-22 22:42] LABS: ANCA Screen Negative (Negative); Myeloperoxidase Ab 3.3 AI (<1.0)
== END 2025-06-21 14:33 | disposition short-term general hospital (02) | DRG 314 ==
LOC: ED 12:57 → 4W 15:05 → INTOOBSV 15:05 → SUATTDRO 15:05 → 4W 17:02 → 3W 06-17 18:32 → 2W 06-18 10:37